=== PATIENT | male | born 1960 | race Caucasian/White ===

== ENCOUNTER 2021-06-04 16:25 | Emergency (ER) | payer MEDICAID, OTHER ==
[~2021-06-04] VITALS: Ht 190.5 cm; Wt 62.4 kg
[2021-06-04] MEDS ORDERED: FAMOTIDINE (10MG/ML) 2ML VL IV ONE (17:15)
[2021-06-04] MEDS ORDERED: ALUM & MAG HYDROX-SIMETH LIQ(MAALOX) 30 ML PO ONE (17:15)
[2021-06-04] MEDS ORDERED: LIDOCAINE VISCOUS 2% 15ML UD PO ONE (17:15)
[2021-06-04] MEDS ORDERED: ONDANSETRON HCL 4 MG/2 ML VIAL IV ONE (17:15)
[2021-06-04 17:52] LABS: Urine Bacteria NONE SEEN /hpf (None Seen); Urine Blood Negative /uL (Negative); Urine Specific Gravity 1.017 (1.001-1.035); Urine WBC <1 /hpf (0 - 3)
[2021-06-04 19:33] LABS: Basophils # (auto) 0 10 ^3/uL (0-0.2); Basophils % (auto) 0.4 % (0.0-2.0); Eosinophils # (auto) 0 10 ^3/uL (0-0.8); Eosinophils % (auto) 0.4 % (0.0-7.0); Hematocrit 42.5 % (41.0-53.0); Hemoglobin 14.4 g/dL (13.5-17.5); Lymphocytes # (auto) 1.6 10 ^3/uL (0.4-5.4); Lymphocytes % (auto) 17.6 % (10.0-50.0); Mean Corpuscular Hemoglobin 29.7 pg (28.0-32.0); Mean Corpuscular Hgb Conc. 33.8 g/dL (32.0-36.0); Mean Corpuscular Volume 87.7 fL (80.0-100.0); Monocytes % (auto) 11.3 % (0.0-12.0); Neutrophils # (auto) 6.2 10 ^3/uL (1.6-8.6); Neutrophils % (auto) 70.3 % (37.0-80.0); Red Blood Cells 4.85 10^6/uL (4.5-5.90); Red Cell Distribution Width 14.6 % (11.8-14.3); White Blood Cell 8.8 10^3/uL (4.4-10.8)
[2021-06-04 19:50] LABS: Albumin 3.7 g/dL (3.4-5.0); Calcium 9.2 mg/dL (8.5-10.1); Potassium 4.4 mmol/L (3.5-5.1)
[2021-06-04 19:52] LABS: BUN/Creatinine Ratio 9.1
[2021-06-04 19:57] LABS: Bilirubin, Total 0.6 mg/dL (0.2-1.0); Total Protein 7.4 g/dL (6.4-8.2)
[2021-06-04] MEDS ORDERED: ONDANSETRON ODT 4 MG TAB PO ONE (20:15)
[2021-06-04] MEDS ORDERED: FAMOTIDINE 20 MG TAB PO ONE (20:30)
[2021-06-04] MEDS ORDERED: LACTULOSE 20Gm/30ML SOLN PO ONE (21:45)
[2021-06-04] MEDS ORDERED: POLYETHYLENE GLYCOL 17 GM PWDR PO ONE (21:45)
[2021-06-04] MEDS ORDERED: DOCUSATE SOD 100 MG CAP PO ONE (21:45)
[2021-06-04] MEDS ORDERED: DOCU-94 PO (22:43)
[2021-06-04 23:00] VITALS: BP 124/71
== END 2021-06-04 23:06 | disposition home or self-care (01) ==
LOC: ER 16:25
DX: K59.00 Constipation, unspecified (principal); N17.9 Acute kidney failure, unspecified; R91.1 Solitary pulmonary nodule; Z79.899 Other long term (current) drug therapy
CPT/HCPCS: 36415; 71046; 80053; 81001; 83605; 83690; 84484; 85025; 93005; 99285; Q0162

== ENCOUNTER → 2023-11-13 | Outpatient (CLI) | payer MEDICAID ==
[~2023-11-13] MED LIST: DOCU-94 PO
[2023-11-14 08:06] LABS: Thyroxine (T4) 7.9 ug/dL (4.5-12.0)
== END | disposition home or self-care (01) ==
LOC: LAB 08:15
PROVIDERS: ATTEND Internal Medicine
DX: I10 Essential (primary) hypertension (principal); E66.9 Obesity, unspecified; Z79.899 Other long term (current) drug therapy
CPT/HCPCS: 36415; 83036; 84443

== ENCOUNTER 2024-03-24 11:24 | Inpatient (IN) | payer MEDICAID ==
[~2024-03-24] VITALS: Ht 190.5 cm; Wt 141.8 kg
[~2024-03-24 11:24] MED LIST changes: +ATEN50TA PO; +BACL20TA PO; +SEMA2.4I SC
--- NOTE | 2024-03-24 11:58 | DVH ---
CHEST RADIOGRAPH Indication: sob Technique: Single frontal view of the chest was obtained COMPARISON: None FINDINGS: Lines and Tubes: None Lungs: Clear Pleura: No effusion. No pneumothorax. Cardiomediastinal contours: Unremarkable Bones: Unremarkable IMPRESSION: No acute disease.
--- NOTE | 2024-03-24 12:08 | ED.PDOC ---
History of Present Illness HPI Comments 63 y/o M presents with c/o shortness of breath and cough for the past 2x weeks, today. He denies having any palpitations, chest pain, wheezing, dizziness, or other associated symptoms or modifiers at this time. Chief Complaint: Shortness of Breath Time Seen by MD: 11:45 Primary Care Provider: KAREN Zavala Notes: Nurses Notes, Medications, Allergies Allergies: Coded Allergies: NO KNOWN ALLERGIES (Unverified , 06/04/21) Home Meds Active Scripts Docusate Sodium (Colace) 100 Mg Cap, 1 CAP PO BID for 7 Days, #14 CAP Prov:SAMANTHA GARCIA MD 06/04/21 Information Source: Patient Mode of Arrival: Ambulatory Severity: Moderate Timing: Hours Duration: Since onset Prehospital treatment: None Past Medical History PAST MEDICAL HISTORY: Asthma, HTN Past Medical History (Other): morbid obesity, L-4-5 injury Surgical History: Denies all surgeries Family History Family History: Reviewed,noncontributory to illness, No family hx of Cancer, No family hx of DM, No family hx of Heart jenny, No family hx of HTN, No family hx ofKidney jenny, No family hx of Liver jenny, No family hx of Lung jenny, No family hx of Stroke Social History Smoker: Non-Smoker, Secondhand Alcohol: Denies ETOH Use Drugs: Denies Drug Use Lives In: Home Respiratory: reports: cough, shortness of breath All Other Systems: Reviewed and Negative (negative unless otherwise stated above or in HPI) Physical Exam General Appearance: Moderate Distress HEENT: Normal ENT Inspection, Pharynx Normal, TMs Normal Neck: Full Range of Motion, Non-Tender, Normal, Normal Inspection Respiratory: Other (Coarse breath sounds) Cardiovascular: No Edema, No JVD, No Murmur, No Gallop, Normal Peripheral Pulses, Regular Rate/Rhythm Breast Exam: Deferred Gastrointestinal: No Organomegaly, Non Tender, No Pulsatile Mass, Normal Bowel Sounds, Soft Genitalia: Deferred Pelvic: Deferred Rectal: Deferred Extremities: No calf tenderness, Normal capillary refill, Normal inspection, Normal range of motion, Non-tender, No pedal edema Musculoskeletal : Apperance: Normal Neurologic: Alert, 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 Was a procedure done?: No EKG EKG : Pulse Rate (adult): 80 [place]: Normal Cardiac Rhythm: NSR Block: None Hypertrophy: None ST: Normal Differential Dx Considerations may include: Bronchitis Upper respiratory tract infection X-Ray, Labs, Meds, VS Vital Signs Date Time Temp Pulse Resp B/P (MAP) Pulse Ox O2 Delivery O2 Flow Rate FiO2 03/24/24 12:08 80 03/24/24 11:44 80 03/24/24 11:35 22 96 Room Air* 0 21 03/24/24 11:35 97.8 86 22 144/84 (104) 96 Lab Test 03/24/24 12:00 Range/Units White Blood Count 4.7 4.4-10.8 10^3/uL Red Blood Count 4.61 4.5-5.90 10^6/uL Hemoglobin 13.6 13.5-17.5 g/dL Hematocrit 39.8 L 41.0-53.0 % Mean Corpuscular Volume 86.4 80.0-100.0 fL Mean Corpuscular Hemoglobin 29.5 28.0-32.0 pg Mean Corpuscular Hemoglobin Concent 34.1 32.0-36.0 g/dL Red Cell Distribution Width 13.9 11.8-14.3 % Platelet Count 160 140-450 10^3/uL Mean Platelet Volume 7.8 6.9-10.8 fL Neutrophils (%) (Auto) 52.5 37.0-80.0 % Lymphocytes (%) (Auto) 36.9 10.0-50.0 % Monocytes (%) (Auto) 8.9 0.0-12.0 % Eosinophils (%) (Auto) 1.1 0.0-7.0 % Basophils (%) (Auto) 0.6 0.0-2.0 % Neutrophils # (Auto) 2.5 1.6-8.6 10 ^3/uL Lymphocytes # (Auto) 1.7 0.4-5.4 10 ^3/uL Monocytes # (Auto) 0.4 0-1.3 10 ^3/uL Eosinophils # (Auto) 0.1 0-0.8 10 ^3/uL Basophils # (Auto) 0 0-0.2 10 ^3/uL Nucleated Red Blood Cells 0.1 % D-Dimer, Quantitative 0.36 0.0-0.49 mg/L FEU Sodium Level 142 136-145 mmol/L Potassium Level 4.0 3.5-5.1 mmol/L Chloride Level 108 H 98-107 mmol/L Carbon Dioxide Level 26 20-31 mmol/L Anion Gap 8 5-15 Blood Urea Nitrogen 11 9-23 mg/dL Creatinine 1.05 0.700-1.30 mg/dL Glomerular Filtration Rate Calc 79 >90 mL/min BUN/Creatinine Ratio 10.5 10.0-20.0 Serum Glucose 82 74-106 mg/dL Calcium Level 9.4 8.7-10.4 mg/dL Troponin I High Sensitivity 3 L </=54 ng/L Influenza Type A Antigen Pending Influenza Type B Antigen Pending [place] [id number] Ph: [phone] DIAGNOSTIC IMAGING Diagnostic Imaging Report : [id number] Signed PATIENT: KARELY GARCIA ACCT: [id number] UNIT: [id number] : 1960 LOC: ER ROOM / BED: / AGE / SEX: 63 / M ADM STATUS: REG ER SERVICE 44 ORDERING PHYSICIAN: STARLA FUENTES MD PROCEDURE(s): CXRP - CHEST PORTABLE REASON: sob ORDER NUMBER(s): [id number], ACCESSION NUMBER(s): [id number] CHEST RADIOGRAPH Indication: sob Technique: Single frontal view of the chest was obtained COMPARISON: None FINDINGS: Lines and Tubes: None Lungs: Clear Pleura: No effusion. No pneumothorax. Cardiomediastinal contours: Unremarkable Bones: Unremarkable IMPRESSION: No acute disease. ATED BY: SHANE HOFFMAN MD DICTATED DATE/TIME: 03/24/24 115 SIGNED BY: SHANE HOFFMAN MD SIGNED DATE/TIME: 03/24/24 115 CC: Patient alert. Complaining of shortness a breath. Vitals stable. Answering all questions. Chest x-ray reviewed does not show any acute changes. EKG reviewed does not show any acute changes. Explained to the patient. Time of 1ST Reevaluation: 12:15 Reevaluation 1ST: Unchanged Patient Education/Counseling: Diagnosis, Treatment Family Education/Counseling: No Family Present Departure 1 Departure Time of Disposition: 12:41 Impression: Primary Impression: Bronchitis Disposition: 01 HOME / SELF CARE / HOMELESS Condition: Good Discharged With: Self Critical Care Note Critical Care Time?: No Stability Stability form required: No Heart Score Heart Score: Heart Score Response (Comments) Value History N/A 0 EKG N/A 0 Age N/A 0 Risk Factors N/A 0 Troponin N/A 0 Total 0 I personally scribed for STARLA FUENTES MD ([email or web address]) on 03/24/24 at 12:08. Electronically submitted by Chuck Kaur ([email or web address]). STARLA FUENTES MD Mar 24, 2024 12:08
[2024-03-24 12:17] LABS: Basophils # (auto) 0 10 ^3/uL (0-0.2); Basophils % (auto) 0.6 % (0.0-2.0); Eosinophils # (auto) 0.1 10 ^3/uL (0-0.8); Eosinophils % (auto) 1.1 % (0.0-7.0); Hematocrit 39.8 % (41.0-53.0); Hemoglobin 13.6 g/dL (13.5-17.5); Lymphocytes # (auto) 1.7 10 ^3/uL (0.4-5.4); Lymphocytes % (auto) 36.9 % (10.0-50.0); Mean Corpuscular Hemoglobin 29.5 pg (28.0-32.0); Mean Corpuscular Hgb Conc. 34.1 g/dL (32.0-36.0); Mean Corpuscular Volume 86.4 fL (80.0-100.0); Monocytes # (auto) 0.4 10 ^3/uL (0-1.3); Monocytes % (auto) 8.9 % (0.0-12.0); Neutrophils # (auto) 2.5 10 ^3/uL (1.6-8.6); Neutrophils % (auto) 52.5 % (37.0-80.0); Nucleated Red Blood Cells % 0.1 %; Platelet Count (auto) 160 10^3/uL (140-450); Red Blood Cells 4.61 10^6/uL (4.5-5.90); Red Cell Distribution Width 13.9 % (11.8-14.3); White Blood Cell 4.7 10^3/uL (4.4-10.8)
[2024-03-24 12:29] LABS: Sodium 142 mmol/L (136-145)
[2024-03-24 12:30] LABS: Anion Gap 8 (5-15); Calcium 9.4 mg/dL (8.7-10.4); Carbon Dioxide 26 mmol/L (20-31)
[2024-03-24 12:35] LABS: BUN/Creatinine Ratio 10.5 (10.0-20.0); Blood Urea Nitrogen 11 mg/dL (9-23); Glucose 82 mg/dL (74-106)
[2024-03-24 12:54] LABS: Chloride 108 mmol/L (98-107)
[2024-03-24 18:35] LABS: Rapid Influenza A Negative (Negative); Rapid Influenza B Negative (Negative)
[2024-03-24] MEDS ORDERED: cefTRIAXone 1GM/50ML D5W 50 ML IV ONE (21:00)
[2024-03-24] MEDS: IPRATROPIUM BROM 0.5 MG/2.5ML INH SOL NEB ONE (21:19)
[2024-03-24] MEDS: ALBUTEROL SULF 2.5 MG/0.5ML(0.5%) NEB SOLN NEB ONE (21:19)
--- NOTE | 2024-03-24 22:44 | DVHHPRES ---
History of Present Illness Resident Creating Document: MAGALI SMITH History of Present Illness This is a 63-year-old male with past medical history of asthma, hypertension, morbid obesity, past surgical history of left knee arthroscopy 30 years ago. The patient presented to the ED with chief complaint of shortness of breaths and cough. Patient states that symptoms started two weeks ago but worsened recently requiring visit to the ED. patient states that two weeks ago he started having shortness of breath associated with cough with sputum production whitish/ye llowish in color. The patient also stated that he has not been able to lie down on bed because of shortness of breath. Patient denies fever or chills at this time. Patient also reports bilateral lower extremity edema has been going on and off in the past 2 years and he believes that is due to bilateral knee ostearthritis. Initial labs were grossly unremarkable, chest x-ray was showing very mild vascular congestion but no evidence of solid consolidations at this time. We will order BNP and echocardiogram to rule out CHF. Patient states that has no past medical history of cardiac issues or even COPD. Patient was started on azithromycin and respiratory therapy. patient will be admitted for further assessment and management. Cardiovascular: HTN Pulmonary: Asthma Past Medical History None aside from mentioned. Past Surgical History: Arthroscopy (left knee arthroscopy 30 years ago) Family History: None Smoke: No ALCOHOL: none Drugs: None Lives: with Family Review of Systems Constitutional: No: Fever, Chills, Sweats, Weakness, Malaise, Other Eyes: No: Pain, Vision change, Conjunctivae inflammation, Eyelid inflammation, Other, Redness ENT: No: Ear pain, Ear discharge, Nose pain, Nose discharge, Nose congestion, Mouth pain, Mouth swelling, Throat pain, Throat swelling, Other Respiratory: Cough, Shortness of breath, Sputum; No: Dry, SOB with excertion, Wheezing, Hemoptysis, Pleuritic Pain, Wheezing, Other Cardiovascular: Orthopnea, Paroxysmal Noc. Dyspnea; No: Chest Pain, Palpitations, Edema, Lt Headedness, Other Gastrointestinal: No: Nausea, Vomiting, Abdominal Pain, Diarrhea, Constipation, Melena, Hematochezia, Other Genitourinary: No Dysuria, No Frequency, No Incontinence, No Hematuria, No Retention, No Other Musculoskeletal: No: other, neck pain, shoulder pain, arm pain, back pain, hand pain, leg pain, foot pain Skin: No: Rash, Lesions, Jaundice, Bruising, Other Neurological: No: Weakness, Numbness, Incoordination, Change in speech, Confusion, Seizures, Other Allergies: Coded Allergies: NO KNOWN ALLERGIES (Unverified , 06/04/21) Exam Vital Signs Vital Signs Date Time Temp Pulse Resp B/P (MAP) Pulse Ox O2 Delivery O2 Flow Rate FiO2 03/24/24 17:55 69 16 100 Room Air 03/24/24 17:55 97.3 134/85 (101) 97.3 03/24/24 11:35 0 21 General Appearance: Alert, Oriented X3, Cooperative, No acute distress HEENT: Atraumatic, PERRLA, EOMI, Mucous membr. moist/pink Respiratory: Normal air movement, Other (very mild bilat crackles) Cardiovascular: Regular rate, Normal S1, Normal S2, No murmurs Abdominal: Normal bowel sounds, Soft, No tenderness, No hepatospenomegaly, No masses Extremities: No clubbing, No cyanosis, No edema, Normal pulses, No tenderness/swelling Skin: No rashes, No breakdown, No significant lesion Neuro: Normal gait, Normal speech, Strength at 5/5 X4 ext, Normal tone, Sensation intact, Cranial nerves 3-12 NL, Reflexes 2+ Psych/Mental Status: Mental status NL, Mood NL Labs/Xrays Labs Test 03/24/24 17:44 03/24/24 12:00 Range/Units Influenza Type A Antigen Negative Negative Influenza Type B Antigen Negative Negative White Blood Count 4.7 4.4-10.8 10^3/uL Red Blood Count 4.61 4.5-5.90 10^6/uL Hemoglobin 13.6 13.5-17.5 g/dL Hematocrit 39.8 L 41.0-53.0 % Mean Corpuscular Volume 86.4 80.0-100.0 fL Mean Corpuscular Hemoglobin 29.5 28.0-32.0 pg Mean Corpuscular Hemoglobin Concent 34.1 32.0-36.0 g/dL Red Cell Distribution Width 13.9 11.8-14.3 % Platelet Count 160 140-450 10^3/uL Mean Platelet Volume 7.8 6.9-10.8 fL Neutrophils (%) (Auto) 52.5 37.0-80.0 % Lymphocytes (%) (Auto) 36.9 10.0-50.0 % Monocytes (%) (Auto) 8.9 0.0-12.0 % Eosinophils (%) (Auto) 1.1 0.0-7.0 % Basophils (%) (Auto) 0.6 0.0-2.0 % Neutrophils # (Auto) 2.5 1.6-8.6 10 ^3/uL Lymphocytes # (Auto) 1.7 0.4-5.4 10 ^3/uL Monocytes # (Auto) 0.4 0-1.3 10 ^3/uL Eosinophils # (Auto) 0.1 0-0.8 10 ^3/uL Basophils # (Auto) 0 0-0.2 10 ^3/uL Nucleated Red Blood Cells 0.1 % D-Dimer, Quantitative 0.36 0.0-0.49 mg/L FEU Sodium Level 142 136-145 mmol/L Potassium Level 4.0 3.5-5.1 mmol/L Chloride Level 108 H 98-107 mmol/L Carbon Dioxide Level 26 20-31 mmol/L Anion Gap 8 5-15 Blood Urea Nitrogen 11 9-23 mg/dL Creatinine 1.05 0.700-1.30 mg/dL Glomerular Filtration Rate Calc 79 >90 mL/min BUN/Creatinine Ratio 10.5 10.0-20.0 Serum Glucose 82 74-106 mg/dL Calcium Level 9.4 8.7-10.4 mg/dL Troponin I High Sensitivity 3 L </=54 ng/L Assessment/Plan Assessment/Plan Assessment/Plan Acute respiratory distress likely due to atypical pneumonia, R/O congestive heart failure -Patient currently with chronic cough and shortness of breath sat 96% on room air -Patient unable to lay down on bed (orthopnea) -Chest x ray showed mild pulm vasc congestion but no evidence on clear consolidations -Ordered CT chest w/o contrast -Influenza came back negative -Ordered Covid jayne antigen test -Ordered BNP -Monitor CBC -Start azithromycin IV -Start albuterol and Ipratropium med neb -Monitor Sao2 Possible bronchitis -Start albuterol and ipratropium med neb -Start azithromycin -Monitor saturation -Start antitussive PO PRN Rule out systolic/diastolic heart failure -There is bilateral pedal edema 1+ -patient has orthopnea -Ordered BNP -Ordered echocardiogram Goals of care discussed with the patient at bedside, FULL CODE Plan discussed with Dr. Martinez Plan discussed with: Patient My Orders Orders - MAGALI SMITH Procedure Category Date Status Time B-Type Natriuretic LAB 03/24/24 Logged Peptide 20:49 Admit ADMIT 03/24/24 Transmitted 20:50 Admit ADMIT 03/24/24 Transmitted 20:53 Code Status CODE 03/24/24 Transmitted 20:53 Vital Signs [facility] 03/24/24 In Process 20:53 Review Orders With [facility] 03/24/24 In Process Adm.Md 20:53 Notify Md Of Changes [facility] 03/24/24 In Process From Base 20:53 Advance Directive [facility] 03/24/24 In Process 20:53 Patient Condition ORDERS 03/24/24 Transmitted 20:53 Allergies [facility] 03/24/24 In Process 20:53 Ceftriaxone 1gm/50ml PHA 03/24/24 In Process D5w (Rocephin) 21:00 Azithromycin 500mg/ PHA 03/24/24 In Process 250ml (Zithromax 50 21:00 Covid19 Antigen Jayne LAB 03/24/24 Logged Date of Service: Mar 24, 2024 Billing Provider: PADMA MARTINEZ MD Common Visit Codes: [id number] INP/OBS CARE (HIGH) Secondary Visit Codes: [id number] CARE PLAN 30 MINUTES MAGALI SMITH RESIDENT Mar 24, 2024 22:44 PADMA MARTINEZ MD Mar 25, 2024 08:32
[2024-03-24 23:10] VITALS: PULSE 91; RESP 21; O2SAT 96
[2024-03-24] MEDS: AZITHROMYCIN 500MG/ 250ML 250 ML IV ONE (23:11)
[2024-03-25] VITALS (12 sets, daily range): BP systolic 109–130; BP diastolic 54–77; PULSE 72–99; RESP 16–21; TEMP 97.3–98.5; O2SAT 92–100
[2024-03-25] MEDS ORDERED: PNEUMOCOCCAL VACC POLYS 25 MCG/0.5 ML VIAL IM ONE (05:00)
[2024-03-25] MEDS ORDERED: INFLUENZA TRIVALENT 2024-2025 0.5 ML INJ IM ONE (05:00)
[2024-03-25 05:01] LABS: COVID19 ANTIGEN SOFIA FIA NEGATIVE (NEGATIVE)
--- NOTE | 2024-03-25 05:43 | DVH ---
Procedure: CT CHEST WITHOUT CONTRAST Reason for study/Clinical History: possible atypical/viral pneumonia Comparison Study: Chest x-ray 03/24/2024 Exam Date: 03/24/2024 11:28 PM TECHNIQUE: Multidetector CT of the chest was performed from the lung apices to the upper abdomen with out the use of intravenous contract. Axial, coronal and sagittal multiplanar reformats were performed . Radiation Dose Information: CT Dose: CTDI volume is 28.65 mGy. Dose-length product is 1149.64 mGy*cm The dose indicators for CT are the volume Computed Tomography (CT) Dose Index (CTDIvol) and the Dose Length Product (DLP), and are measured in units of mGy and mGy-cm, respectively. These indicators are not patient dose, but values generated from the CT scanner acquisition factors. The report includes radiation exposure data for exposures received during this examination. Radiation optimization: All C T scans at this facility use at least one of these dose optimization techniques: automated exposure c ontrol mA and/or kV adjustment per patient size (includes targeted exams where dose is matched to cl inical indication) or iterative reconstruction. FINDINGS: The thyroid gland appears unremarkable. The airway is patent. There is no mediastinal or hilar adeno angelika. There are coronary artery calcifications and small pericardial effusion. There is a calcified granuloma in the right upper lobe. The lungs appear otherwise clear without focal airspace opacity, consolidation, or effusion. No suspicious nodule. Visualized portions of the upper abdomen demonstrate small hiatal hernia. Nonspecific fullness of the left adrenal gland. Hypodensity in the right hepatic lobe likely represents a cyst. IMPRESSION: 1. No acute intrathoracic abnormality. 2. Severe Coronary artery calcifications.
[2024-03-25] MEDS ORDERED: ACETAMINOPHEN 325 MG TAB PO PRN (10:00)
[2024-03-25] MEDS ORDERED: traMADol HCL 50 MG TAB PO PRN (10:00)
[2024-03-25 10:56] LABS: Urine Bacteria None Seen /hpf (None Seen)
[2024-03-25] MEDS: ENOXAPARIN SOD 40 MG/0.4 ML SYRINGE SC ONE (11:00)
[2024-03-25] MEDS: FUROSEMIDE 20 MG/2 ML VIAL IV ONE (11:00)
--- NOTE | 2024-03-25 11:18 | DVHPN2 ---
Subjective Seen and examined at bedside. Patient unable to lay flat. Reviewed CT Chest, needs cardiac evaluation (Stress Test). Changes from previous H/P or p: No Changes Eyes: No Pain, No Vision change, No Conjunctivae inflammation, No Eyelid inflammation, No Other, No Redness ENT: No Ear pain, No Ear discharge, No Nose pain, No Nose discharge, No Nose congestion, No Mouth pain, No Mouth swelling, No Throat pain, No Throat swelling, No Other Cardiovascular: No Chest Pain, No Palpitations; Orthopnea, Paroxysmal Noc. Dyspnea; No Edema, No Lt Headedness, No Other Respiratory: Cough; No Dry; Shortness of breath; No SOB with excertion, No Wheezing, No Hemoptysis, No Pleuritic Pain; Sputum; No Other Gastrointestinal: No Nausea, No Vomiting, No Abdominal Pain, No Diarrhea, No Constipation, No Melena, No Hematochezia, No Other Genitourinary: No Dysuria, No Frequency, No Incontinence, No Hematuria, No Retention, No Other Musculoskeletal: No other, No neck pain, No shoulder pain, No arm pain, No back pain, No hand pain, No leg pain, No foot pain Skin: No Rash, No Lesions, No Jaundice, No Bruising, No Other Objective Vitals Vital Signs Date Time Temp Pulse Resp B/P (MAP) Pulse Ox O2 Delivery O2 Flow Rate FiO2 03/25/24 11:00 149/87 03/25/24 08:31 98.3 72 16 95 98.3 03/25/24 08:00 Room Air* 0 21 Intake/Output Intake and Output 03/25/24 07:00 Intake Total 250 ml Balance 250 ml Intake Oral 0 ml IV Total 250 ml Exam Gen: in bed mild distress Cvs: N S1/S2, RRR Resp: Creps + Wheezing Abd: Morbidly Obese Earring Maker: AAO x 4 Medications Current Medications Medications Dose Ordered Sig/Pilar Route Start Time Stop Time Status Last Admin Dose Admin Albuterol 2.5 mg Q6HP PRN NEB 03/24/24 22:00 Ipratropium [place] 0.5 mg Q6HP PRN NEB 03/24/24 22:00 Azithromycin 250 ml @ 125 mls/hr DAILY@2200 IV 03/25/24 22:00 Guaifenesin/ Dextromethorphan 10 ml Q4HP PRN PO 03/25/24 00:45 Acetaminophen 650 mg Q6HP PRN PO 03/25/24 10:00 Tramadol HCl 50 mg Q6HP PRN PO 03/25/24 10:00 Furosemide 20 mg BIDD IV 03/25/24 18:00 Enoxaparin Sodium 40 mg DAILY SC 03/26/24 10:00 Laboratory Results Laboratory Tests 03/24/24 12:00 Chemistry Test 03/24/24 12:00 Calcium Level 9.4 mg/dL (8.7-10.4) Coagulation Test 03/24/24 12:00 D-Dimer, Quantitative 0.36 mg/L FEU (0.0-0.49) Cardiac Markers Test 03/24/24 12:00 B-Type Natriuretic Peptide 33.06 pg/mL (0-100) Urinalysis Test 03/25/24 09:53 Urine Color Pending Urine Clarity Pending Urine pH Pending Urine Specific [place] Pending Urine Protein Pending Urine Ketones Pending Urine Blood Pending Urine Nitrite Pending Urine Bilirubin Pending Urine Urobilinogen Pending Urine Leukocyte Esterase Pending Urine RBC Pending Urine WBC Pending Urine Squamous Epithelial Cells Pending Urine Bacteria Pending Urine Glucose Pending Assessment/Plan Assessment/Plan # Acute Systolic vs Diastolic CHF - Lasix IV - ECHO # Severe Coronary Calcifications per CT - Needs Cardio Eval - Stress Test # Possible Bronchopneumonia - Zithromax - Duoneb # 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 # Goals of care DNR/DNI Plan discussed with: Patient My Orders Orders - PADMA LOVE MD Procedure Category Date Status Time Acetaminophen Tablet PHA 03/25/24 In Process (Tylenol Tablet) 10:00 Tramadol Hcl (Ultram) PHA 03/25/24 In Process 10:00 Furosemide Injection PHA 03/25/24 In Process (Lasix Injection) 18:00 B-Type Natriuretic LAB 03/26/24 Verified Peptide 04:00 Comprehensive LAB 03/26/24 Verified Metabolic Panel 04:00 Magnesium LAB 03/26/24 Verified 04:00 Vitamin D, 25-Hydroxy LAB 03/25/24 In Process 09:51 Hemoglobin A1c LAB 03/26/24 Verified 04:00 Thyroid Stimulating LAB 03/26/24 Verified Hormone 04:00 Urinalysis LAB 03/25/24 In Process 09:53 Enoxaparin Sodium PHA 03/26/24 In Process (Lovenox) 10:00 Regular Diet DIET 03/25/24 Verified Lunch Date of Service: Mar 25, 2024 Billing Provider: PADMA LOVE MD Common Visit Codes: [id number] INP/OBS CARE(HIGH) PADMA LOVE MD Mar 25, 2024 11:18
[2024-03-25 11:23] LABS: Urine Blood Negative /uL (Negative); Urine Clarity Clear (Clear); Urine Color Yellow (Yellow); Urine Mucus FEW (None Seen); Urine Protein, UAD Negative (Negative); Urine Specific Gravity 1.022 (1.001-1.035); Urine Squamous Epithelial Cell None Seen /hpf (<5); Urine Urobilinogen 2 mg/dL (Negative); Urine WBC 1 /hpf (0 - 3)
--- NOTE | 2024-03-25 14:32 | DVHSR ---
APPROVED REPORT EXAM: Two-dimensional and M-mode echocardiogram with Doppler and color Doppler. Blood Pressure: 109/54 mmHg INDICATION R/O CHF RISK FACTORS Height: 75, Weight: 314 DIMENSIONS LVDd4.7 (3.8-5.7cm)LA (2D)4.2 (1.9-4.0cm)Aortic Root3.6 (2.0-3.7cm) LVDs2.9 (2.5-4.0cm)LA (MM) (1.9-4.0cm)Aortic Cusp Exc2.4 (1.5-2.0cm) EF (%) 68.0 (55-70%)Rt. Atrium (1.9-4.0cm)Asc. Aorta cm IVSd1.4 (0.7-1.1cm)RV (D) (1.8-2.4cm) PWd1.4 (0.7-1.1cm) Mitral Valve MitralMitral Stenosis E wave0.59m/sMV Mean GR.mmHg A wave0.61m/sMV Peak GR.mmHg E/A ratio1.02D MVAcm2 DECEL [id number] 1/2 [id number] IVRTmsDop MVA2.20cm2 Aortic Valve Aortic ValveAortic Stenosis V10.83m/Crescencio Mean GR.3mmHg V21.30m/Crescencio Peak GR.7mmHg LVOT Diameter2.5 (1.8-2.4cm)Doppler AVA3.13cm2 Other Information Technically limited study due to body habitus. Conclusion NORMAL LV EJECTION FRACTION OF 65% MILD MVP NORMAL TV,PV AND AORTIC VALVE NORMAL RV FUNCTION NO EFFUSION
[2024-03-25] MEDS: ALBUTEROL SULF 2.5 MG/0.5ML(0.5%) NEB SOLN NEB PRN (19:19)
[2024-03-25] MEDS: IPRATROPIUM BROM 0.5 MG/2.5ML INH SOL NEB PRN (19:19)
[2024-03-25] MEDS: FUROSEMIDE 20 MG/2 ML VIAL IV SCH (19:31)
[2024-03-25] MEDS: AZITHROMYCIN 500MG/ 250ML 250 ML IV SCH (22:21)
[2024-03-26] VITALS (9 sets, daily range): BP systolic 115–141; BP diastolic 62–86; PULSE 75–89; RESP 16–20; TEMP 97.8–98.3; O2SAT 93–100
[2024-03-26 08:22] LABS: Alkaline Phosphatase 64 U/L (46-116); Anion Gap 9 (5-15); BUN/Creatinine Ratio 13.1 (10.0-20.0); Blood Urea Nitrogen 14 mg/dL (9-23); Calcium 9.7 mg/dL (8.7-10.4); Carbon Dioxide 25 mmol/L (20-31); Glucose 100 mg/dL (74-106); Potassium 3.5 mmol/L (3.5-5.1); Sodium 142 mmol/L (136-145)
[2024-03-26 08:23] LABS: Albumin 4.1 g/dL (3.2-4.8); Aspartate Aminotransferase 30 U/L (13-40); Bilirubin, Total 0.6 mg/dL (0.2-1.0); Total Protein 6.4 g/dL (5.7-8.2)
[2024-03-26 08:24] LABS: Alanine Aminotransferase 47 U/L (7-40); Chloride 108 mmol/L (98-107)
[2024-03-26] MEDS: ENOXAPARIN SOD 40 MG/0.4 ML SYRINGE SC SCH (09:51)
--- NOTE | 2024-03-26 16:40 | DVHPN2 ---
Subjective Seen and examined at bedside. Improving, possible DC in 1-2 days Changes from previous H/P or p: No Changes Eyes: No Pain, No Vision change, No Conjunctivae inflammation, No Eyelid inflammation, No Other, No Redness ENT: No Ear pain, No Ear discharge, No Nose pain, No Nose discharge, No Nose congestion, No Mouth pain, No Mouth swelling, No Throat pain, No Throat swelling, No Other Cardiovascular: No Chest Pain, No Palpitations; Orthopnea, Paroxysmal Noc. Dyspnea; No Edema, No Lt Headedness, No Other Respiratory: Cough; No Dry; Shortness of breath; No SOB with excertion, No Wheezing, No Hemoptysis, No Pleuritic Pain; Sputum; No Other Gastrointestinal: No Nausea, No Vomiting, No Abdominal Pain, No Diarrhea, No Constipation, No Melena, No Hematochezia, No Other Genitourinary: No Dysuria, No Frequency, No Incontinence, No Hematuria, No Retention, No Other Musculoskeletal: No other, No neck pain, No shoulder pain, No arm pain, No back pain, No hand pain, No leg pain, No foot pain Skin: No Rash, No Lesions, No Jaundice, No Bruising, No Other Objective Vitals Vital Signs Date Time Temp Pulse Resp B/P (MAP) Pulse Ox O2 Delivery O2 Flow Rate FiO2 03/26/24 13:00 98.0 84 20 118/62 (80) 94 98.0 03/26/24 10:00 Room Air* 0 21 Intake/Output Intake and Output 03/26/24 07:00 Intake Total 1570 ml Balance 1570 ml Intake Oral 1570 ml # Voids 8 # Bowel Movements 2 Exam Gen: in bed NAD distress Cvs: N S1/S2, RRR Resp: Creps + Wheezing Abd: Morbidly Obese Data Analysis Intern: AAO x 4 Medications Current Medications Medications Dose Ordered Sig/Pilar Route Start Time Stop Time Status Last Admin Dose Admin Albuterol 2.5 mg Q6HP PRN NEB 03/24/24 22:00 03/26/24 09:29 2.5 MG Ipratropium [place] 0.5 mg Q6HP PRN NEB 03/24/24 22:00 03/26/24 09:29 0.5 MG Azithromycin 250 ml @ 125 mls/hr DAILY@2200 IV 03/25/24 22:00 03/25/24 22:21 125 MLS/HR Guaifenesin/ Dextromethorphan 10 ml Q4HP PRN PO 03/25/24 00:45 Acetaminophen 650 mg Q6HP PRN PO 03/25/24 10:00 Tramadol HCl 50 mg Q6HP PRN PO 03/25/24 10:00 Furosemide 20 mg BIDD IV 03/25/24 18:00 03/25/24 19:31 20 MG Enoxaparin Sodium 40 mg DAILY SC 03/26/24 10:00 03/26/24 09:51 40 MG Laboratory Results Laboratory Tests 03/24/24 12:00 03/26/24 07:14 Chemistry Test 03/26/24 07:14 Albumin 4.1 g/dL (3.2-4.8) Calcium Level 9.7 mg/dL (8.7-10.4) Magnesium Level 2.0 mg/dL (1.6-2.6) Total Protein 6.4 g/dL (5.7-8.2) Cardiac Markers Test 03/26/24 07:14 B-Type Natriuretic Peptide 5.29 pg/mL (0-100) LFT Test 03/26/24 07:14 Alanine Aminotransferase (ALT) 47 U/L (7-40) H Alkaline Phosphatase 64 U/L (46-116) Aspartate Amino Transferase (AST) 30 U/L (13-40) Total Bilirubin 0.6 mg/dL (0.2-1.0) HgA1c, TSH Test 03/26/24 07:14 Hemoglobin A1c 5.7 % A1C (<5.7) Thyroid Stimulating Hormone (TSH) 2.08 uIU/mL (0.55-4.78) Urinalysis Test 03/25/24 09:53 Urine Color Yellow (Yellow) Urine Clarity Clear (Clear) Urine pH 6.0 (5.0-9.0) Urine Specific [place] 1.022 (1.001-1.035) Urine Protein Negative (Negative) Urine Ketones Negative (Negative) Urine Blood Negative /uL (Negative) Urine Nitrite Negative (Negative) Urine Bilirubin Negative (Negative) Urine Urobilinogen 2 mg/dL (Negative) H Urine Leukocyte Esterase Negative /uL (Negative) Urine RBC 1 /hpf (0 - 3) Urine WBC 1 /hpf (0 - 3) Urine Squamous Epithelial Cells None seen /hpf (<5) Urine Bacteria None seen /hpf (None Seen) Urine Mucus Few (None Seen) Urine Glucose Normal mg/dL (Normal) Assessment/Plan Assessment/Plan # Acute Systolic vs Diastolic CHF - Lasix IV - ECHO # Severe Coronary Calcifications per CT - Needs Cardio Eval - Stress Test # Possible Bronchopneumonia - Zithromax - Duoneb # Morbidly Obese - [employer]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
[2024-03-26] MEDS: POTASSIUM CHL 20 Meq TABLET PO ONE (16:58)
[2024-03-27] VITALS (9 sets, daily range): BP systolic 121–141; BP diastolic 75–80; PULSE 77–97; RESP 18–21; TEMP 97.3–97.7; O2SAT 91–95
[2024-03-27 06:06] LABS: Anion Gap 9 (5-15); Calcium 9.8 mg/dL (8.7-10.4); Carbon Dioxide 25 mmol/L (20-31); Chloride 107 mmol/L (98-107); Potassium 3.7 mmol/L (3.5-5.1); Sodium 141 mmol/L (136-145)
[2024-03-27 06:12] LABS: BUN/Creatinine Ratio 13.3 (10.0-20.0); Blood Urea Nitrogen 14 mg/dL (9-23); Glucose 99 mg/dL (74-106)
[2024-03-27 06:13] LABS: Magnesium 2.1 mg/dL (1.6-2.6)
[2024-03-27] MEDS: guaiFENesin-DM 100/10mg/5ml SYR PO PRN (10:06)
--- NOTE | 2024-03-27 11:46 | DVHINCON2 ---
Date Seen: Mar 27, 2024 Referring Physician MD Juan Reason for Consultation CAD History of Present Illness This is a 63-year-old man who presented to the emergency room with a chief complaint of shortness of breath for two weeks. The patient complains of progressive shortness of breath associated with PND and a productive cough with a white/yellow sputum. He underwent a chest CT revealing severe coronary artery calcifications prompting cardiology consultation. Denies chest pain, palpitations, diaphoresis, dizziness, or syncopal events. He underwent a 12 lead electrocardiogram revealing a normal sinus rhythm. Baseline troponin level is negative. Significant medical history includes chronic back pain and hypertension without pharmacological therapy as the patient reports using warm water with baking soda for blood pressure control. Significant familial history for cardiovascular disease includes father at 59-year-old from a massive myocardial infarction. Past Medical History Past medical history reviewed. No other significant than mentioned above. Past Surgical History Left knee Family History: Cardiovascular disease G8 FATHER, Hypertension G8 MOTHER Family History See HPI. Social History Denies the use of illicit drugs, alcohol, or tobacco use. Allergies: Coded Allergies: NO KNOWN ALLERGIES (Unverified , 06/04/21) Home Meds Reported Medications Semaglutide (Wegovy) 2.4 Mg/0.75 Ml Inj, 1 INJ SC QWEEKLY for 28 Days, #3 INJECT 0.75 MILILITERS SUBCUTANEOUSLY EVERY WEEK 03/25/24 Atenolol (Atenolol) 50 Mg Tab, 1 TAB PO DAILY for 15 Days, #15 03/25/24 Baclofen (Baclofen) 20 Mg Tab, 1 TAB PO QPM for 90 Days, #90 03/25/24 Home Meds Home medications reviewed. Review of Systems Constitutional: No symptom reported Ears, Nose, & Throat: No symptom reported Eyes: No symptom reported Neurological: No symptoms reported Pulmonary/Respiratory: SOB, PND Cardiovascular: No symptom reported Gastrointestinal: No symptom reported Genitourinary: No symptom reported Musculoskeletal: No symptom reported Skin: No symptom reported Psychiatric: No symptom reported Endocrine: No symptom reported Hemotologic/Lymphatic: No symptom reported Vital Signs Vital Signs Date Time Temp Pulse Resp B/P (MAP) Pulse Ox O2 Delivery O2 Flow Rate FiO2 03/27/24 09:08 97.6 82 21 129/75 (93) 91 97.6 03/26/24 22:43 Room Air* 0 21 Physical Exam General Appearance: Cooperative. Well developed. Obese. In no acute distress Head Exam: Normal inspection Neck Exam: Normal inspection. Non-tender. Normal alignment Pulmonary/Respiratory: Chest non-tender. Clear bilateral breath sounds Cardiovascular/Chest: Regular rate and rhythm. S1, S2. NSR. No murmurs. No JVD. Peripheral Pulses: 2+ Radial (R). 2+ Radial (L). 2+ Pedal (R). 2+ Pedal (L) Abdominal Exam: Normal bowel sounds. Soft. Ankle Exam: Positive ankle edema Lower extremities: Positive lower extremity edema, nonpitting, L>R Neuro/Mental Status: A&O x4. Coherent Thoughts/Psych: Normal thought pattern. Appropriate mood and affect. Good judgement and insight Appearance: In no acute distress Skin Exam: Normal inspection. Normal color. Warm. Dry Labs/Diagnostic Data Labs Test 03/27/24 04:38 03/26/24 07:14 03/25/24 10:30 03/25/24 09:53 Range/Units Sodium Level 141 136-145 mmol/L Potassium Level 3.7 3.5-5.1 mmol/L Chloride Level 107 98-107 mmol/L Carbon Dioxide Level 25 20-31 mmol/L Anion Gap 9 5-15 Blood Urea Nitrogen 14 9-23 mg/dL Creatinine 1.05 0.700-1.30 mg/dL Glomerular Filtration Rate Calc 79 >90 mL/min BUN/Creatinine Ratio 13.3 10.0-20.0 Serum Glucose 99 74-106 mg/dL Calcium Level 9.8 8.7-10.4 mg/dL Magnesium Level 2.1 1.6-2.6 mg/dL B-Type Natriuretic Peptide 3.60 0-100 pg/mL Hemoglobin A1c 5.7 <5.7 % A1C Total Bilirubin 0.6 0.2-1.0 mg/dL Aspartate Amino Transferase (AST) 30 13-40 U/L Alanine Aminotransferase (ALT) 47 H 7-40 U/L Alkaline Phosphatase 64 46-116 U/L Total Protein 6.4 5.7-8.2 g/dL Albumin 4.1 3.2-4.8 g/dL Thyroid Stimulating Hormone (TSH) 2.08 0.55-4.78 uIU/mL Vitamin D 25-Hydroxy 42.4 30.0-100 ng/mL Urine Color Yellow Yellow Urine Clarity Clear Clear Urine pH 6.0 5.0-9.0 Urine Specific [place] 1.022 1.001-1.035 Urine Protein Negative Negative Urine Ketones Negative Negative Urine Blood Negative Negative /uL Urine Nitrite Negative Negative Urine Bilirubin Negative Negative Urine Urobilinogen 2 H Negative mg/dL Urine Leukocyte Esterase Negative Negative /uL Urine RBC 1 0 - 3 /hpf Urine WBC 1 0 - 3 /hpf Urine Squamous Epithelial Cells None seen <5 /hpf Urine Bacteria None seen None Seen /hpf Urine Mucus Few None Seen Urine Glucose Normal Normal mg/dL Test 03/25/24 04:15 03/24/24 17:44 03/24/24 12:00 Range/Units SARS-CoV-2 Antigen (Rapid) Negative NEGATIVE Influenza Type A Antigen Negative Negative Influenza Type B Antigen Negative Negative White Blood Count 4.7 4.4-10.8 10^3/uL Red Blood Count 4.61 4.5-5.90 10^6/uL Hemoglobin 13.6 13.5-17.5 g/dL Hematocrit 39.8 L 41.0-53.0 % Mean Corpuscular Volume 86.4 80.0-100.0 fL Mean Corpuscular Hemoglobin 29.5 28.0-32.0 pg Mean Corpuscular Hemoglobin Concent 34.1 32.0-36.0 g/dL Red Cell Distribution Width 13.9 11.8-14.3 % Platelet Count 160 140-450 10^3/uL Mean Platelet Volume 7.8 6.9-10.8 fL Neutrophils (%) (Auto) 52.5 37.0-80.0 % Lymphocytes (%) (Auto) 36.9 10.0-50.0 % Monocytes (%) (Auto) 8.9 0.0-12.0 % Eosinophils (%) (Auto) 1.1 0.0-7.0 % Basophils (%) (Auto) 0.6 0.0-2.0 % Neutrophils # (Auto) 2.5 1.6-8.6 10 ^3/uL Lymphocytes # (Auto) 1.7 0.4-5.4 10 ^3/uL Monocytes # (Auto) 0.4 0-1.3 10 ^3/uL Eosinophils # (Auto) 0.1 0-0.8 10 ^3/uL Basophils # (Auto) 0 0-0.2 10 ^3/uL Nucleated Red Blood Cells 0.1 % D-Dimer, Quantitative 0.36 0.0-0.49 mg/L FEU Troponin I High Sensitivity 3 L </=54 ng/L Assessment Acute bronchitis Rule out coronary artery disease Pertinent family history for CAD Pre-diabetes, newly diagnosed Hypertension Obesity Plan/Recommendation (Dr. Alcantara) The patient with acute bronchitis underwent a chest CT with incidental findings of severe coronary artery calcifications. Given risk factors including HTN, pre-DM, obesity and pertinent family history for CAD including father from a massive [place], the patient will be scheduled for a cardiolite stress test at first available. In the meantime, initiate ASA, lipid-lowering agent, and BB. Echocardiogram revealed EF 65%. Rest of plan per clinical course. Thank you for allowing us to participate in this patient's care. Please call if you have any questions or concerns. This medical document was created using an electronic medical record system with voice recognition software and computerized dictation system. Although this document has been carefully reviewed, there might still be some phonetic and typographical errors. Occasional wrong-word or ``sound-alike substitutions may have occurred due to the inherent limitations of voice recognition software. These areas are purely typographical due to imperfections of the software programs and do not reflect any compromise in the patient's medical care. Please read the chart carefully and recognize, using context, where these substitutions have occurred. Plan discussed with: Patient, Other Date of Service: Mar 27, 2024 Billing Provider: KRISTIAN ALCANTARA MD Cardiology Common Codes: [id number] INP/OBS CARE (High) AIDA HUTTON [employer]PERATOR [employer] Mar 27, 2024 11:46
[2024-03-27 12:22] LABS: Triglycerides 134 mg/dL (< 150)
[2024-03-27 12:23] LABS: LDL Cholesterol 99 mg/dL (< 100)
[2024-03-27 12:25] LABS: Cholesterol 142 mg/dL (< 200)
[2024-03-27 12:27] LABS: HDL Cholesterol 30 mg/dL (40-59)
[2024-03-27] MEDS ORDERED: REGADENOSON 0.4 MG/5 ML SYRG IV ONE (13:06)
[2024-03-27] MEDS: REGADENOSON 0.4 MG/5 ML SYRG IV ONE (13:16)
--- NOTE | 2024-03-27 15:16 | DVHSR ---
APPROVED REPORT Exam: Nuclear Stress Test BMI: 0 Stress Test Details HR Max Heart Rate (APMHR): 156 bpm Target HR (85% APMHR): 133 bpm BP ECG Stress ECG Conclusion Review of the myocardial perfusion images demonstrated a large area of severe intensity reduced radio tracer uptake in the inferior wall. This appears to be mostly fixed based on review of the resting i mages. There is also a medium-sized area of mild intensity reduced radiotracer uptake in the basal a nd mid anterior wall. This appears to be fully reversible based on review of the resting images. Le ft ventricular volumes are normal. Ejection fraction is normal and is estimated at 80%. There is no transient ischemic dilatation. No gated images available to assess for wall motion abnormalities. Impressions: 1. Large fixed defect in the inferior wall suggestive of infarction. 2. Medium size reversible defect in the anterior wall suggestive of ischemia. 3. Normal left ventricular systolic function. NM EXAM: Myocardial Perfusion REST/STRESS Imaging Protocol: Rest Tc-99m/Stress Tc-99m 1 day Resting Data Rest SPECT myocardial perfusion imaging was performed in supine position 60 minutes following the int ravenous injection of 10.1 mCi of Tc-99m Sestamibi. Time of rest injection: 1140 Date: 03/27/2024 Time of rest imagin Date: 03/27/2024 Administration Route: IV Administration Site: Right Hand Pharmacologic Stress Pharmacologic stress test was performed by injecting Regadenoson 0.4 mg IV push followed by the intra venous injection of 30.3 mCi of Tc-99m Sestamibi. Time of stress injection: 1315 Date: 03/27/2024 Time of stress imagin Date: 03/27/2024 Administration Route: IV Administration Site: Right Hand Gated Stress SPECT was performed 60 minutes after stress injection. The images were gated to evaluate regional wall motion and calculate left ventricular ejection fracti on. Stress only was performed in the Supine position. Nuclear Conclusion ECG Findings: negative for ischemia Clinical Findings: negative for ischemia Nuclear Findings: positive for ischemia Exercise Capacity: not assessed Left Ventricular Function: normal Risk Study: moderate Review of the myocardial perfusion images demonstrated a large area of severe intensity reduced radio tracer uptake in the inferior wall. This appears to be mostly fixed based on review of the resting i mages. There is also a medium-sized area of mild intensity reduced radiotracer uptake in the basal a nd mid anterior wall. This appears to be fully reversible based on review of the resting images. Le ft ventricular volumes are normal. Ejection fraction is normal and is estimated at 80%. There is no transient ischemic dilatation. No gated images available to assess for wall motion abnormalities. Impressions: 1. Large fixed defect in the inferior wall suggestive of infarction. 2. Medium size reversible defect in the anterior wall suggestive of ischemia. 3. Normal left ventricular systolic function.
--- NOTE | 2024-03-27 15:40 | DVH ---
Bilateral lower extremity venous duplex Clinical History: BLE edema L>R Comparison: None Technique: Duplex Doppler evaluation of the deep venous systems of both lower extremities from the common femora l veins to the popliteal veins including color Doppler and spectral/pulsed waveform analysis was perf ormed. Findings: RIGHT SIDE: The common femoral vein demonstrates appropriate compressibility and waveform variability. There is compressibility/patency of the great saphenous vein at the proximal thigh. The femoral vein demonstrates appropriate compressibility and waveform variability. The deep femoral vein demonstrates appropriate compressibility and waveform variability. The popliteal vein demonstrates appropriate compressibility and waveform variability. There is normal compressibility at the tibioperoneal trunk. LEFT SIDE: The common femoral vein demonstrates appropriate compressibility and waveform variability. There is compressibility/patency of the great saphenous vein at the proximal thigh. The femoral vein demonstrates appropriate compressibility and waveform variability. The deep femoral vein demonstrates appropriate compressibility and waveform variability. The popliteal vein demonstrates appropriate compressibility and waveform variability. There is normal compressibility at the tibioperoneal trunk. Left popliteal fossa avascular cystic structure measuring up to 4.3 cm, likely Cleaning's cyst. Impression: 1. No right or left femoropopliteal venous thrombosis. HS:Y
--- NOTE | 2024-03-27 19:09 | DVHPN2 ---
Subjective Still complaining of chest discomfort Reviewed: Care Plan, H&P, Labs, Medications, Previous Orders, Radiology, Other (Consultation) Changes from previous H/P or p: No Changes Respiratory: Sputum Objective Vitals Vital Signs Date Time Temp Pulse Resp B/P (MAP) Pulse Ox O2 Delivery O2 Flow Rate FiO2 03/27/24 18:47 93 Room Air 0.0 03/27/24 18:47 21 03/27/24 17:51 121/75 03/27/24 16:58 97.3 77 18 97.3 Intake/Output Intake and Output 03/27/24 07:00 Intake Total 1100 ml Balance 1100 ml Intake Oral 1100 ml # Voids 3 General Appearance: Alert, Oriented X3, Cooperative, No acute distress HEENT: Atraumatic Lungs: Clear to auscultation, Normal air movement Cardiovascular: Regular rate, Normal S1, Normal S2, No murmurs Abdomen: Normal bowel sounds, Soft, No tenderness Medications Current Medications Medications Dose Ordered Sig/Pilar Route Start Time Stop Time Status Last Admin Dose Admin Albuterol 2.5 mg Q6HP PRN NEB 03/24/24 22:00 03/26/24 09:29 2.5 MG Ipratropium [place] 0.5 mg Q6HP PRN NEB 03/24/24 22:00 03/26/24 09:29 0.5 MG Azithromycin 250 ml @ 125 mls/hr DAILY@2200 IV 03/25/24 22:00 03/26/24 22:08 125 MLS/HR Guaifenesin/ Dextromethorphan 10 ml Q4HP PRN PO 03/25/24 00:45 03/27/24 15:11 10 ML Acetaminophen 650 mg Q6HP PRN PO 03/25/24 10:00 Tramadol HCl 50 mg Q6HP PRN PO 03/25/24 10:00 Furosemide 20 mg BIDD IV 03/25/24 18:00 03/27/24 17:51 20 MG Enoxaparin Sodium 40 mg DAILY SC 03/26/24 10:00 03/27/24 10:07 40 MG Aspirin 81 mg DAILY PO 03/28/24 10:00 Metoprolol Succinate 25 mg DAILY PO 03/28/24 10:00 Atorvastatin Calcium 40 mg HS PO 03/27/24 22:00 Laboratory Results Laboratory Tests 03/24/24 12:00 03/27/24 04:38 Chemistry Test 03/27/24 04:38 Calcium Level 9.8 mg/dL (8.7-10.4) Magnesium Level 2.1 mg/dL (1.6-2.6) Lipid panel Test 03/27/24 04:38 Cholesterol Level 142 mg/dL (< 200) HDL Cholesterol 30 mg/dL (40-59) L Triglycerides Level 134 mg/dL (< 150) Cardiac Markers Test 03/27/24 04:38 B-Type Natriuretic Peptide 3.60 pg/mL (0-100) Urinalysis Test 03/25/24 09:53 Urine Color Yellow (Yellow) Urine Clarity Clear (Clear) Urine pH 6.0 (5.0-9.0) Urine Specific [place] 1.022 (1.001-1.035) Urine Protein Negative (Negative) Urine Ketones Negative (Negative) Urine Blood Negative /uL (Negative) Urine Nitrite Negative (Negative) Urine Bilirubin Negative (Negative) Urine Urobilinogen 2 mg/dL (Negative) H Urine Leukocyte Esterase Negative /uL (Negative) Urine RBC 1 /hpf (0 - 3) Urine WBC 1 /hpf (0 - 3) Urine Squamous Epithelial Cells None seen /hpf (<5) Urine Bacteria None seen /hpf (None Seen) Urine Mucus Few (None Seen) Urine Glucose Normal mg/dL (Normal) Labs and/or images reviewed: Labs reviewed by me, Image(s) reviewed by me Assessment/Plan Assessment/Plan Covering Dr. Martinez: #Chest discomfort; rule out ACS in the setting of significant family history of CAD and severe coronary artery calcification on chest CT; reviewed stress test results that showed reversible ischemia (details as below); continue aspirin and statin; cardiology is following; continue monitoring #Hypertensive heart disease with diastolic heart failure; continue antihypertensive medications as indicated; continue monitoring #Acute diastolic congestive heart failure with lower extremity edema/swelling; reviewed echocardiogram; continue IV diuresis; cardiology is following; continue monitoring #Metabolic syndrome with morbid obesity and prediabetes; counseled the patient about the importance of adopting healthy lifestyle with diet and exercise in order to lose weight; continue monitoring #Morbid obesity; details as above; continue monitoring #Prediabetes; newly diagnosed; hemoglobin A1c of 5.7%; details as above; continue monitoring #Acute bronchitis with possible broncho pneumonia; continue IV antibiotics; satting well on room air; continue nebulizers; continue monitoring #Lower extremity edema/swelling; most likely due to acute diastolic heart failure; DVTs ruled out; continue monitoring Stress test results from March 27, 2024: 1. Large fixed defect in the inferior wall suggestive of infarction. 2. Medium size reversible defect in the anterior wall suggestive of ischemia. 3. Normal left ventricular systolic function. Goals of care discussed for 20 minutes; DNR/DNI. Late Entry. This medical document was created using an electronic medical record system with computerized dictation system. Although this document has been carefully reviewed, there might still be some phonetic and typographical errors. These areas are purely typographical due to imperfections of the software programs, and do not reflect any compromise in the patient's medical care. Plan discussed with: Patient, Other (Nurse) Date of Service: Mar 27, 2024 Billing Provider: SAMARIA HALL MD Common Visit Codes: [id number] INP/OBS CARE(HIGH) Secondary Visit Codes: [id number] CARE PLAN 30 MINUTES (20 minutes) SAMARIA HALL MD Mar 27, 2024 19:09
[2024-03-27] MEDS: ATORVASTATIN 20 MG TAB PO SCH (22:32)
[2024-03-28] VITALS (10 sets, daily range): BP systolic 107–146; BP diastolic 74–97; PULSE 75–87; RESP 18–20; TEMP 97.5–98.3; O2SAT 90–100
[2024-03-28 07:52] LABS: Basophils # (auto) 0 10 ^3/uL (0-0.2); Basophils % (auto) 0.4 % (0.0-2.0); Eosinophils # (auto) 0.1 10 ^3/uL (0-0.8); Eosinophils % (auto) 1.3 % (0.0-7.0); Hematocrit 43.2 % (41.0-53.0); Hemoglobin 14.7 g/dL (13.5-17.5); Lymphocytes # (auto) 1.9 10 ^3/uL (0.4-5.4); Lymphocytes % (auto) 35.8 % (10.0-50.0); Mean Corpuscular Hemoglobin 29.4 pg (28.0-32.0); Mean Corpuscular Hgb Conc. 33.9 g/dL (32.0-36.0); Mean Corpuscular Volume 86.6 fL (80.0-100.0); Monocytes # (auto) 0.6 10 ^3/uL (0-1.3); Monocytes % (auto) 10.2 % (0.0-12.0); Neutrophils # (auto) 2.8 10 ^3/uL (1.6-8.6); Neutrophils % (auto) 52.3 % (37.0-80.0); Nucleated Red Blood Cells % 0.2 %; Platelet Count (auto) 222 10^3/uL (140-450); Red Blood Cells 4.99 10^6/uL (4.5-5.90); White Blood Cell 5.4 10^3/uL (4.4-10.8)
[2024-03-28 08:13] LABS: Albumin 4.5 g/dL (3.2-4.8); Alkaline Phosphatase 70 U/L (46-116); Anion Gap 7 (5-15); Aspartate Aminotransferase 34 U/L (13-40); BUN/Creatinine Ratio 13.4 (10.0-20.0); Blood Urea Nitrogen 15 mg/dL (9-23); Calcium 9.9 mg/dL (8.7-10.4); Carbon Dioxide 28 mmol/L (20-31); Chloride 104 mmol/L (98-107); Glucose 102 mg/dL (74-106); Potassium 3.6 mmol/L (3.5-5.1); Sodium 139 mmol/L (136-145)
[2024-03-28 08:14] LABS: Bilirubin, Total 0.6 mg/dL (0.2-1.0); Total Protein 7.1 g/dL (5.7-8.2)
[2024-03-28 08:43] LABS: Alanine Aminotransferase 48 U/L (7-40)
[2024-03-28] MEDS: ASPirin 81 mg TAB PO SCH (09:40)
[2024-03-28] MEDS: METOPROLOL SUCCINATE XL 50 MG TAB PO SCH (09:42)
--- NOTE | 2024-03-28 12:36 | DVHPN2 ---
Consult Progress Note Subjective Other Systems: Patient denies any cardiac symptoms at time of assessment. Objective vital signs Vital Sign Date Time Temp Pulse Resp B/P (MAP) Pulse Ox O2 Delivery O2 Flow Rate FiO2 03/28/24 09:42 86 146/77 03/28/24 09:17 96 Room Air* 0 21 03/28/24 08:16 97.6 18 97.6 Total Intake and Output 03/27/24 03/27/24 03/28/24 15:00 23:00 07:00 Intake Total 920 ml 300 ml Output Total 1000 ml Balance -80 ml 300 ml medications Current Medications Medications Dose Ordered Sig/Pilar Route Start Time Stop Time Status Last Admin Dose Admin Albuterol 2.5 mg Q6HP PRN NEB 03/24/24 22:00 03/26/24 09:29 2.5 MG Ipratropium [place] 0.5 mg Q6HP PRN NEB 03/24/24 22:00 03/26/24 09:29 0.5 MG Azithromycin 250 ml @ 125 mls/hr DAILY@2200 IV 03/25/24 22:00 03/27/24 22:31 125 MLS/HR Guaifenesin/ Dextromethorphan 10 ml Q4HP PRN PO 03/25/24 00:45 03/28/24 09:43 10 ML Acetaminophen 650 mg Q6HP PRN PO 03/25/24 10:00 Tramadol HCl 50 mg Q6HP PRN PO 03/25/24 10:00 Furosemide 20 mg BIDD IV 03/25/24 18:00 03/28/24 06:00 20 MG Enoxaparin Sodium 40 mg DAILY SC 03/26/24 10:00 03/28/24 09:43 40 MG Aspirin 81 mg DAILY PO 03/28/24 10:00 03/28/24 09:40 81 MG Metoprolol Succinate 25 mg DAILY PO 03/28/24 10:00 03/28/24 09:42 25 MG Atorvastatin Calcium 40 mg HS PO 03/27/24 22:00 03/27/24 22:32 40 MG Examination: GENERAL:Normal, LUNGS:Normal, CVS:Normal, NEURO:Normal laboratory and microbiology Laboratory Tests 03/28/24 07:25 Test 03/28/24 07:25 Range/Units Serum Glucose 102 74-106 mg/dL Problem List/Assessment/Plan Problem List/Assessment/Plan Rule out coronary artery disease Pertinent family history for CAD Acute bronchitis Pre-diabetes, newly diagnosed Hypertension Obesity Plan/Recommendation (Dr. Hirsch) Patient seen and examined at bedside with . Transthoracic echocardiogram reveals EF 65%. The patient underwent a Cardiolite stress test in which nuclear findings were positive for ischemia. Findings of stress test include a large fixed defect in the inferior wall suggestive of infarction as well as a medium size reversible defect in the anterior wall suggestive of ischemia. Given these findings, we will recommend for the patient to undergo a coronary angiogram with left heart catheterization. The procedure was discussed with the patient full detail including risks and benefits. Risks include but are not limited to bleeding, contrast induced nephropathy, stroke, and even . The patient understands and is agreeable to undergo the procedure. We will schedule the patient at first availability on 03/30/24. In the meantime, the patient will be upgraded to telemetry for closer cardiac monitoring. Continue with aspirin, lipid-lowering agent, and beta-devin. Thank you for allowing us to care for this patient. Please call with any questions or concerns. This medical document was created using an electronic medical record system with voice recognition software and computerized dictation system. Although this document has been carefully reviewed, there might still be some phonetic and typographical errors. Occasional wrong-word or ``sound-alike substitutions may have occurred due to the inherent limitations of voice recognition software. These areas are purely typographical due to imperfections of the software programs and do not reflect any compromise in the patient's medical care. Please read the chart carefully and recognize, using context, where these substitutions have occurred. Plan discussed with: Patient Date of Service: Mar 28, 2024 Billing Provider: VINNIE BARCENAS Common Visit Codes: [id number] INP/OBS CARE(HIGH) VINNIE BARCENAS Mar 28, 2024 12:36
--- NOTE | 2024-03-28 18:55 | DVHPN2 ---
Subjective Still complaining of chest discomfort Reviewed: Care Plan, H&P, Labs, Medications, Previous Orders, Radiology, Other (Consultation) Changes from previous H/P or p: No Changes Objective Vitals Vital Signs Date Time Temp Pulse Resp B/P (MAP) Pulse Ox O2 Delivery O2 Flow Rate FiO2 03/28/24 17:54 123/97 03/28/24 16:50 97.5 82 18 93 97.5 03/28/24 10:00 Room Air* 0 21 Intake/Output Intake and Output 03/28/24 07:00 Intake Total 1220 ml Output Total 1000 ml Balance 220 ml Intake Oral 1220 ml Output Urine Total 1000 ml General Appearance: Alert, Oriented X3, Cooperative, No acute distress HEENT: Atraumatic Lungs: Clear to auscultation, Normal air movement Cardiovascular: Regular rate, Normal S1, Normal S2, No murmurs Abdomen: Normal bowel sounds, Soft, No tenderness Medications Current Medications Medications Dose Ordered Sig/Pilar Route Start Time Stop Time Status Last Admin Dose Admin Albuterol 2.5 mg Q6HP PRN NEB 03/24/24 22:00 03/26/24 09:29 2.5 MG Ipratropium [place] 0.5 mg Q6HP PRN NEB 03/24/24 22:00 03/26/24 09:29 0.5 MG Azithromycin 250 ml @ 125 mls/hr DAILY@2200 IV 03/25/24 22:00 03/27/24 22:31 125 MLS/HR Guaifenesin/ Dextromethorphan 10 ml Q4HP PRN PO 03/25/24 00:45 03/28/24 15:42 10 ML Acetaminophen 650 mg Q6HP PRN PO 03/25/24 10:00 Tramadol HCl 50 mg Q6HP PRN PO 03/25/24 10:00 Furosemide 20 mg BIDD IV 03/25/24 18:00 03/28/24 17:54 20 MG Enoxaparin Sodium 40 mg DAILY SC 03/26/24 10:00 03/28/24 09:43 40 MG Aspirin 81 mg DAILY PO 03/28/24 10:00 03/28/24 09:40 81 MG Metoprolol Succinate 25 mg DAILY PO 03/28/24 10:00 03/28/24 09:42 25 MG Atorvastatin Calcium 40 mg HS PO 03/27/24 22:00 03/27/24 22:32 40 MG Laboratory Results Laboratory Tests 03/28/24 07:25 Chemistry Test 03/28/24 07:25 Albumin 4.5 g/dL (3.2-4.8) Calcium Level 9.9 mg/dL (8.7-10.4) Total Protein 7.1 g/dL (5.7-8.2) LFT Test 03/28/24 07:25 Alanine Aminotransferase (ALT) 48 U/L (7-40) H Alkaline Phosphatase 70 U/L (46-116) Aspartate Amino Transferase (AST) 34 U/L (13-40) Total Bilirubin 0.6 mg/dL (0.2-1.0) Urinalysis Test 03/25/24 09:53 Urine Color Yellow (Yellow) Urine Clarity Clear (Clear) Urine pH 6.0 (5.0-9.0) Urine Specific [place] 1.022 (1.001-1.035) Urine Protein Negative (Negative) Urine Ketones Negative (Negative) Urine Blood Negative /uL (Negative) Urine Nitrite Negative (Negative) Urine Bilirubin Negative (Negative) Urine Urobilinogen 2 mg/dL (Negative) H Urine Leukocyte Esterase Negative /uL (Negative) Urine RBC 1 /hpf (0 - 3) Urine WBC 1 /hpf (0 - 3) Urine Squamous Epithelial Cells None seen /hpf (<5) Urine Bacteria None seen /hpf (None Seen) Urine Mucus Few (None Seen) Urine Glucose Normal mg/dL (Normal) Labs and/or images reviewed: Labs reviewed by me, Image(s) reviewed by me Assessment/Plan Assessment/Plan Covering Dr. Martinez: #Chest discomfort; rule out ACS in the setting of significant family history of CAD and severe coronary artery calcification on chest CT; reviewed stress test results that showed reversible ischemia (details as below); continue aspirin and statin; cardiology is following: Heart catheterization planned for Saturday March 30, 2024; continue monitoring #Hypertensive heart disease with diastolic heart failure; continue antihypertensive medications as indicated; continue monitoring #Acute diastolic congestive heart failure with lower extremity edema/swelling; reviewed echocardiogram; continue IV diuresis; cardiology is following; continue monitoring #Metabolic syndrome with morbid obesity and prediabetes; counseled the patient about the importance of adopting healthy lifestyle with diet and exercise in order to lose weight; continue monitoring #Morbid obesity; details as above; continue monitoring #Prediabetes; newly diagnosed; hemoglobin A1c of 5.7%; details as above; continue monitoring #Acute bronchitis with possible broncho pneumonia; continue IV antibiotics; satting well on room air; continue nebulizers; continue monitoring #Lower extremity edema/swelling; most likely due to acute diastolic heart failure; DVTs ruled out; continue monitoring Stress test results from March 27, 2024: 1. Large fixed defect in the inferior wall suggestive of infarction. 2. Medium size reversible defect in the anterior wall suggestive of ischemia. 3. Normal left ventricular systolic function. Late Entry. This medical document was created using an electronic medical record system with computerized dictation system. Although this document has been carefully reviewed, there might still be some phonetic and typographical errors. These areas are purely typographical due to imperfections of the software programs, and do not reflect any compromise in the patient's medical care. Plan discussed with: Patient, Other (Nurse) My Orders Orders - SAMARIA HALL MD Procedure Category Date Status Time Full Code CELI 03/28/24 In Process 12:43 Date of Service: Mar 28, 2024 Billing Provider: SAMARIA HALL MD Common Visit Codes: [id number] INP/OBS CARE(HIGH) SAMARIA HALL MD Mar 28, 2024 18:55
[2024-03-29] VITALS (13 sets, daily range): BP systolic 112–145; BP diastolic 69–89; PULSE 79–97; RESP 18; TEMP 97–98.4; O2SAT 92–100
[2024-03-29 05:38] LABS: Basophils # (auto) 0 10 ^3/uL (0-0.2); Basophils % (auto) 0.4 % (0.0-2.0); Eosinophils # (auto) 0.1 10 ^3/uL (0-0.8); Hematocrit 41.1 % (41.0-53.0); Hemoglobin 13.8 g/dL (13.5-17.5); Lymphocytes % (auto) 34.8 % (10.0-50.0); Mean Corpuscular Hemoglobin 29.1 pg (28.0-32.0); Mean Corpuscular Hgb Conc. 33.6 g/dL (32.0-36.0); Mean Corpuscular Volume 86.6 fL (80.0-100.0); Monocytes # (auto) 0.6 10 ^3/uL (0-1.3); Monocytes % (auto) 11.4 % (0.0-12.0); Neutrophils % (auto) 52.4 % (37.0-80.0); Platelet Count (auto) 189 10^3/uL (140-450); Red Blood Cells 4.75 10^6/uL (4.5-5.90); Red Cell Distribution Width 14.1 % (11.8-14.3); White Blood Cell 5.7 10^3/uL (4.4-10.8)
[2024-03-29 05:58] LABS: Anion Gap 7 (5-15); Carbon Dioxide 30 mmol/L (20-31); Chloride 102 mmol/L (98-107); Potassium 3.6 mmol/L (3.5-5.1); Sodium 139 mmol/L (136-145)
[2024-03-29 06:00] LABS: Calcium 9.9 mg/dL (8.7-10.4)
[2024-03-29 06:04] LABS: BUN/Creatinine Ratio 15.7 (10.0-20.0); Blood Urea Nitrogen 19 mg/dL (9-23); Glucose 98 mg/dL (74-106)
--- NOTE | 2024-03-29 15:05 | DVHPN2 ---
Consult Progress Note Date Seen: Mar 29, 2024 Subjective Review of Systems: CVS:Normal, RESPIRATORY:Normal, NEURO:Normal Objective vital signs Vital Sign Date Time Temp Pulse Resp B/P (MAP) Pulse Ox O2 Delivery O2 Flow Rate FiO2 03/29/24 13:00 97.6 93 18 145/89 (107) 92 97.6 03/29/24 10:00 0.0 03/29/24 10:00 Room Air* 21 Total Intake and Output 03/28/24 03/28/24 03/29/24 15:00 23:00 07:00 Intake Total 1200 ml 1150 ml Output Total 1800 ml Balance -600 ml 1150 ml medications Current Medications Medications Dose Ordered Sig/Pilar Route Start Time Stop Time Status Last Admin Dose Admin Albuterol 2.5 mg Q6HP PRN NEB 03/24/24 22:00 03/29/24 08:09 2.5 MG Ipratropium [place] 0.5 mg Q6HP PRN NEB 03/24/24 22:00 03/29/24 08:09 0.5 MG Azithromycin 250 ml @ 125 mls/hr DAILY@2200 IV 03/25/24 22:00 03/28/24 22:35 125 MLS/HR Guaifenesin/ Dextromethorphan 10 ml Q4HP PRN PO 03/25/24 00:45 03/28/24 22:35 10 ML Acetaminophen 650 mg Q6HP PRN PO 03/25/24 10:00 Tramadol HCl 50 mg Q6HP PRN PO 03/25/24 10:00 Furosemide 20 mg BIDD IV 03/25/24 18:00 03/29/24 05:42 20 MG Enoxaparin Sodium 40 mg DAILY SC 03/26/24 10:00 03/28/24 09:43 40 MG Aspirin 81 mg DAILY PO 03/28/24 10:00 03/29/24 09:44 81 MG Metoprolol Succinate 25 mg DAILY PO 03/28/24 10:00 03/29/24 09:45 25 MG Atorvastatin Calcium 40 mg HS PO 03/27/24 22:00 03/28/24 22:34 40 MG Examination: LUNGS:Normal, CVS:Normal, NEURO:Normal laboratory and microbiology Laboratory Tests 03/29/24 04:54 Test 03/29/24 04:54 Range/Units Serum Glucose 98 74-106 mg/dL Problem List/Assessment/Plan Problem List/Assessment/Plan Positive cardiolite stress test rule out coronary artery disease Pertinent family history for CAD Acute bronchitis Pre-diabetes, newly diagnosed Hypertension Obesity Plan/Recommendation (Dr. Alcantara) Patient seen and examined at bedside with . Transthoracic echocardiogram revealed EF 65%. The patient underwent a Cardiolite stress test in which nuclear findings were positive for ischemia. Findings of stress test include a large fixed defect in the inferior wall suggestive of infarction as well as a medium size reversible defect in the anterior wall suggestive of ischemia. Given these findings, the patient has been scheduled for a coronary angiogram with left heart catheterization on 03/30/2024. The procedure was discussed with the patient full detail including risks and benefits. Risks include but are not limited to bleeding, contrast induced nephropathy, stroke, and even . The patient understands and is agreeable to undergo the procedure. In the meantime, continue aspirin, lipid-lowering agent, and beta- devin. Monitor ECG changes and notify. Chest pain protocol. Thank you for allowing us to care for this patient. Please call with any questions or concerns. This medical document was created using an electronic medical record system with voice recognition software and computerized dictation system. Although this document has been carefully reviewed, there might still be some phonetic and typographical errors. Occasional wrong-word or ``sound-alike substitutions may have occurred due to the inherent limitations of voice recognition software. These areas are purely typographical due to imperfections of the software programs and do not reflect any compromise in the patient's medical care. Please read the chart carefully and recognize, using context, where these substitutions have occurred. Plan discussed with: Patient, Other Date of Service: Mar 29, 2024 Billing Provider: KRISTIAN ALCANTARA MD Cardiology Common Codes: [id number] [facility] Mar 29, 2024 15:05
--- NOTE | 2024-03-29 16:34 | DVHPN2 ---
Subjective Still complaining of chest discomfort Reviewed: Care Plan, H&P, Labs, Medications, Previous Orders, Radiology, Other (Consultation) Changes from previous H/P or p: No Changes Objective Vitals Vital Signs Date Time Temp Pulse Resp B/P (MAP) Pulse Ox O2 Delivery O2 Flow Rate FiO2 03/29/24 13:00 97.6 93 18 145/89 (107) 92 97.6 03/29/24 10:00 0.0 03/29/24 10:00 Room Air* 21 Intake/Output Intake and Output 03/29/24 07:00 Intake Total 2350 ml Output Total 1800 ml Balance 550 ml Intake Oral 2100 ml IV Total 250 ml Output Urine Total 1800 ml # Voids 1 General Appearance: Alert, Oriented X3, Cooperative, No acute distress HEENT: Atraumatic Lungs: Clear to auscultation, Normal air movement Cardiovascular: Regular rate, Normal S1, Normal S2, No murmurs Abdomen: Normal bowel sounds, Soft, No tenderness Medications Current Medications Medications Dose Ordered Sig/Pilar Route Start Time Stop Time Status Last Admin Dose Admin Albuterol 2.5 mg Q6HP PRN NEB 03/24/24 22:00 03/29/24 08:09 2.5 MG Ipratropium [place] 0.5 mg Q6HP PRN NEB 03/24/24 22:00 03/29/24 08:09 0.5 MG Azithromycin 250 ml @ 125 mls/hr DAILY@2200 IV 03/25/24 22:00 03/28/24 22:35 125 MLS/HR Guaifenesin/ Dextromethorphan 10 ml Q4HP PRN PO 03/25/24 00:45 03/28/24 22:35 10 ML Acetaminophen 650 mg Q6HP PRN PO 03/25/24 10:00 Tramadol HCl 50 mg Q6HP PRN PO 03/25/24 10:00 Furosemide 20 mg BIDD IV 03/25/24 18:00 03/29/24 05:42 20 MG Enoxaparin Sodium 40 mg DAILY SC 03/26/24 10:00 03/28/24 09:43 40 MG Aspirin 81 mg DAILY PO 03/28/24 10:00 03/29/24 09:44 81 MG Metoprolol Succinate 25 mg DAILY PO 03/28/24 10:00 03/29/24 09:45 25 MG Atorvastatin Calcium 40 mg HS PO 03/27/24 22:00 03/28/24 22:34 40 MG Laboratory Results Laboratory Tests 03/29/24 04:54 Chemistry Test 03/29/24 04:54 Calcium Level 9.9 mg/dL (8.7-10.4) Urinalysis Test 03/25/24 09:53 Urine Color Yellow (Yellow) Urine Clarity Clear (Clear) Urine pH 6.0 (5.0-9.0) Urine Specific [place] 1.022 (1.001-1.035) Urine Protein Negative (Negative) Urine Ketones Negative (Negative) Urine Blood Negative /uL (Negative) Urine Nitrite Negative (Negative) Urine Bilirubin Negative (Negative) Urine Urobilinogen 2 mg/dL (Negative) H Urine Leukocyte Esterase Negative /uL (Negative) Urine RBC 1 /hpf (0 - 3) Urine WBC 1 /hpf (0 - 3) Urine Squamous Epithelial Cells None seen /hpf (<5) Urine Bacteria None seen /hpf (None Seen) Urine Mucus Few (None Seen) Urine Glucose Normal mg/dL (Normal) Labs and/or images reviewed: Labs reviewed by me, Image(s) reviewed by me Assessment/Plan Assessment/Plan Covering Dr. Martinez: #Chest discomfort; rule out ACS in the setting of significant family history of CAD and severe coronary artery calcification on chest CT; reviewed stress test results that showed reversible ischemia (details as below); continue aspirin and statin; cardiology is following: Heart catheterization planned for Saturday March 30, 2024; to keep NPO after midnight continue monitoring #Hypertensive heart disease with diastolic heart failure; continue antihypertensive medications as indicated; continue monitoring #Acute diastolic congestive heart failure with lower extremity edema/swelling; reviewed echocardiogram; continue IV diuresis; cardiology is following; continue monitoring #Metabolic syndrome with morbid obesity and prediabetes; counseled the patient about the importance of adopting healthy lifestyle with diet and exercise in order to lose weight; continue monitoring #Morbid obesity; details as above; continue monitoring #Prediabetes; newly diagnosed; hemoglobin A1c of 5.7%; details as above; continue monitoring #Acute bronchitis with possible broncho pneumonia; continue IV antibiotics; satting well on room air; continue nebulizers; continue monitoring #Lower extremity edema/swelling; most likely due to acute diastolic heart failure; DVTs ruled out; continue monitoring Stress test results from March 27, 2024: 1. Large fixed defect in the inferior wall suggestive of infarction. 2. Medium size reversible defect in the anterior wall suggestive of ischemia. 3. Normal left ventricular systolic function. Late Entry. This medical document was created using an electronic medical record system with computerized dictation system. Although this document has been carefully reviewed, there might still be some phonetic and typographical errors. These areas are purely typographical due to imperfections of the software programs, and do not reflect any compromise in the patient's medical care. Plan discussed with: Patient, Other (Nurse) My Orders Orders - SAMARIA HALL MD Procedure Category Date Status Time Complete Blood Count LAB 03/30/24 Verified 05:00 Complete Blood Count LAB 03/31/24 Verified 05:00 Complete Blood Count LAB 04/01/24 Verified 05:00 Complete Blood Count LAB 04/02/24 Verified 05:00 Comprehensive LAB 03/30/24 Verified Metabolic Panel 04:00 Date of Service: Mar 29, 2024 Billing Provider: SAMARIA HALL MD Common Visit Codes: [id number] INP/OBS CARE(HIGH) SAMARIA HALL MD Mar 29, 2024 16:34
[2024-03-30] VITALS (11 sets, daily range): BP systolic 111–142; BP diastolic 66–82; PULSE 71–85; RESP 12–20; TEMP 97.8–98.7; O2SAT 91–99
[2024-03-30 06:24] LABS: INR 1.03 (0.9-1.15); Partial Thromboplastin Time 27.1 SEC (24.5-34.5); Prothrombin Time 10.9 sec (9.3-11.8)
[2024-03-30 06:37] LABS: Alanine Aminotransferase 44 U/L (7-40); Albumin 4.3 g/dL (3.2-4.8); Alkaline Phosphatase 70 U/L (46-116); Anion Gap 7 (5-15); Aspartate Aminotransferase 24 U/L (13-40); Bilirubin, Total 0.7 mg/dL (0.2-1.0); Calcium 9.8 mg/dL (8.7-10.4); Carbon Dioxide 31 mmol/L (20-31); Chloride 103 mmol/L (98-107); Glucose 91 mg/dL (74-106); Sodium 141 mmol/L (136-145); Total Protein 6.5 g/dL (5.7-8.2)
[2024-03-30 06:58] LABS: Basophils # (auto) 0 10 ^3/uL (0-0.2); Basophils % (auto) 0.4 % (0.0-2.0); Eosinophils # (auto) 0 10 ^3/uL (0-0.8); Eosinophils % (auto) 0.7 % (0.0-7.0); Hematocrit 41.7 % (41.0-53.0); Hemoglobin 14.2 g/dL (13.5-17.5); Lymphocytes % (auto) 32.5 % (10.0-50.0); Mean Corpuscular Hemoglobin 29.6 pg (28.0-32.0); Mean Corpuscular Hgb Conc. 34.1 g/dL (32.0-36.0); Mean Corpuscular Volume 86.6 fL (80.0-100.0); Monocytes # (auto) 0.6 10 ^3/uL (0-1.3); Monocytes % (auto) 9.9 % (0.0-12.0); Neutrophils # (auto) 3.4 10 ^3/uL (1.6-8.6); Neutrophils % (auto) 56.5 % (37.0-80.0); Nucleated Red Blood Cells % 0.4 %; Platelet Count (auto) 209 10^3/uL (140-450); Red Blood Cells 4.81 10^6/uL (4.5-5.90); Red Cell Distribution Width 13.9 % (11.8-14.3); White Blood Cell 6.1 10^3/uL (4.4-10.8)
[2024-03-30 07:02] LABS: BUN/Creatinine Ratio 18.3 (10.0-20.0); Blood Urea Nitrogen 23 mg/dL (9-23)
[2024-03-30] MEDS: MIDAZOLAM HCL 2MG/2ML 2ml VIAL (1mg/ml) ONE (12:55)
[2024-03-30] MEDS: LIDOCAINE 2%HCL (LOCAL ANESTH.) INJ 20ML MDV ONE (12:55)
[2024-03-30] MEDS: fentaNYL CITRATE 100 MCG/2 ML VL ONE (12:55)
[2024-03-30] MEDS: VERAPAMIL 2.5MG/ML INJ 2ML VIAL IV ONE (12:56)
--- NOTE | 2024-03-30 14:00 | DVHOP2 ---
Operative Report - 2 Report Details Date: 03/30/24 Preop Diagnosis: Patient admitted with acute bronchitis. CT chest showed significant coronary artery calcifications. Nuclear stress test was reported to be abnormal. Patient does have strong family history of premature coronary artery disease. Postop Diagnosis: 1. Mild to moderate calcified coronary artery disease involving the LAD. 2. Normal LVEDP. Surgeon: Isaura Valdez MD Anesthesiologist: Patient was deemed an adequate candidate for conscious sedation. Versed and fentanyl were given during the procedure. I was available for continued [id number] monitoring during the procedure. 2 mg of Versed and 50 mcg of fentanyl were given. Anesthesia: Local Consent: The patient was informed of the risks and benefits of the procedure. These include but are not limited to complications of anesthesia, postoperative infection, incomplete relief of symptoms, recurrence of symptoms, damage to blood vessels, nerves and tendons, deep venous thrombosis, pulmonary embolism and possible need for repeat surgery in the future. Estimated Blood Loss: 10 cc Name of Procedure Performed 1. Selective coronary angiography. 2. Left heart catheterization. 3. Ultrasound-guided vascular access. 4. Moderated sedation for 25 minutes. Procedure Details Procedure Details: The patient was brought to the laboratory asst in a stable condition. His pulses in the right radial artery was week. We tried to get access in the right radial artery under ultrasound guidance however advancing the wire was unsuccessful. We switched to right groin access. He had normal pulses in the right groin area. Access in the right common femoral artery was obtained using ultrasound guidance. An11 cm sheath was placed in the right common femoral artery. Left coronary angiography was performed using a 6 [place], JL4 0 catheter. Right coronary angiography was performed using a 6 [place], 3DRC catheter. The left heart catheterization was performed using a pigtail catheter. At the completion of the procedure, hemostasis in the right common femoral artery was obtained using an Angio-Seal device which was successful. Findings Hemodynamics: The aortic pressure was 110/70 mm Hg, LVEDP was 9 mm Hg. There is no significant gradient on LV to aorta pullback. Coronary angiography: The left main coronary artery is a normal caliber bifurcating vessel, it is free of any significant stenosis. The left anterior descending artery is a medium-sized vessel that extends and wraps around the apex. It has diffuse moderately calcified [id number]-foqxmodg stenosis from its ostial to mid part. The diagonal branches are with no significant stenosis. The left circumflex artery is a large and dominant vessel. It is free of any significant stenosis. The obtuse marginal branches, left posterolateral branches, and LPDA are without significant stenosis. The right coronary artery is a moderate-sized nondominant vessel. It is free of any significant stenosis. Impressions: Kuwi-nz-jhxjsjvy calcified disease in the ostial/proximal to mid LAD. Otherwise, no significant coronary artery disease. Normal left ventricular end-diastolic pressure. Plan: Aggressive medical therapy and risk factors modifications. Patient needs to be on a statin therapy with goal LDL of less than 70. Findings were discussed with the patient today. Condition Stable Disposition Still a Patient ISAURA VALDEZ MD Mar 30, 2024 14:00
--- NOTE | 2024-03-30 14:00 | DVHPN2 ---
Subjective Decreasing chest discomfort; ready for cardiac catheterization Reviewed: Care Plan, H&P, Labs, Medications, Previous Orders, Radiology, Other (Consultation) Changes from previous H/P or p: Changes Objective Vitals Vital Signs Date Time Temp Pulse Resp B/P (MAP) Pulse Ox O2 Delivery O2 Flow Rate FiO2 03/30/24 13:30 97.9 79 18 116/73 (87) 94 97.9 03/30/24 10:00 Room Air 0.0 03/30/24 10:00 21 Intake/Output Intake and Output 03/30/24 07:00 Intake Total 2550 ml Output Total 1500 ml Balance 1050 ml Intake Oral 2300 ml IV Total 250 ml Output Urine Total 1500 ml # Voids 1 General Appearance: Alert, Oriented X3, Cooperative, No acute distress HEENT: Atraumatic Lungs: Clear to auscultation, Normal air movement Cardiovascular: Regular rate, Normal S1, Normal S2, No murmurs Abdomen: Normal bowel sounds, Soft, No tenderness Neuro: Normal speech, Cranial nerves 3-12 NL Psych/Mental Status: Mental status NL, Mood NL Medications Current Medications Medications Dose Ordered Sig/Pilar Route Start Time Stop Time Status Last Admin Dose Admin Albuterol 2.5 mg Q6HP PRN NEB 03/24/24 22:00 03/29/24 08:09 2.5 MG Ipratropium [place] 0.5 mg Q6HP PRN NEB 03/24/24 22:00 03/29/24 08:09 0.5 MG Azithromycin 250 ml @ 125 mls/hr DAILY@2200 IV 03/25/24 22:00 03/29/24 20:59 125 MLS/HR Guaifenesin/ Dextromethorphan 10 ml Q4HP PRN PO 03/25/24 00:45 03/28/24 22:35 10 ML Acetaminophen 650 mg Q6HP PRN PO 03/25/24 10:00 Tramadol HCl 50 mg Q6HP PRN PO 03/25/24 10:00 Enoxaparin Sodium 40 mg DAILY SC 03/26/24 10:00 03/28/24 09:43 40 MG Aspirin 81 mg DAILY PO 03/28/24 10:00 03/29/24 09:44 81 MG Metoprolol Succinate 25 mg DAILY PO 03/28/24 10:00 03/30/24 10:02 25 MG Atorvastatin Calcium 40 mg HS PO 03/27/24 22:00 03/29/24 20:59 40 MG Laboratory Results Laboratory Tests 03/30/24 04:40 Chemistry Test 03/30/24 04:40 Albumin 4.3 g/dL (3.2-4.8) Calcium Level 9.8 mg/dL (8.7-10.4) Total Protein 6.5 g/dL (5.7-8.2) Coagulation Test 03/30/24 04:40 Prothrombin Time 10.9 sec (9.3-11.8) Prothrombin Time INR 1.03 (0.9-1.15) Activated Partial Thromboplast Time 27.1 SEC (24.5-34.5) LFT Test 03/30/24 04:40 Alanine Aminotransferase (ALT) 44 U/L (7-40) H Alkaline Phosphatase 70 U/L (46-116) Aspartate Amino Transferase (AST) 24 U/L (13-40) Total Bilirubin 0.7 mg/dL (0.2-1.0) Urinalysis Test 03/25/24 09:53 Urine Color Yellow (Yellow) Urine Clarity Clear (Clear) Urine pH 6.0 (5.0-9.0) Urine Specific [place] 1.022 (1.001-1.035) Urine Protein Negative (Negative) Urine Ketones Negative (Negative) Urine Blood Negative /uL (Negative) Urine Nitrite Negative (Negative) Urine Bilirubin Negative (Negative) Urine Urobilinogen 2 mg/dL (Negative) H Urine Leukocyte Esterase Negative /uL (Negative) Urine RBC 1 /hpf (0 - 3) Urine WBC 1 /hpf (0 - 3) Urine Squamous Epithelial Cells None seen /hpf (<5) Urine Bacteria None seen /hpf (None Seen) Urine Mucus Few (None Seen) Urine Glucose Normal mg/dL (Normal) Labs and/or images reviewed: Labs reviewed by me, Image(s) reviewed by me Assessment/Plan Assessment/Plan Covering Dr. Martinez: #Chest discomfort; rule out ACS in the setting of significant family history of CAD and severe coronary artery calcification on chest CT; reviewed stress test results that showed reversible ischemia (details as below); continue aspirin and statin; cardiology is following: Heart catheterization planned for today; continue monitoring #Hypertensive heart disease with diastolic heart failure; continue antihypertensive medications as indicated; continue monitoring #Acute diastolic congestive heart failure with lower extremity edema/swelling; reviewed echocardiogram; continue IV diuresis; ordered repeat chest x-ray; cardiology is following; continue monitoring #Metabolic syndrome with morbid obesity and prediabetes; counseled the patient about the importance of adopting healthy lifestyle with diet and exercise in order to lose weight; continue monitoring #Morbid obesity; details as above; continue monitoring #Prediabetes; newly diagnosed; hemoglobin A1c of 5.7%; details as above; continue monitoring #Acute bronchitis with possible broncho pneumonia; continue IV antibiotics; satting well on room air; continue nebulizers; continue monitoring #Lower extremity edema/swelling; most likely due to acute diastolic heart failure; DVTs ruled out; continue monitoring Stress test results from March 27, 2024: 1. Large fixed defect in the inferior wall suggestive of infarction. 2. Medium size reversible defect in the anterior wall suggestive of ischemia. 3. Normal left ventricular systolic function. Late Entry. This medical document was created using an electronic medical record system with computerized dictation system. Although this document has been carefully reviewed, there might still be some phonetic and typographical errors. These areas are purely typographical due to imperfections of the software programs, and do not reflect any compromise in the patient's medical care. Plan discussed with: Patient, Spouse, Daughter, Other (Nurse) Date of Service: Mar 30, 2024 Billing Provider: SAMARIA HALL MD Common Visit Codes: [id number] INP/OBS CARE(HIGH) SAMARIA HALL MD Mar 30, 2024 14:00
--- NOTE | 2024-03-30 15:46 | DVH ---
CHEST RADIOGRAPH Indication: F/U on chest discomfort/cough. Thank You! Technique: Single frontal view of the chest was obtained COMPARISON: XY CHEST PORTABLE on DOS: 03/24/24 FINDINGS: Lines and Tubes: None Lungs: Clear Pleura: No effusion. No pneumothorax. Cardiomediastinal contours: Unremarkable Bones: Unremarkable IMPRESSION: No acute disease.
[2024-03-30] MEDS ORDERED: ASPI-325 PO (15:58)
[2024-03-30] MEDS ORDERED: ATOR40TA52 PO (15:58)
[2024-03-30] MEDS ORDERED: METO-289 PO (15:58)
--- NOTE | 2024-03-30 16:03 | DVHDS2 ---
Discharge Summary Date of Admission Mar 24, 2024 at 20:53 Date of Discharge: Mar 30, 2024 Wounds: Right groin cardiac catheterization site; no bleeding/swelling/hematoma/discharge/tenderness Labs/Diagnostic Data: Laboratory Results Test 03/30/24 04:40 03/27/24 04:38 03/26/24 07:14 03/25/24 10:30 White Blood Count 6.1 10^3/uL (4.4-10.8) Red Blood Count 4.81 10^6/uL (4.5-5.90) Hemoglobin 14.2 g/dL (13.5-17.5) Hematocrit 41.7 % (41.0-53.0) Mean Corpuscular Volume 86.6 fL (80.0-100.0) Mean Corpuscular Hemoglobin 29.6 pg (28.0-32.0) Mean Corpuscular Hemoglobin Concent 34.1 g/dL (32.0-36.0) Red Cell Distribution Width 13.9 % (11.8-14.3) Platelet Count 209 10^3/uL (140-450) Mean Platelet Volume 8.5 fL (6.9-10.8) Neutrophils (%) (Auto) 56.5 % (37.0-80.0) Lymphocytes (%) (Auto) 32.5 % (10.0-50.0) Monocytes (%) (Auto) 9.9 % (0.0-12.0) Eosinophils (%) (Auto) 0.7 % (0.0-7.0) Basophils (%) (Auto) 0.4 % (0.0-2.0) Neutrophils # (Auto) 3.4 10 ^3/uL (1.6-8.6) Lymphocytes # (Auto) 2.0 10 ^3/uL (0.4-5.4) Monocytes # (Auto) 0.6 10 ^3/uL (0-1.3) Eosinophils # (Auto) 0 10 ^3/uL (0-0.8) Basophils # (Auto) 0 10 ^3/uL (0-0.2) Nucleated Red Blood Cells 0.4 % Prothrombin Time 10.9 sec (9.3-11.8) Prothrombin Time INR 1.03 (0.9-1.15) Activated Partial Thromboplast Time 27.1 SEC (24.5-34.5) Sodium Level 141 mmol/L (136-145) Potassium Level 4.0 mmol/L (3.5-5.1) Chloride Level 103 mmol/L (98-107) Carbon Dioxide Level 31 mmol/L (20-31) Anion Gap 7 (5-15) Blood Urea Nitrogen 23 mg/dL (9-23) Creatinine 1.26 mg/dL (0.700-1.30) Glomerular Filtration Rate Calc 64 mL/min (>90) BUN/Creatinine Ratio 18.3 (10.0-20.0) Serum Glucose 91 mg/dL (74-106) Calcium Level 9.8 mg/dL (8.7-10.4) Total Bilirubin 0.7 mg/dL (0.2-1.0) Aspartate Amino Transferase (AST) 24 U/L (13-40) Alanine Aminotransferase (ALT) 44 U/L (7-40) Alkaline Phosphatase 70 U/L (46-116) Total Protein 6.5 g/dL (5.7-8.2) Albumin 4.3 g/dL (3.2-4.8) Magnesium Level 2.1 mg/dL (1.6-2.6) B-Type Natriuretic Peptide 3.60 pg/mL (0-100) Triglycerides Level 134 mg/dL (< 150) Cholesterol Level 142 mg/dL (< 200) LDL Cholesterol 99 mg/dL (< 100) HDL Cholesterol 30 mg/dL (40-59) Hemoglobin A1c 5.7 % A1C (<5.7) Thyroid Stimulating Hormone (TSH) 2.08 uIU/mL (0.55-4.78) Vitamin D 25-Hydroxy 42.4 ng/mL (30.0-100) Test 03/25/24 09:53 03/25/24 04:15 03/24/24 17:44 03/24/24 12:00 Urine Color Yellow (Yellow) Urine Clarity Clear (Clear) Urine pH 6.0 (5.0-9.0) Urine Specific [place] 1.022 (1.001-1.035) Urine Protein Negative (Negative) Urine Ketones Negative (Negative) Urine Blood Negative /uL (Negative) Urine Nitrite Negative (Negative) Urine Bilirubin Negative (Negative) Urine Urobilinogen 2 mg/dL (Negative) Urine Leukocyte Esterase Negative /uL (Negative) Urine RBC 1 /hpf (0 - 3) Urine WBC 1 /hpf (0 - 3) Urine Squamous Epithelial Cells None seen /hpf (<5) Urine Bacteria None seen /hpf (None Seen) Urine Mucus Few (None Seen) Urine Glucose Normal mg/dL (Normal) SARS-CoV-2 Antigen (Rapid) Negative (NEGATIVE) Influenza Type A Antigen Negative (Negative) Influenza Type B Antigen Negative (Negative) D-Dimer, Quantitative 0.36 mg/L FEU (0.0-0.49) Troponin I High Sensitivity 3 ng/L (</=54) Other Laboratory Tests 03/30/24 04:40 Brief Hx & Hospital Course: Covering Dr. Martinez: A 63-year-old male patient; multiple comorbidities; who presented to the emergency department with chest discomfort and occasional cough; details as below: #Chest discomfort; ACS ruled out in the setting of significant family history of CAD and severe coronary artery calcification on chest CT; CAD: Cardiac catheterization: Mild to moderate calcified coronary artery disease involving the LAD.with normal LVEDP; discharged home on aspirin and statin; to follow up with discharge clinic on April 06, 2024; will need referral to Cardiology to follow up in 2 to 4 weeks; more details in the progress note from the day of discharge #Hypertensive heart disease with diastolic heart failure; continue home medication along with metoprolol succinate; reviewed echocardiogram; to follow up with discharge clinic on April 06, 2024; will need referral to Cardiology to follow up in 2 to 4 weeks #Acute diastolic congestive heart failure with lower extremity edema/swelling; reviewed echocardiogram; was on IV diuresis; repeat chest x-ray with no acute abnormalities; now trace pitting edema so was not discharged on Lasix; cardiology is following; to follow up with discharge clinic on April 06, 2024; will need referral to Cardiology to follow up in 2 to 4 weeks #Metabolic syndrome with morbid obesity and prediabetes; counseled the patient about the importance of adopting healthy lifestyle with diet and exercise in order to lose weight; to follow up with discharge clinic on April 06, 2024; will need referral to Cardiology to follow up in 2 to 4 weeks #Morbid obesity; details as above; #Prediabetes; newly diagnosed; hemoglobin A1c of 5.7%; details as above #Acute bronchitis with possible broncho pneumonia; received a course of IV antibiotics; satting well on room air; will not discharge on oral antibiotics #Lower extremity edema/swelling; most likely due to acute diastolic heart failure; DVTs ruled out; details as above Physical examination on the day of discharge before discharging the patient: General Appearance: Alert, Oriented X3, Cooperative, No acute distress HEENT: Atraumatic Lungs: Clear to auscultation, Normal air movement Cardiovascular: Regular rate, Normal S1, Normal S2, No murmurs Abdomen: Normal bowel sounds, Soft, No tenderness Extremities: Cardiac catheterization site with no bleeding/swelling/hematoma/discharge/tenderness; trace pitting edema Neuro: Normal speech, Cranial nerves 3-12 NL Psych/Mental Status: Mental status NL, Mood NL Patient was discharged on aspirin, statin, and metoprolol succinate. Patient was instructed to follow up with discharge clinic on the 06 April 2024; also need referral to Cardiology to be followed up in 2 to 4 weeks. Consults/Reason for consult Cardiology for chest discomfort and severe chronic calcification Operations or Procedures Cardiac catheterization Condition at Discharge: Stable Final Diagnosis/Problems List Chest discomfort; ACS ruled out; CAD: Cardiac catheterization: Mild to moderate calcified coronary artery disease involving the LAD.2. Normal LVEDP. Secondary Diagnosis: As above Discharge Disposition: Home Discharge Instruct/Medications Diet: Cardiac 2g Na,low cholest Activity: No Restrictions, As Tolerated Follow Up/Referral: Follow up with the discharge clinic on April 06, 2024 in the morning; follow up with Cardiology within 2-4 weeks Medications: Send aspirin, statin, beta blockers to pharmacy Discharge Statement: "Patient was advised to return to the ER or call 911 if any headaches, dizziness, shortness of breath, chest pain, abdominal pain, bleeding, fevers, or worsening of medical condition. Patient was counseled about treatment plan, medications, possible side effects, patientverbalized understanding. All questions were answered to the best of my ability. This discharge took greater then 30 minutes in planning, reviewing documentation, counseling the patient, and discussing with other team members." ASSESSMENT ASSESSMENT Assessment Chest discomfort; ACS ruled out; CAD: Cardiac catheterization: Mild to moderate calcified coronary artery disease involving the LAD.2. Normal LVEDP. Date of Service: Mar 30, 2024 Billing Provider: SAMARIA HALL MD Common Visit Codes: [id number] DISCH DAY >30min SAMARIA HALL MD Mar 30, 2024 16:03
--- NOTE | 2024-03-30 18:31 | DVHPN2 ---
Consult Progress Note Date Seen: Mar 30, 2024 Subjective Review of Systems: CVS:Normal, RESPIRATORY:Normal, NEURO:Normal Other Systems: Right groin area is intact. S/p LHC Objective vital signs Vital Sign Date Time Temp Pulse Resp B/P (MAP) Pulse Ox O2 Delivery O2 Flow Rate FiO2 03/30/24 16:09 98.0 74 18 112/73 (86) 96 98.0 03/30/24 10:00 Room Air 0.0 03/30/24 10:00 21 Total Intake and Output 03/29/24 03/29/24 03/30/24 15:00 23:00 07:00 Intake Total 1650 ml 900 ml Output Total 1500 ml Balance 150 ml 900 ml medications Current Medications Medications Dose Ordered Sig/Pilar Route Start Time Stop Time Status Last Admin Dose Admin Albuterol 2.5 mg Q6HP PRN NEB 03/24/24 22:00 03/29/24 08:09 2.5 MG Ipratropium [place] 0.5 mg Q6HP PRN NEB 03/24/24 22:00 03/29/24 08:09 0.5 MG Azithromycin 250 ml @ 125 mls/hr DAILY@2200 IV 03/25/24 22:00 03/29/24 20:59 125 MLS/HR Guaifenesin/ Dextromethorphan 10 ml Q4HP PRN PO 03/25/24 00:45 03/28/24 22:35 10 ML Acetaminophen 650 mg Q6HP PRN PO 03/25/24 10:00 Tramadol HCl 50 mg Q6HP PRN PO 03/25/24 10:00 Enoxaparin Sodium 40 mg DAILY SC 03/26/24 10:00 03/28/24 09:43 40 MG Aspirin 81 mg DAILY PO 03/28/24 10:00 03/29/24 09:44 81 MG Metoprolol Succinate 25 mg DAILY PO 03/28/24 10:00 03/30/24 10:02 25 MG Atorvastatin Calcium 40 mg HS PO 03/27/24 22:00 03/29/24 20:59 40 MG Examination: LUNGS:Normal, CVS:Normal, NEURO:Normal laboratory and microbiology Laboratory Tests 03/30/24 04:40 Test 03/30/24 04:40 Range/Units Serum Glucose 91 74-106 mg/dL Problem List/Assessment/Plan Problem List/Assessment/Plan Coronary ischemia ruled out Pertinent family history for CAD Acute bronchitis Pre-diabetes, newly diagnosed Hypertension Obesity Plan/Recommendation (Dr. Valdez) The patient who presented with respiratory symptoms underwent a CT chest suggestive of severe coronary calcifications. Given incidental findings he underwent a nuclear stress test yield to be positive. Cardiac catheterization and coronary angiogram revealed mild to moderate disease in the ostial/proximal to mid LAD. We recommend initiation of lipid-lowering agent and single- antiplatelet therapy. Transthoracic echocardiogram revealed EF 65%. There is no further cardiac work-up indicated at this time. kindly call if in need to re-consult. Thank you for allowing us to care for this patient. This medical document was created using an electronic medical record system with voice recognition software and computerized dictation system. Although this document has been carefully reviewed, there might still be some phonetic and typographical errors. Occasional wrong-word or ``sound-alike substitutions may have occurred due to the inherent limitations of voice recognition software. These areas are purely typographical due to imperfections of the software programs and do not reflect any compromise in the patient's medical care. Please read the chart carefully and recognize, using context, where these substitutions have occurred. Plan discussed with: Patient, Other Date of Service: Mar 30, 2024 Billing Provider: ISAURA VALDEZ MD Cardiology Common Codes: [id number] INP/OBS CARE(Mod) AIDA HUTTON [facility] Mar 30, 2024 18:31
--- NOTE | 2024-03-31 18:04 | ECG ---
[facility] Test Date: 2024-03-24 Test Time: 11:44:30 Pat Name: KARELY GARCIA Department: ER Room: [facility]0T B Gender: M Supervisor Yard: DR HAQUE: 1960 Requested By: STARLA FUENTES Order Number: [id number] Reading MD: Chuy Fu Measurements Intervals [place] Rate: 80 P: 14 SD: 200 QRS: 58 QRSD: 96 T: 46 QT: 402 QTc: 464 Interpretive Statements Sinus rhythm Electronically Signed On 03-31-2024 18:12:48 PST by Chuy Fu Please click the below link to view image of tracing.
== END 2024-03-30 20:05 | disposition home or self-care (01) | DRG 286 ==
LOC: ER 11:30 → OVERFLOW 20:53 → WEST WING 03-25 03:49 → TELE-WESTW 03-29 01:36
PROVIDERS: ADMIT Internal Medicine; ATTEND Internal Medicine
PROC: 4A023N7 Measurement of Cardiac Sampling and Pressure, Left Heart, Percutaneous Approach (ICD-10-PCS; principal; 2024-03-30)
PROC: B211YZZ Fluoroscopy of Multiple Coronary Arteries using Other Contrast (ICD-10-PCS; 2024-03-30)
DX: I25.10 Atherosclerotic heart disease of native coronary artery without angina pectoris (principal); I50.31 Acute diastolic (congestive) heart failure; J15.9 Unspecified bacterial pneumonia; J15.69 Pneumonia due to other Gram-negative bacteria; I11.0 Hypertensive heart disease with heart failure; E66.01 Morbid (severe) obesity due to excess calories; J20.9 Acute bronchitis, unspecified; E88.810 Metabolic syndrome; Z20.822 Contact with and (suspected) exposure to COVID-19; J45.909 Unspecified asthma, uncomplicated; Z66 Do not resuscitate; Z82.49 Family history of ischemic heart disease and other diseases of the circulatory system; Z68.39 Body mass index [BMI] 39.0-39.9, adult; Z79.899 Other long term (current) drug therapy
CPT/HCPCS: 36415; 71045; 71250; 78452; 80048; 80053; 80061; 81001; 82306; 83036; 83735; 83880; 84443; 84484; 85025; 85379; 85610; 85730; 87426; 87804; 93005; 93017; 93306; 93458; 93970; 94640; 96365; 99152; G0378; J2250

== ENCOUNTER 2024-04-02 02:25 | Inpatient (IN) | payer MEDICAID ==
[~2024-04-02] VITALS: Ht 190.5 cm; Wt 139.3 kg
[~2024-04-02 02:25] MED LIST changes: +ASPI-325 PO; -ATEN50TA PO; +ATOR40TA52 PO; -DOCU-94 PO; +METO-289 PO
[2024-04-02 02:55] VITALS: PULSE 76; RESP 18; O2SAT 94
[2024-04-02 03:03] LABS: Basophils # (auto) 0 10 ^3/uL (0-0.2); Basophils % (auto) 0.3 % (0.0-2.0); Eosinophils # (auto) 0 10 ^3/uL (0-0.8); Eosinophils % (auto) 0.3 % (0.0-7.0); Hematocrit 40.8 % (41.0-53.0); Hemoglobin 13.6 g/dL (13.5-17.5); Lymphocytes # (auto) 1.1 10 ^3/uL (0.4-5.4); Lymphocytes % (auto) 12.4 % (10.0-50.0); Mean Corpuscular Hemoglobin 29.3 pg (28.0-32.0); Mean Corpuscular Hgb Conc. 33.4 g/dL (32.0-36.0); Mean Corpuscular Volume 87.8 fL (80.0-100.0); Monocytes # (auto) 0.5 10 ^3/uL (0-1.3); Monocytes % (auto) 5.4 % (0.0-12.0); Neutrophils # (auto) 7.4 10 ^3/uL (1.6-8.6); Neutrophils % (auto) 81.6 % (37.0-80.0); Platelet Count (auto) 200 10^3/uL (140-450); Red Blood Cells 4.65 10^6/uL (4.5-5.90); Red Cell Distribution Width 14.5 % (11.8-14.3); White Blood Cell 9.1 10^3/uL (4.4-10.8)
--- NOTE | 2024-04-02 03:10 | ED.PDOC ---
HPI Comments 63 year old male presents to the ED with a chief complaint of chest pain onset yesterday around 20:00. Patient states he was asleep, woke up experiencing a sharp chest pain as well as nausea, vomiting and epigastric pain. He was recently discharged from [facility] on 03/30/2024 with diagnosis of Bronchitis. Upon assessment patient's O2 sat was 91%, does not use oxygen at home. Past medical history of asthma, HTN. Denies shortness of breath, blurry vision, dizziness, diarrhea, constipation. No other symptoms or modifying factors present at this time. Chief Complaint: Chest Pain Time Seen by MD: 03:00 Primary Care Provider: KAREN Zavala Notes: Medications, Allergies Allergies: Coded Allergies: NO KNOWN ALLERGIES (Unverified , 06/04/21) Home Meds Active Scripts Atorvastatin Calcium (ATORVASTATIN CALCIUM) 40 Mg Tab, 40 MG PO DAILY for 90 Days, #90 TAB Prov:SAMARIA HALL MD 03/30/24 Metoprolol Succinate (Metoprolol Succinate Er) 50 Mg Tab, 50 MG PO DAILY for 90 Days, #90 TAB Prov:SAMARIA HALL MD 03/30/24 Aspirin (Aspirin Low Dose) 81 Mg Tab, 81 MG PO DAILY for 90 Days, #90 TAB Prov:SAMARIA HALL MD 03/30/24 Reported Medications Semaglutide (Wegovy) 2.4 Mg/0.75 Ml Inj, 1 INJ SC QWEEKLY for 28 Days, #3 INJECT 0.75 MILILITERS SUBCUTANEOUSLY EVERY WEEK 03/25/24 Baclofen (Baclofen) 20 Mg Tab, 1 TAB PO QPM for 90 Days, #90 03/25/24 Discontinued Reported Medications Atenolol (Atenolol) 50 Mg Tab, 1 TAB PO DAILY for 15 Days, #15 03/25/24 Information Source: Patient Mode of Arrival: Ambulatory Severity: Moderate Timing: Hours Duration: Since onset Prehospital treatment: None Location: Chest (L) Radiation: Abdomen Quality: Sharp Onset: While Asleep Cardiac Risk Factors: HTN PE Risk Factors: None History of: None Modifying Factors: Nothing Associated Signs and Symptoms: Abdominal Pain, N/V Past Medical History PAST MEDICAL HISTORY: Asthma, HTN Surgical History: Denies all surgeries Family History Family History: Reviewed,noncontributory to illness, No family hx of Cancer, No family hx of DM, No family hx of Heart jenny, No family hx of HTN, No family hx ofKidney jenny, No family hx of Liver jenny, No family hx of Lung jenny, No family hx of Stroke Social History Smoker: Non-Smoker, Secondhand Alcohol: Denies ETOH Use Drugs: Denies Drug Use Lives In: Home Constitutional: denies: chills, diaphoresis, fatigue, fever, malaise, sweats, weakness, others EENTM: denies: blurred vision, double vision, ear bleeding, ear discharge, ear drainage, ear pain, ear ringing, eye pain, eye redness, hearing loss, mouth pain, mouth swelling, nasal discharge, nose bleeding, nose congestion, nose pain, photophobia, tearing, throat pain, throat swelling, voice changes, others Respiratory: denies: cough, hemoptysis, orthopnea, SOB at rest, shortness of breath, SOB with excertion, stridor, wheezing, others Cardiovascular: reports: chest pain; denies: dizzy spells, diaphoresis, Dyspnea on exertion, edema, irregular heart beat, left arm pain, lightheadedness, palpitations, PND, syncope, others Gastrointestinal: reports: abdominal pain, nausea, vomiting; denies: abdomen distended, blood streaked bowels, constipated, diarrhea, dysphagia, difficulty swallowing, hematemesis, melena, poor appetite, poor fluid intake, rectal bleeding, rectal pain, others Genitourinary: denies: burning, dysuria, flank pain, frequency, hematuria, incontinence, penile discharge, penile sore, pain, testicle pain, testicle swelling, urgency, others Neurological: denies: dizziness, fainting, headache, left sided numbness, left sided weakness, numbness, paresthesia, pre-existing deficit, right sided nu mbness, right sided weakness, seizure, speech problems, tingling, tremors, weakness, others Musculoskeletal: denies: back pain, gout, joint pain, joint swelling, muscle pain, muscle stiffness, neck pain, others Integumetry: denies: bruises, change in color, change in hair/nails, dryness, laceration, lesions, lumps, rash, wounds, others Allergic/Immunocompromised: denies: Difficulty Healing, Frequent Infections, Hives, Itching, others Hematologic/Lymphatic: denies: anemia, blood clots, easy bleeding, easy bruising, swollen glands, others Endocrine: denies: excessive hunger, excessive sweating, excessive thirst, excessive urination, flushing, intolerance to cold, intolerance to heat, unexplained weight gain, unexplained weight loss, others Psychiatric: denies: anxiety, bipolar disorder, depression, hopeless, panic disorder, schizophrenia, sleepless, suicidal, others All Other Systems: Reviewed and Negative Physical Exam General Appearance: Moderate Distress, Obese HEENT: Other (Unremarkable) Neck: Full Range of Motion, Normal Inspection Respiratory: Decreased Breath Sounds, Lungs Clear, No Accessory Muscle Use, No Respiratory Distress Cardiovascular: No JVD, Regular Rate/Rhythm Breast Exam: Deferred Gastrointestinal: Epigastric, LUQ, RUQ, Soft, Tenderness Genitalia: Deferred Pelvic: Deferred Rectal: Deferred Extremities: Leg edema, Normal inspection, Normal range of motion, Non-tender, Pedal edema Neurologic: Alert (Oriented x4), Normal Affect, Normal Mood, Other (Ambulatory without difficulty. No gross focal deficit.) Cerebellar Function: NOT DONE Reflexes: NOT DONE Skin: Dry, Normal Color, Warm Lymphatic: NOT DONE EKG EKG : Comments Sinus rhythm, rate 81, normal intervals, normal axis, normal QRS, nonspecific T changes. Was a procedure done? Was a procedure done?: No CP Differential Dx Differential Diagnosis: Angina, Anxiety / Panic Attack, Electrolyte Disorder, Heart Failure, SC Other Differential Diagnosis Pancreatitis, enteritis, viral syndrome, asthma/COPD/bronchitis Differential Diagnosis: CHF Differential Diagnosis: Chest Wall Pain, Esophageal reflux/spasm, Gastritis, Myocardial Infarction, Pericarditis, Pneumonia X-Ray, Labs, Meds, VS Vital Signs Date Time Temp Pulse Resp B/P (MAP) Pulse Ox O2 Delivery O2 Flow Rate FiO2 04/02/24 04:08 16 94 Room Air* 0 21 04/02/24 04:08 94 Room Air* 0 21 04/02/24 03:35 76 12 147/72 04/02/24 02:55 76 18 94 Room Air* 0 21 04/02/24 02:55 97.7 76 17 145/67 (93) 94 97.7 04/02/24 02:42 97.8 80 22 151/84 (106) 100 04/02/24 02:34 81 Lab Test 04/02/24 03:50 04/02/24 03:20 04/02/24 02:32 Range/Units Urine Color Pending Urine Clarity Pending Urine pH Pending Urine Specific [place] Pending Urine Protein Pending Urine Ketones Pending Urine Blood Pending Urine Nitrite Pending Urine Bilirubin Pending Urine Urobilinogen Pending Urine Leukocyte Esterase Pending Urine RBC Pending Urine WBC Pending Urine Squamous Epithelial Cells Pending Urine Bacteria Pending Urine Glucose Pending Influenza Type A Antigen Pending Influenza Type B Antigen Pending SARS-CoV-2 Antigen (Rapid) Pending Troponin I High Sensitivity 6 7 </=54 ng/L White Blood Count 9.1 # 4.4-10.8 10^3/uL Red Blood Count 4.65 4.5-5.90 10^6/uL Hemoglobin 13.6 13.5-17.5 g/dL Hematocrit 40.8 L 41.0-53.0 % Mean Corpuscular Volume 87.8 80.0-100.0 fL Mean Corpuscular Hemoglobin 29.3 28.0-32.0 pg Mean Corpuscular Hemoglobin Concent 33.4 32.0-36.0 g/dL Red Cell Distribution Width 14.5 H 11.8-14.3 % Platelet Count 200 140-450 10^3/uL Mean Platelet Volume 9.0 6.9-10.8 fL Neutrophils (%) (Auto) 81.6 H 37.0-80.0 % Lymphocytes (%) (Auto) 12.4 10.0-50.0 % Monocytes (%) (Auto) 5.4 0.0-12.0 % Eosinophils (%) (Auto) 0.3 0.0-7.0 % Basophils (%) (Auto) 0.3 0.0-2.0 % Neutrophils # (Auto) 7.4 1.6-8.6 10 ^3/uL Lymphocytes # (Auto) 1.1 0.4-5.4 10 ^3/uL Monocytes # (Auto) 0.5 0-1.3 10 ^3/uL Eosinophils # (Auto) 0 0-0.8 10 ^3/uL Basophils # (Auto) 0 0-0.2 10 ^3/uL Nucleated Red Blood Cells 0.0 % Prothrombin Time 10.7 9.3-11.8 sec Prothrombin Time INR 1.01 0.9-1.15 Activated Partial Thromboplast Time 27.3 24.5-34.5 SEC D-Dimer, Quantitative 0.50 H 0.0-0.49 mg/L FEU Sodium Level 142 136-145 mmol/L Potassium Level 4.6 3.5-5.1 mmol/L Chloride Level 108 H 98-107 mmol/L Carbon Dioxide Level 29 20-31 mmol/L Anion Gap 5 5-15 Blood Urea Nitrogen 17 9-23 mg/dL Creatinine 1.27 0.700-1.30 mg/dL Glomerular Filtration Rate Calc 63 >90 mL/min BUN/Creatinine Ratio 13.4 10.0-20.0 Serum Glucose 127 H 74-106 mg/dL Calcium Level 9.9 8.7-10.4 mg/dL B-Type Natriuretic Peptide 30.12 0-100 pg/mL Lipase 71 H 12-53 U/L Current Medications Medications (Trade) Dose Ordered Sig/Pilar Route Start Time Stop Time Status Last Admin Morphine Sulfate 4 mg ONCE ONCE IV 04/02/24 03:15 04/02/24 03:16 DC 04/02/24 03:35 Ondansetron HCl (Zofran) 4 mg ONCE ONCE IV 04/02/24 03:15 04/02/24 03:16 DC 04/02/24 03:33 Famotidine (Pepcid Injection) 20 mg ONCE ONCE IV 04/02/24 03:15 04/02/24 03:16 DC 04/02/24 03:31 Albuterol (Ventolin Medneb) 5 mg ONCE ONCE NEB 04/02/24 04:00 04/02/24 04:01 DC 04/02/24 04:08 Ipratropium [place] (Atrovent Medneb) 0.5 mg ONCE ONCE NEB 04/02/24 04:00 04/02/24 04:01 DC 04/02/24 04:08 Methylprednisolone Sodium Succinate (Solu Medrol) 125 mg ONCE ONCE IV 04/02/24 04:00 04/02/24 04:01 DC 04/02/24 04:09 PROCEDURE(s): CXRP - CHEST PORTABLE REASON: cp ORDER NUMBER(s): [id number], ACCESSION NUMBER(s): [id number] Examination: CXRP Clinical Indication: cp Comparison: None. Technique: Frontal radiograph of the chest was obtained. Findings: Lungs are clear and well expanded with no pulmonary infiltrate or pleural effusion. There is no pneumothorax. The cardiomediastinal silhouette is within normal limits. No acute osseous abnormality is seen. Impression: No acute cardiopulmonary disease is seen. Electronically Signed 04/02/2024 03:59 Mauri Bush EDURE(s): ABPL - CT AB PEL WO CON-NO ORAL OR IV REASON: upper abd pain, n/v ORDER NUMBER(s): [id number], ACCESSION NUMBER(s): [id number] Exam: CT CT AB PEL WO CON-NO ORAL OR IV History: upper abd pain, n/v Comparison Study: None available at time of dictation. Technique: Multidetector spiral CT of the abdomen and pelvis was performed from lung bases to pubic symphysis. Imaging was performed without intravenous contrast. Coronal and sagittal multiplanar reformats were obtained from the axial data set by the technologist. Radiation Dose : 1. Abdomen/Pelvis: CTDIvol 26.9 mGy, DLP 1589.8 mGy*cm. Findings: Evaluation of vasculature and solid organs is limited due to lack of intravenous contrast use. Lung Bases: There is a calcified nodule in the right middle lobe measuring 1.3 cm. Coronary artery disease. The heart is not enlarged. Liver: The liver is normal in size. No focal lesions. Gallbladder and Biliary Tree: The gallbladder is unremarkable. No intrahepatic or extrahepatic biliary ductal dilatation. Spleen: Unremarkable Pancreas: The pancreas is grossly unremarkable. Adrenal Glands: Unremarkable Kidneys: Left renal atrophy. No intrarenal calculi or hydronephrosis. Mild nonspecific bilateral perinephric fat stranding. GI tract: The stomach is grossly normal in appearance. No evidence of small bowel wall thickening or abnormal dilatation to suggest bowel obstruction. The colon is unremarkable. The appendix is visualized and is normal. Peritoneum/mesentery/retroperitoneum. No evidence of free intraperitoneal air. No ascites. No evidence of suspicious lymphadenopathy. Abdominal Wall: Unremarkable. Vasculature: The visualized abdominal aorta is normal in size and caliber. Evaluation of abdominal and pelvic vessels is limited due to lack of intravenous contrast. Urinary Bladder: Grossly unremarkable for degree of distention. Pelvic Organs: Unremarkable Musculoskeletal: No aggressive focal bony lesions, acute fractures or dislocation. There is right hip joint space narrowing and osteophyte formation consistent with arthritis. There is intervertebral disc space narrowing at L5- S1. IMPRESSION: 1. No acute abdominal or pelvic findings. 2. Old granulomatous disease in the lungs. 3. Coronary artery disease. X-Ray, Labs, Meds, VS Comment 63-year-old male with a history of asthma and hypertension complaining of chest pain, epigastric pain, nausea and vomiting Vitals remarkable for respiratory rate 22, BP 151/84 , oxygen saturation 91% on room air Exam remarkable for upper abdominal tenderness to palpation Rhythm strip independently interpreted by me: Sinus rhythm, rate eighty-one, no ectopy. Chest x-ray No acute disease CT abdomen and pelvis IMPRESSION: 1. No acute abdominal or pelvic findings. 2. Old granulomatous disease in the lungs. 3. Coronary artery disease. CBC, basic metabolic panel, BNP and 2 serial troponins unremarkable for any abnormality of acute significance Lipase elevated at 71 Influenza and COVID tests are pending Patient treated with the following in the ED: Morphine 4 mg IV, Zofran 4 mg IV, Pepcid 20 mg IV, albuterol 5 mg/Atrovent 0.5 mg nebulized, Solu-Medrol 125 mg IV On re-evaluation, patient states pain has improved, vitals were stable, oxygen saturation was normal on 2 L nasal cannula. Plan is to admit the patient for pain control and GI evaluation Time of 1ST Reevaluation: 03:30 Reevaluation 1ST: Unchanged Patient Education/Counseling: Diagnosis, Treatment, Prognosis Family Education/Counseling: No Family Present Additional Information I reviewed the following notes from patient's past medical encounters: The following tests were ordered, and results were reviewed by me: TROP -x3, EKG -x3, CBC, BNP, XY CHEST, BMP, D-DIMER, PTPTT, LIPASE, UA, RAPID INFLUENZA A&B, COVID, CT AB PEL WO CON I reviewed and agreed with the following test results read by other providers: CT AB PEL WO CON, XY CHEST I discussed treatment and results with medical personnel and: patient Departure 1 Departure Time of Disposition: 04:06 Impression: Primary Impression: Acute pancreatitis Qualified Codes: K85.90 - Acute pancreatitis without necrosis or infection, unspecified Additional Impression: Asthma exacerbation Qualified Codes: J45.901 - Unspecified asthma with (acute) exacerbation Disposition: ADMITTED INPATIENT Admit to: Med Surg Condition: Guarded Critical Care Note Critical Care Time?: No Stability Stability form required: No Heart Score Heart Score: Heart Score Response (Comments) Value History Moderate Suspicious 1 EKG Repolarization Disturb 1 Age 45-64 1 Risk Factors 1 or 2 risk factors 1 Troponin Normal limit 0 Total 4 I personally scribed for JAIME ALICEA MD ([email or web address]) on 04/02/24 at 03:10. Electronically submitted by Leah Morfin ([email or web address]). I personally scribed for JAIME ALICEA MD ([email or web address]) on 04/02/24 at 03:18. Electronically submitted by Leah Morfin ([email or web address]). JAIME ALICEA MD Apr 02, 2024 03:10
[2024-04-02 03:16] LABS: Potassium 4.6 mmol/L (3.5-5.1); Sodium 142 mmol/L (136-145)
[2024-04-02 03:17] LABS: Anion Gap 5 (5-15); Carbon Dioxide 29 mmol/L (20-31)
[2024-04-02 03:18] LABS: Calcium 9.9 mg/dL (8.7-10.4)
[2024-04-02 03:23] LABS: BUN/Creatinine Ratio 13.4 (10.0-20.0); Blood Urea Nitrogen 17 mg/dL (9-23)
[2024-04-02 03:25] LABS: Chloride 108 mmol/L (98-107); Glucose 127 mg/dL (74-106)
[2024-04-02] MEDS: FAMOTIDINE (10MG/ML) 2ML VL IV ONE (03:31)
[2024-04-02] MEDS: ONDANSETRON HCL 4 MG/2 ML VIAL IV ONE (03:33)
[2024-04-02 03:35] LABS: INR 1.01 (0.9-1.15); Partial Thromboplastin Time 27.3 SEC (24.5-34.5); Prothrombin Time 10.7 sec (9.3-11.8)
[2024-04-02] MEDS: MORPHINE SULFATE 4 MG/ML SYR/VIAL IV ONE (03:35)
[2024-04-02 03:58] LABS: Urine Bacteria None Seen /hpf (None Seen)
--- NOTE | 2024-04-02 04:01 | DVH ---
Examination: CXRP Clinical Indication: cp Comparison: None. Technique: Frontal radiograph of the chest was obtained. Findings: Lungs are clear and well expanded with no pulmonary infiltrate or pleural effusion. There is no pneumothorax. The cardiomediastinal silhouette is within normal limits. No acute osseous abnormality is seen. Impression: No acute cardiopulmonary disease is seen. Electronically Signed 04/02/2024 03:59 Mauri Bush
--- NOTE | 2024-04-02 04:06 | DVH ---
Exam: CT CT AB PEL WO CON-NO ORAL OR IV History: upper abd pain, n/v Comparison Study: None available at time of dictation. Technique: Multidetector spiral CT of the abdomen and pelvis was performed from lung bases to pubic s ymphysis. Imaging was performed without intravenous contrast. Coronal and sagittal multiplanar refor mats were obtained from the axial data set by the technologist. Radiation Dose : 1. Abdomen/Pelvis: CTDIvol 26.9 mGy, DLP 1589.8 mGy*cm. Findings: Evaluation of vasculature and solid organs is limited due to lack of intravenous contrast use. Lung Bases: There is a calcified nodule in the right middle lobe measuring 1.3 cm. Coronary artery d isease. The heart is not enlarged. Liver: The liver is normal in size. No focal lesions. Gallbladder and Biliary Tree: The gallbladder is unremarkable. No intrahepatic or extrahepatic bilia ry ductal dilatation. Spleen: Unremarkable Pancreas: The pancreas is grossly unremarkable. Adrenal Glands: Unremarkable Kidneys: Left renal atrophy. No intrarenal calculi or hydronephrosis. Mild nonspecific bilateral per inephric fat stranding. GI tract: The stomach is grossly normal in appearance. No evidence of small bowel wall thickening or abnormal dilatation to suggest bowel obstruction. The colon is unremarkable. The appendix is visual ized and is normal. Peritoneum/mesentery/retroperitoneum. No evidence of free intraperitoneal air. No ascites. No evidenc e of suspicious lymphadenopathy. Abdominal Wall: Unremarkable. Vasculature: The visualized abdominal aorta is normal in size and caliber. Evaluation of abdominal a nd pelvic vessels is limited due to lack of intravenous contrast. Urinary Bladder: Grossly unremarkable for degree of distention. Pelvic Organs: Unremarkable Musculoskeletal: No aggressive focal bony lesions, acute fractures or dislocation. There is right hip joint space narrowing and osteophyte formation consistent with arthritis. There is intervertebral di sc space narrowing at L5-S1. IMPRESSION: 1. No acute abdominal or pelvic findings. 2. Old granulomatous disease in the lungs. 3. Coronary artery disease.
[2024-04-02] MEDS: ALBUTEROL SULF 2.5 MG/0.5ML(0.5%) NEB SOLN NEB ONE (04:08)
[2024-04-02] MEDS: IPRATROPIUM BROM 0.5 MG/2.5ML INH SOL NEB ONE (04:08)
[2024-04-02] MEDS: methylPREDNISolone SOD SUCC 125 MG/2 ML VL IV ONE (04:09)
[2024-04-02 04:43] LABS: Urine Blood Negative /uL (Negative); Urine Clarity Clear (Clear); Urine Color Yellow (Yellow); Urine Protein, UAD Negative (Negative); Urine Specific Gravity 1.027 (1.001-1.035); Urine Squamous Epithelial Cell FEW /hpf (<5); Urine Urobilinogen 2 mg/dL (Negative); Urine WBC <1 /hpf (0 - 3); Urine pH 6.5 (5.0-9.0)
[2024-04-02 04:58] LABS: COVID19 ANTIGEN SOFIA FIA NEGATIVE (NEGATIVE); Rapid Influenza A Negative (Negative); Rapid Influenza B Negative (Negative)
--- NOTE | 2024-04-02 07:01 | DVHHP2 ---
History of Present Illness Reason for Visit: chest pain History of Present Illness 63 yr old male pmh asthma, htn, pna left knee surgery cc here for chest pain patient states that the pain was on his left chest wall it woke him up at 8:00 p.m. last night. He states he was so concerned and came to the ER for evaluat ion. He states after the pain started he vomited but there was no blood. He states there was a pressure pain on his chest and it radiates to his back. He has no history IA but he stated he was here two days prior to get a cardiac catheterization and it appears everything was fine with the cath results per patient. He was supposed to follow up with Cardiology outpatient in two weeks. Patient states was discharged home. Patient denies any history of intubation in the past but he has states he has epigastric pain. When evaluating patient's labs and imaging Solu-Medrol was given albuterol and Atrovent Pepcid Zofran morphine CBC was unremarkable lipase is elevated at 71 troponin was negative glucose was 125 chest x-ray unremarkable CT scan of the abdomen pelvis unremarkable influenza and COVID was negative. With these findings we will admit patient for further workup and care we will also ask Cardiology re- evaluate patient's since recent catheterization procedure was completed Past Medical History Asthma hypertension pneumonia bronchitis Past Surgical History Left knee surgery Family History Reviewed, non-contributory to the management of this case. Past Social History The patient lives at home, denies smoking, alcohol or illicit drugs abuse. Review of Systems Constitutional: No: Fever, Chills, Sweats, Weakness, Malaise, Other Eyes: No: Pain, Vision change, Conjunctivae inflammation, Eyelid inflammation, Other, Redness ENT: No: Ear pain, Ear discharge, Nose pain, Nose discharge, Nose congestion, Mouth pain, Mouth swelling, Throat pain, Throat swelling, Other Respiratory: Cough, Shortness of breath, SOB with excertion; No: Dry, Wheezing, Hemoptysis, Pleuritic Pain, Sputum, Wheezing, Other Cardiovascular: Chest Pain; No: Palpitations, Orthopnea, Paroxysmal Noc. Dyspne a, Edema, Lt Headedness, Other Gastrointestinal: No: Nausea, Vomiting, Abdominal Pain, Diarrhea, Constipation, Melena, Hematochezia, Other Genitourinary: No Dysuria, No Frequency, No Incontinence, No Hematuria, No Retention, No Other Musculoskeletal: No: other, neck pain, shoulder pain, arm pain, back pain, hand pain, leg pain, foot pain Skin: No: Rash, Lesions, Jaundice, Bruising, Other Neurological: No: Weakness, Numbness, Incoordination, Change in speech, Confusion, Seizures, Other Allergies: Coded Allergies: NO KNOWN ALLERGIES (Unverified , 06/04/21) Exam Vital Signs Vital Signs Date Time Temp Pulse Resp B/P (MAP) Pulse Ox O2 Delivery O2 Flow Rate FiO2 04/02/24 05:00 97.0 81 13 134/64 (87) 98 97.0 04/02/24 04:08 Room Air* 0 21 General Appearance: Alert, Oriented X3, Cooperative, No acute distress HEENT: Atraumatic, PERRLA, EOMI, Mucous membr. moist/pink Respiratory: Clear to auscultation, Normal air movement Cardiovascular: Regular rate, Normal S1, Normal S2, No murmurs Abdominal: Normal bowel sounds, Soft, No tenderness, No hepatospenomegaly, No masses Extremities: No clubbing, No cyanosis, No edema, Normal pulses, No tenderness/swelling Skin: No rashes, No breakdown, No significant lesion Neuro: Normal gait, Normal speech, Strength at 5/5 X4 ext, Normal tone, Sensation intact, Cranial nerves 3-12 NL Psych/Mental Status: Mental status NL, Mood NL Labs/Xrays cxr unremarkable I reviewed labs, imaging CT scan abdomen pelvis, EKG and all diagnostic studies on this patient from ED records and the medical chart CT scan of the abdomen and pelvis unremarkable Labs Test 04/02/24 03:50 04/02/24 03:20 04/02/24 02:32 Range/Units Urine Color Yellow Yellow Urine Clarity Clear Clear Urine pH 6.5 5.0-9.0 Urine Specific [place] 1.027 1.001-1.035 Urine Protein Negative Negative Urine Ketones Negative Negative Urine Blood Negative Negative /uL Urine Nitrite Negative Negative Urine Bilirubin Negative Negative Urine Urobilinogen 2 H Negative mg/dL Urine Leukocyte Esterase Negative Negative /uL Urine RBC 2 0 - 3 /hpf Urine WBC <1 0 - 3 /hpf Urine Squamous Epithelial Cells Few <5 /hpf Urine Bacteria None seen None Seen /hpf Urine Glucose Normal Normal mg/dL Influenza Type A Antigen Negative Negative Influenza Type B Antigen Negative Negative SARS-CoV-2 Antigen (Rapid) Negative NEGATIVE Troponin I High Sensitivity 6 </=54 ng/L White Blood Count 9.1 # 4.4-10.8 10^3/uL Red Blood Count 4.65 4.5-5.90 10^6/uL Hemoglobin 13.6 13.5-17.5 g/dL Hematocrit 40.8 L 41.0-53.0 % Mean Corpuscular Volume 87.8 80.0-100.0 fL Mean Corpuscular Hemoglobin 29.3 28.0-32.0 pg Mean Corpuscular Hemoglobin Concent 33.4 32.0-36.0 g/dL Red Cell Distribution Width 14.5 H 11.8-14.3 % Platelet Count 200 140-450 10^3/uL Mean Platelet Volume 9.0 6.9-10.8 fL Neutrophils (%) (Auto) 81.6 H 37.0-80.0 % Lymphocytes (%) (Auto) 12.4 10.0-50.0 % Monocytes (%) (Auto) 5.4 0.0-12.0 % Eosinophils (%) (Auto) 0.3 0.0-7.0 % Basophils (%) (Auto) 0.3 0.0-2.0 % Neutrophils # (Auto) 7.4 1.6-8.6 10 ^3/uL Lymphocytes # (Auto) 1.1 0.4-5.4 10 ^3/uL Monocytes # (Auto) 0.5 0-1.3 10 ^3/uL Eosinophils # (Auto) 0 0-0.8 10 ^3/uL Basophils # (Auto) 0 0-0.2 10 ^3/uL Nucleated Red Blood Cells 0.0 % Prothrombin Time 10.7 9.3-11.8 sec Prothrombin Time INR 1.01 0.9-1.15 Activated Partial Thromboplast Time 27.3 24.5-34.5 SEC D-Dimer, Quantitative 0.50 H 0.0-0.49 mg/L FEU Sodium Level 142 136-145 mmol/L Potassium Level 4.6 3.5-5.1 mmol/L Chloride Level 108 H 98-107 mmol/L Carbon Dioxide Level 29 20-31 mmol/L Anion Gap 5 5-15 Blood Urea Nitrogen 17 9-23 mg/dL Creatinine 1.27 0.700-1.30 mg/dL Glomerular Filtration Rate Calc 63 >90 mL/min BUN/Creatinine Ratio 13.4 10.0-20.0 Serum Glucose 127 H 74-106 mg/dL Calcium Level 9.9 8.7-10.4 mg/dL B-Type Natriuretic Peptide 30.12 0-100 pg/mL Lipase 71 H 12-53 U/L Assessment/Plan Assessment/Plan acute hypoxia resp failure likely asthma cxr negative On O2 mask sats >92% consider abg if hypoxic consider bipap if with sob no need for antibiotics ordered Albuterol and Atrovent as needed for shortness of breath ordered solumedrol covid and influenza negative ordered ddimer fu result if postive will provide lovenox 1mg/kg acute asthma/bronchitis exacerbation cxr without infection ordered albuterol/Atrovent prn sob ordered solumedrol for now ordered protonix while on steroids acute chest pain likely related to pancreatitis vs nstemi trop x3 negative ekg no stemi pt had acs ruled out on last d/c on 03/30/24 pt was found on cath to have mild to mod cad involving LAD ws d/c home on asa and statin was to follow up with cards in 2-4wks ordered morphine as needed for pain ordered cards consult fu results 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
[2024-04-02 07:30] VITALS: PULSE 90; RESP 16; O2SAT 96
[2024-04-02] MEDS ORDERED: ONDANSETRON HCL 4 MG/2 ML VIAL IV PRN ×2 (07:30→09:00)
[2024-04-02] MEDS ORDERED: MORPHINE SULFATE 4 MG/ML SYR/VIAL IV PRN (07:30)
[2024-04-02] MEDS ORDERED: LORazepam 0.5 MG TAB PO PRN (07:30)
[2024-04-02] MEDS ORDERED: NITROGLYCERIN 0.4 MG SL TAB SL PRN ×2 (07:30)
[2024-04-02] MEDS ORDERED: LORazepam 2MG/ML-1ML VIAL IV ONE (09:00)
[2024-04-02] MEDS ORDERED: MORPHINE SULFATE INJ 2 MG/ml SYRG IV PRN (09:00)
[2024-04-02] MEDS: SUCRALFATE 1 GM/10 ML ORAL SUSP PO SCH (09:53)
[2024-04-02] MEDS: SODIUM CHLORIDE 0.9% 1,000 ML IV SCH (09:53)
[2024-04-02] MEDS: PANTOPRAZOLE 40 MG/10 ML VIAL INJ IV SCH (09:53)
[2024-04-02] MEDS: DOCUSATE SOD 100 MG CAP PO SCH (11:36)
[2024-04-02] MEDS: ASPirin-EC 81 mg tab PO SCH (11:36)
[2024-04-02] MEDS: METOPROLOL SUCCINATE XL 50 MG TAB PO SCH (11:37)
--- NOTE | 2024-04-02 13:28 | DVH ---
INDICATION: ABDOMINAL PAIN TECHNIQUE: Multiple real-time sonographic images of the abdomen were obtained. COMPARISON: None FINDINGS: Liver is homogenous in echogenicity. The liver measures 17.1 cm. No intrahepatic biliary ductal dilatation is noted. The gallbladder wall measures 0.6 cm and is unremarkable. Gallbladder sludge is present.. No yazmin cholecystic fluid or edema. The common duct is not visualized. The right kidney measures 12.1 cm. No hydronephrosis. The left kidney measures 9.2 cm. No hydronephro sis. The spleen measures 12.9 cm, within normal limits. The echogenicity is within normal limits. The pancreas is not well visualized due to obscuration from bowel gas. The visualized portions of the IVC and aorta are grossly unremarkable. IMPRESSION: Limited examination secondary to patient body habitus and shadowing from overlying bowel gas. Hepatomegaly. Gallbladder sludge is present in gallbladder wall appears mildly thickened.
--- NOTE | 2024-04-02 14:38 | DVHINCON2 ---
Date Seen: Apr 02, 2024 Referring Physician FRANKLIN Medrano Reason for Consultation Acute chest pain History of Present Illness This is a 63-year-old male patient who presents to the emergency room with chief complaint of chest pain. The patient reports the chest pain began at approximately 8:00 p.m. last night. He describes it as unprovoked, intermittent, sharp in nature, midsternal and nonradiating. Associated symptoms include nausea and vomiting. He also reports epigastric pain. He came to the emergency room for further evaluation. Cardiology has now been consulted for further evaluation. Initial twelve lead electrocardiogram reveals normal sinus rhythm without any ST segment changes and baseline wander in all leads (EKG machine reads rhythm as complete AV block). Serial troponin levels have been negative. Significant past medical history includes hypertension, prediabetes, asthma, and obesity. Of note, the patient was recently seen at this facility and underwent a coronary angiogram on 03/30/24 which revealed mild to moderate calcified disease in the ostial/proximal to mid LAD with otherwise no significant coronary artery disease. Past Medical History Past medical history reviewed. No other significant than mentioned above. Past Surgical History Left knee surgery Family History: Cardiovascular disease G8 FATHER, Hypertension G8 MOTHER Family History Family history reviewed. Social History Denies the use of tobacco, alcohol or illicit drugs. Allergies: Coded Allergies: NO KNOWN ALLERGIES (Unverified , 06/04/21) Home Meds Active Scripts Atorvastatin Calcium (ATORVASTATIN CALCIUM) 40 Mg Tab, 40 MG PO DAILY for 90 Days, #90 TAB Prov:SAMARIA HALL MD 03/30/24 Metoprolol Succinate (Metoprolol Succinate Er) 50 Mg Tab, 50 MG PO DAILY for 90 Days, #90 TAB Prov:SAMARIA HALL MD 03/30/24 Aspirin (Aspirin Low Dose) 81 Mg Tab, 81 MG PO DAILY for 90 Days, #90 TAB Prov:SAMARIA HALL MD 03/30/24 Reported Medications Semaglutide (Wegovy) 2.4 Mg/0.75 Ml Inj, 1 INJ SC QWEEKLY for 28 Days, #3 INJECT 0.75 MILILITERS SUBCUTANEOUSLY EVERY WEEK 03/25/24 Baclofen (Baclofen) 20 Mg Tab, 1 TAB PO QPM for 90 Days, #90 03/25/24 Discontinued Reported Medications Atenolol (Atenolol) 50 Mg Tab, 1 TAB PO DAILY for 15 Days, #15 03/25/24 Home Meds Home medications reviewed. Current Medications Current Medications Medications (Trade) Dose Ordered Sig/Pilar Route PRN Reason Start Time Stop Time Status Last Admin Aspirin (Ecotrin Enteric Coated Tablet) 81 mg DAILY PO 04/02/24 10:00 04/02/24 11:36 Metoprolol Succinate (Toprol Xl) 50 mg DAILY PO 04/02/24 10:00 04/02/24 11:37 Atorvastatin Calcium (Lipitor) 40 mg HS PO 04/02/24 22:00 Morphine Sulfate 2 mg Q30MP PRN IV FOR CHEST PAIN 04/02/24 07:30 Acetaminophen (Tylenol Tablet) 325 mg Q4HP PRN PO FOR HEADACHE 04/02/24 07:30 Lorazepam (Ativan Tablet) 0.5 mg Q6HP PRN PO ANXIETY 04/02/24 07:30 Docusate Sodium (Colace Capsule) 100 mg DAILY PO 04/02/24 10:00 04/02/24 11:36 Nitroglycerin (Ntrostat Sublingual) 0.4 mg Q5MINP PRN SL FOR CHEST PAIN 04/02/24 07:30 04/02/24 09:12 DC Ondansetron HCl (Zofran) 4 mg Q4HP PRN IV NAUSEA / VOMITING 04/02/24 07:30 04/02/24 09:12 DC Nitroglycerin (Ntrostat Sublingual) 0.4 mg Q5MINP PRN SL FOR CHEST PAIN 04/02/24 07:30 Sodium Chloride 1,000 ml @ 100 mls/hr Q10H IV 04/02/24 09:00 04/02/24 09:53 Pantoprazole Sodium (Protonix) 40 mg DAILY IV 04/02/24 10:00 04/02/24 09:53 Morphine Sulfate 2 mg Q4HPRN PRN IV MODERATE PAIN (4-6 PAIN SCALE) 04/02/24 09:00 Ondansetron HCl (Zofran) 4 mg Q6HPRN PRN IV NAUSEA / VOMITING 04/02/24 09:00 Sucralfate (Carafate Susp) 1 gm QID@0600,1130,1700,2200 PO 04/02/24 09:00 04/02/24 11:37 Review of Systems Constitutional: No symptom reported Ears, Nose, & Throat: No symptom reported Eyes: No symptom reported Neurological: No symptoms reported Pulmonary/Respiratory: No symptoms reported Cardiovascular: Chest pain Gastrointestinal: No symptom reported Genitourinary: No symptom reported Musculoskeletal: No symptom reported Skin: No symptom reported Psychiatric: No symptom reported Endocrine: No symptom reported Hematologic/Lymphatic: No symptom reported Vital Signs Vital Signs Date Time Temp Pulse Resp B/P (MAP) Pulse Ox O2 Delivery O2 Flow Rate FiO2 04/02/24 12:00 86 04/02/24 12:00 16 136/46 (76) 98 04/02/24 07:30 97.8 97.8 04/02/24 07:30 Nasal Cannula* 3 32 Physical Exam General Appearance: Cooperative. Morbidly obese Pulmonary/Respiratory: Clear, bilateral breaths sounds. Cardiovascular/Chest: Regular rate and rhythm. Peripheral Pulses: 2+ Radial (R). 2+ Radial (L). 2+ Pedal (R). 2+ Pedal (L) Abdominal Exam: Normal bowel sounds. Ankle Exam: Nonpitting ankle edema Lower extremities: Nonpitting bilateral lower extremity edema Neuro/Mental Status: A/OX4, coherent. Thoughts/Psych: Normal thought pattern. Appropriate mood and affect. Good judgment and insight. Appearance: No acute distress. Skin Exam: Normal inspection. Normal color. Warm and dry. Labs/Diagnostic Data Labs Test 04/02/24 08:02 04/02/24 03:50 04/02/24 02:32 Range/Units D-Dimer, Quantitative 0.29 0.0-0.49 mg/L FEU Troponin I High Sensitivity 6 </=54 ng/L Lipase 51 12-53 U/L Urine Color Yellow Yellow Urine Clarity Clear Clear Urine pH 6.5 5.0-9.0 Urine Specific [place] 1.027 1.001-1.035 Urine Protein Negative Negative Urine Ketones Negative Negative Urine Blood Negative Negative /uL Urine Nitrite Negative Negative Urine Bilirubin Negative Negative Urine Urobilinogen 2 H Negative mg/dL Urine Leukocyte Esterase Negative Negative /uL Urine RBC 2 0 - 3 /hpf Urine WBC <1 0 - 3 /hpf Urine Squamous Epithelial Cells Few <5 /hpf Urine Bacteria None seen None Seen /hpf Urine Glucose Normal Normal mg/dL Influenza Type A Antigen Negative Negative Influenza Type B Antigen Negative Negative SARS-CoV-2 Antigen (Rapid) Negative NEGATIVE White Blood Count 9.1 # 4.4-10.8 10^3/uL Red Blood Count 4.65 4.5-5.90 10^6/uL Hemoglobin 13.6 13.5-17.5 g/dL Hematocrit 40.8 L 41.0-53.0 % Mean Corpuscular Volume 87.8 80.0-100.0 fL Mean Corpuscular Hemoglobin 29.3 28.0-32.0 pg Mean Corpuscular Hemoglobin Concent 33.4 32.0-36.0 g/dL Red Cell Distribution Width 14.5 H 11.8-14.3 % Platelet Count 200 140-450 10^3/uL Mean Platelet Volume 9.0 6.9-10.8 fL Neutrophils (%) (Auto) 81.6 H 37.0-80.0 % Lymphocytes (%) (Auto) 12.4 10.0-50.0 % Monocytes (%) (Auto) 5.4 0.0-12.0 % Eosinophils (%) (Auto) 0.3 0.0-7.0 % Basophils (%) (Auto) 0.3 0.0-2.0 % Neutrophils # (Auto) 7.4 1.6-8.6 10 ^3/uL Lymphocytes # (Auto) 1.1 0.4-5.4 10 ^3/uL Monocytes # (Auto) 0.5 0-1.3 10 ^3/uL Eosinophils # (Auto) 0 0-0.8 10 ^3/uL Basophils # (Auto) 0 0-0.2 10 ^3/uL Nucleated Red Blood Cells 0.0 % Prothrombin Time 10.7 9.3-11.8 sec Prothrombin Time INR 1.01 0.9-1.15 Activated Partial Thromboplast Time 27.3 24.5-34.5 SEC Sodium Level 142 136-145 mmol/L Potassium Level 4.6 3.5-5.1 mmol/L Chloride Level 108 H 98-107 mmol/L Carbon Dioxide Level 29 20-31 mmol/L Anion Gap 5 5-15 Blood Urea Nitrogen 17 9-23 mg/dL Creatinine 1.27 0.700-1.30 mg/dL Glomerular Filtration Rate Calc 63 >90 mL/min BUN/Creatinine Ratio 13.4 10.0-20.0 Serum Glucose 127 H 74-106 mg/dL Calcium Level 9.9 8.7-10.4 mg/dL B-Type Natriuretic Peptide 30.12 0-100 pg/mL Assessment Chest pain, coronary artery disease ruled out Hypertension Acute hypoxic respiratory failure Acute pancreatitis Asthma Plan/Recommendation We will continue with the following plan/recommendations (Dr. Valdez): Patient seen and examined in the emergency room with . A recent echocardiogram done on 03/25/2024 reveals EF of 65%. The patient recently underwent a coronary angiogram on 03/30/24 that revealed mild to moderate calcified disease in the ostial/proximal to mid LAD with otherwise no significant coronary artery disease. We will continue to recommend aggressive medical therapy as well as risk factor modifications. Continue statin therapy with a goal LDL of less than 70. Rest of care per primary care team. There is no further inpatient cardiac workup indicated at this time. Thank you for allowing us to care for this patient. Please call with any questions or concerns. Critical care time spent: 40 minutes This medical document was created using an electronic medical record system with voice recognition software and computerized dictation system. Although this document has been carefully reviewed, there might still be some phonetic and typographical errors. Occasional wrong-word or ``sound-alike substitutions may have occurred due to the inherent limitations of voice recognition software. These areas are purely typographical due to imperfections of the software programs and do not reflect any compromise in the patient's medical care. Please read the chart carefully and recognize, using context, where these substitutions have occurred. Plan discussed with: Patient NYHA Physical activity limitations: NA Date of Service: Apr 02, 2024 Billing Provider: ISAURA VALDEZ MD Cardiology Common Codes: [id number] INP/OBS CARE (High) Cardiology Consultation Codes: [id number] CONSULT <45MIN VINNIE BARCENAS WEIGHT REDUCTION SPECIALIST Apr 02, 2024 14:38
[2024-04-02 18:35] VITALS: BP 145/83; PULSE 97; RESP 18; TEMP 98.2; O2SAT 94
--- NOTE | 2024-04-02 19:10 | ECG ---
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
[2024-04-02 20:00] VITALS: PULSE 94; RESP 18; O2SAT 92
[2024-04-02] MEDS: ATORVASTATIN 20 MG TAB PO SCH (20:37)
[2024-04-02 21:00] VITALS: BP 142/84; PULSE 94; RESP 18; TEMP 98.1; O2SAT 92
[2024-04-03] VITALS (13 sets, daily range): BP systolic 122–170; BP diastolic 71–90; PULSE 89–100; RESP 16–20; TEMP 98.1–99.3; O2SAT 92–100
[2024-04-03] MEDS: IPRATROPIUM BROM 0.5 MG/2.5ML INH SOL NEB PRN (04:27)
[2024-04-03] MEDS: ALBUTEROL SULF 2.5 MG/0.5ML(0.5%) NEB SOLN NEB PRN (04:27)
[2024-04-03 07:26] LABS: Alanine Aminotransferase 21 U/L (7-40); Alkaline Phosphatase 66 U/L (46-116); Anion Gap 6 (5-15); Aspartate Aminotransferase 18 U/L (13-40); BUN/Creatinine Ratio 12.2 (10.0-20.0); Blood Urea Nitrogen 12 mg/dL (9-23); Calcium 9.1 mg/dL (8.7-10.4); Carbon Dioxide 27 mmol/L (20-31); Lipase 35 U/L (12-53); Potassium 3.7 mmol/L (3.5-5.1); Sodium 140 mmol/L (136-145)
[2024-04-03 07:27] LABS: Bilirubin, Total 0.8 mg/dL (0.2-1.0); Total Protein 6.4 g/dL (5.7-8.2)
[2024-04-03 07:51] LABS: Basophils # (auto) 0 10 ^3/uL (0-0.2); Basophils % (auto) 0.2 % (0.0-2.0); Eosinophils # (auto) 0 10 ^3/uL (0-0.8); Hematocrit 38.7 % (41.0-53.0); Hemoglobin 12.8 g/dL (13.5-17.5); Lymphocytes # (auto) 0.8 10 ^3/uL (0.4-5.4); Lymphocytes % (auto) 4.3 % (10.0-50.0); Mean Corpuscular Hemoglobin 28.8 pg (28.0-32.0); Mean Corpuscular Hgb Conc. 33.2 g/dL (32.0-36.0); Mean Corpuscular Volume 86.9 fL (80.0-100.0); Monocytes # (auto) 1.3 10 ^3/uL (0-1.3); Monocytes % (auto) 7.1 % (0.0-12.0); Neutrophils # (auto) 16.1 10 ^3/uL (1.6-8.6); Neutrophils % (auto) 88.4 % (37.0-80.0); Platelet Count (auto) 183 10^3/uL (140-450); Red Blood Cells 4.45 10^6/uL (4.5-5.90); Red Cell Distribution Width 14.4 % (11.8-14.3); White Blood Cell 18.3 10^3/uL (4.4-10.8)
[2024-04-03 08:28] LABS: Chloride 107 mmol/L (98-107); Glucose 125 mg/dL (74-106)
[2024-04-03] MEDS ORDERED: FURO20TA3 PO (15:14)
--- NOTE | 2024-04-03 18:42 | DVH ---
Procedure: XY SMALL BOWEL SERIES-W GASTROGRA Reason for study/Clinical History: abdominal pain Comparison Study: None available at time of dictation. Technique: Single contrast small bowel series performed. FINDINGS/IMPRESSION: Initial clinic md associate view of the abdomen and pelvis appears demonstrates no acute process. Contrast is identified within the colon by 1 hour. This represents a normal small bowel transit time .
--- NOTE | 2024-04-03 23:29 | DVHPN2 ---
Subjective Abd pain continue. nausea resolving Reviewed: H&P Changes from previous H/P or p: No Changes General: Per HPI Objective Vitals Vital Signs Date Time Temp Pulse Resp B/P (MAP) Pulse Ox O2 Delivery O2 Flow Rate FiO2 04/03/24 21:00 98.9 94 20 152/81 (104) 96 98.9 04/03/24 20:00 Room Air* 0 21 Intake/Output Intake and Output 04/03/24 07:00 Intake Total 1564.999 ml Output Total 700 ml Balance 864.999 ml Intake Oral 800 ml IV Total 764.999 ml Output Urine Total 700 ml Exam GEN: Healthy appearing, well-developed, NAD. HEENT: NC/AT; MMM. CV: RRR, no m/r/g. LUNGS: CTAB, no w/r/c. ABD: Soft, NT/ND, NBS, no masses or organomegaly. EXT: skin Warm, well perfused. no rashes. No clubbing, cyanosis, or edema. NEURO: Ambulating with no limitations. No focal deficits. Medications Current Medications Medications Dose Ordered Sig/Pilar Route Start Time Stop Time Status Last Admin Dose Admin Aspirin 81 mg DAILY PO 04/02/24 10:00 04/03/24 10:02 81 MG Metoprolol Succinate 50 mg DAILY PO 04/02/24 10:00 04/03/24 10:02 50 MG Atorvastatin Calcium 40 mg HS PO 04/02/24 22:00 04/03/24 20:59 40 MG Morphine Sulfate 2 mg Q30MP PRN IV 04/02/24 07:30 Acetaminophen 325 mg Q4HP PRN PO 04/02/24 07:30 Lorazepam 0.5 mg Q6HP PRN PO 04/02/24 07:30 Docusate Sodium 100 mg DAILY PO 04/02/24 10:00 04/03/24 10:01 100 MG Nitroglycerin 0.4 mg Q5MINP PRN SL 04/02/24 07:30 Sodium Chloride 1,000 ml @ 100 mls/hr Q10H IV 04/02/24 09:00 04/03/24 15:00 100 MLS/HR Pantoprazole Sodium 40 mg DAILY IV 04/02/24 10:00 04/03/24 10:08 40 MG Morphine Sulfate 2 mg Q4HPRN PRN IV 04/02/24 09:00 Ondansetron HCl 4 mg Q6HPRN PRN IV 04/02/24 09:00 Sucralfate 1 gm QID@0600,1130,1700,2200 PO 04/02/24 09:00 04/03/24 11:30 1 GM Albuterol 2.5 mg Q4HPRN PRN NEB 04/03/24 04:15 04/03/24 04:27 2.5 MG Ipratropium [place] 0.5 mg Q4HPRN PRN NEB 04/03/24 04:15 04/03/24 04:27 0.5 MG Laboratory Results Laboratory Tests 04/03/24 06:32 Chemistry Test 04/03/24 06:32 Albumin 4.0 g/dL (3.2-4.8) Calcium Level 9.1 mg/dL (8.7-10.4) Total Protein 6.4 g/dL (5.7-8.2) Lipid panel Test 04/03/24 06:32 Lipase 35 U/L (12-53) LFT Test 04/03/24 06:32 Alanine Aminotransferase (ALT) 21 U/L (7-40) Alkaline Phosphatase 66 U/L (46-116) Aspartate Amino Transferase (AST) 18 U/L (13-40) Total Bilirubin 0.8 mg/dL (0.2-1.0) Urinalysis Test 04/02/24 03:50 Urine Color Yellow (Yellow) Urine Clarity Clear (Clear) Urine pH 6.5 (5.0-9.0) Urine Specific [place] 1.027 (1.001-1.035) Urine Protein Negative (Negative) Urine Ketones Negative (Negative) Urine Blood Negative /uL (Negative) Urine Nitrite Negative (Negative) Urine Bilirubin Negative (Negative) Urine Urobilinogen 2 mg/dL (Negative) H Urine Leukocyte Esterase Negative /uL (Negative) Urine RBC 2 /hpf (0 - 3) Urine WBC <1 /hpf (0 - 3) Urine Squamous Epithelial Cells Few /hpf (<5) Urine Bacteria None seen /hpf (None Seen) Urine Glucose Normal mg/dL (Normal) Microbiology Microbiology Date/Time Source Procedure Growth Status 04/02/24 20:37 Nose MRSA Screen - Final Complete Labs and/or images reviewed: Labs reviewed by me, Image(s) reviewed by me Assessment/Plan Assessment/Plan 04/03 - feeling better and tried CLD, after trial CLD patient develops abdominal pain again. Nausea and vomiting is resolving. We will try small-bowel follow- through Gastrografin. Keep patient admitted SP has decreased p.o. tolerance Intractable abdominal pain Intractable nausea, resolving Pancreatitis-lipase elevated P.o. intolerance Neutrophilia - patient was rales in the discharge for CHF exacerbation within 2 days of discharge patient's starts to develop/ patient presented with nausea and vomiting and abdominal pain - patient on CT abdomen has no acute abnormalities, does fine all granulomas in lungs and coronary artery disease - abdominal ultrasound shows hepatomegaly and gallbladder sludge - UDS likely viral gastroenteritis versus PUD - PPI Protonix 40 mg IV daily, continue Carafate - CLD trial -Gastrografin small-bowel follow-through HFpEF Metabolic syndrome Prediabetes Chronic lower extremity edema Diet CLD DVT versus Lovenox subQ GI prophylaxis PPI IV daily Med surge Full code Plan discussed with: Patient My Orders Orders - ZI ROSALES MD Procedure Category Date Status Time Communication Order ORDERS 04/03/24 Transmitted 11:07 Transfer Orders XFER 04/03/24 Transmitted 11:18 Small Bowel Series-W XY 04/03/24 Resulted Gastrogra 14:05 Date of Service: Apr 03, 2024 Billing Provider: ZI ROSALES MD Common Visit Codes: [id number] INP/OBS CARE(HIGH) ZI ROSALES MD Apr 03, 2024 23:29
[2024-04-04 01:00] VITALS: BP 134/74; PULSE 99; RESP 20; TEMP 98; O2SAT 97
[2024-04-04 05:00] VITALS: BP 125/65; PULSE 94; RESP 19; TEMP 98.3; O2SAT 91
[2024-04-04 06:12] LABS: Basophils # (auto) 0 10 ^3/uL (0-0.2); Basophils % (auto) 0.2 % (0.0-2.0); Eosinophils # (auto) 0 10 ^3/uL (0-0.8); Hematocrit 37.7 % (41.0-53.0); Hemoglobin 12.5 g/dL (13.5-17.5); Lymphocytes # (auto) 1.1 10 ^3/uL (0.4-5.4); Lymphocytes % (auto) 7.4 % (10.0-50.0); Mean Corpuscular Hemoglobin 28.8 pg (28.0-32.0); Mean Corpuscular Hgb Conc. 33.2 g/dL (32.0-36.0); Mean Corpuscular Volume 86.9 fL (80.0-100.0); Monocytes # (auto) 1.4 10 ^3/uL (0-1.3); Monocytes % (auto) 9.3 % (0.0-12.0); Neutrophils # (auto) 12.3 10 ^3/uL (1.6-8.6); Neutrophils % (auto) 83.1 % (37.0-80.0); Platelet Count (auto) 157 10^3/uL (140-450); Red Blood Cells 4.33 10^6/uL (4.5-5.90); Red Cell Distribution Width 14.3 % (11.8-14.3); White Blood Cell 14.9 10^3/uL (4.4-10.8)
[2024-04-04 06:16] LABS: Alanine Aminotransferase 21 U/L (7-40); Albumin 3.9 g/dL (3.2-4.8); Alkaline Phosphatase 70 U/L (46-116); Anion Gap 7 (5-15); Aspartate Aminotransferase 26 U/L (13-40); BUN/Creatinine Ratio 8.9 (10.0-20.0); Blood Urea Nitrogen 10 mg/dL (9-23); Calcium 9.3 mg/dL (8.7-10.4); Carbon Dioxide 27 mmol/L (20-31); Chloride 106 mmol/L (98-107); Potassium 3.7 mmol/L (3.5-5.1); Sodium 140 mmol/L (136-145); Total Protein 6.3 g/dL (5.7-8.2)
[2024-04-04 06:38] LABS: Bilirubin, Total 1.2 mg/dL (0.2-1.0); Glucose 118 mg/dL (74-106)
[2024-04-04] MEDS: GASTROGRAFIN 120 ML SOL ONE (08:03)
[2024-04-04 08:57] VITALS: BP 124/79; PULSE 98; RESP 18; TEMP 98.3; O2SAT 92
[2024-04-04] MEDS: ACETAMINOPHEN 325 MG TAB PO PRN (09:10)
[2024-04-04 10:00] VITALS: O2SAT 96
[2024-04-04 13:00] VITALS: BP 109/64; PULSE 87; RESP 17; TEMP 97.5; O2SAT 93
[2024-04-04] MEDS ORDERED: AUG875T PO (13:43)
[2024-04-04] MEDS ORDERED: FAMO20TA10 PO (13:43)
[2024-04-04] MEDS ORDERED: ZOFR4T PO (13:43)
[2024-04-04] MEDS ORDERED: SUCR1TAB PO (13:43)
--- NOTE | 2024-04-04 13:56 | DVHDS2 ---
Discharge Summary Date of Admission Apr 02, 2024 at 07:23 Date of Discharge: Apr 04, 2024 Labs/Diagnostic Data: Laboratory Results Test 04/04/24 05:27 04/03/24 06:32 04/02/24 08:02 04/02/24 03:50 White Blood Count 14.9 10^3/uL (4.4-10.8) Red Blood Count 4.33 10^6/uL (4.5-5.90) Hemoglobin 12.5 g/dL (13.5-17.5) Hematocrit 37.7 % (41.0-53.0) Mean Corpuscular Volume 86.9 fL (80.0-100.0) Mean Corpuscular Hemoglobin 28.8 pg (28.0-32.0) Mean Corpuscular Hemoglobin Concent 33.2 g/dL (32.0-36.0) Red Cell Distribution Width 14.3 % (11.8-14.3) Platelet Count 157 10^3/uL (140-450) Mean Platelet Volume 9.1 fL (6.9-10.8) Neutrophils (%) (Auto) 83.1 % (37.0-80.0) Lymphocytes (%) (Auto) 7.4 % (10.0-50.0) Monocytes (%) (Auto) 9.3 % (0.0-12.0) Eosinophils (%) (Auto) 0.0 % (0.0-7.0) Basophils (%) (Auto) 0.2 % (0.0-2.0) Neutrophils # (Auto) 12.3 10 ^3/uL (1.6-8.6) Lymphocytes # (Auto) 1.1 10 ^3/uL (0.4-5.4) Monocytes # (Auto) 1.4 10 ^3/uL (0-1.3) Eosinophils # (Auto) 0 10 ^3/uL (0-0.8) Basophils # (Auto) 0 10 ^3/uL (0-0.2) Nucleated Red Blood Cells 0.0 % Sodium Level 140 mmol/L (136-145) Potassium Level 3.7 mmol/L (3.5-5.1) Chloride Level 106 mmol/L (98-107) Carbon Dioxide Level 27 mmol/L (20-31) Anion Gap 7 (5-15) Blood Urea Nitrogen 10 mg/dL (9-23) Creatinine 1.12 mg/dL (0.700-1.30) Glomerular Filtration Rate Calc 73 mL/min (>90) BUN/Creatinine Ratio 8.9 (10.0-20.0) Serum Glucose 118 mg/dL (74-106) Calcium Level 9.3 mg/dL (8.7-10.4) Total Bilirubin 1.2 mg/dL (0.2-1.0) Aspartate Amino Transferase (AST) 26 U/L (13-40) Alanine Aminotransferase (ALT) 21 U/L (7-40) Alkaline Phosphatase 70 U/L (46-116) Total Protein 6.3 g/dL (5.7-8.2) Albumin 3.9 g/dL (3.2-4.8) Lipase 35 U/L (12-53) D-Dimer, Quantitative 0.29 mg/L FEU (0.0-0.49) Troponin I High Sensitivity 6 ng/L (</=54) Urine Color Yellow (Yellow) Urine Clarity Clear (Clear) Urine pH 6.5 (5.0-9.0) Urine Specific [place] 1.027 (1.001-1.035) Urine Protein Negative (Negative) Urine Ketones Negative (Negative) Urine Blood Negative /uL (Negative) Urine Nitrite Negative (Negative) Urine Bilirubin Negative (Negative) Urine Urobilinogen 2 mg/dL (Negative) Urine Leukocyte Esterase Negative /uL (Negative) Urine RBC 2 /hpf (0 - 3) Urine WBC <1 /hpf (0 - 3) Urine Squamous Epithelial Cells Few /hpf (<5) Urine Bacteria None seen /hpf (None Seen) Urine Glucose Normal mg/dL (Normal) Influenza Type A Antigen Negative (Negative) Influenza Type B Antigen Negative (Negative) SARS-CoV-2 Antigen (Rapid) Negative (NEGATIVE) Test 04/02/24 02:32 Prothrombin Time 10.7 sec (9.3-11.8) Prothrombin Time INR 1.01 (0.9-1.15) Activated Partial Thromboplast Time 27.3 SEC (24.5-34.5) B-Type Natriuretic Peptide 30.12 pg/mL (0-100) Other Laboratory Tests 04/04/24 05:27 Brief Hx & Hospital Course: HPI: 63 yr old male pmh asthma, htn, pna left knee surgery cc here for chest pain patient states that the pain was on his left chest wall it woke him up at 8:00 p.m. last night. He states he was so concerned and came to the ER for evaluation. He states after the pain started he vomited but there was no blood. He states there was a pressure pain on his chest and it radiates to his back. He has no history GA but he stated he was here two days prior to get a cardiac catheterization and it appears everything was fine with the cath results per patient. He was supposed to follow up with Cardiology outpatient in two weeks. Patient states was discharged home. Hospitalization: patient was rales in send discharge for CHF exacerbation within 2 days of discharge patient's starts to develop/ patient presented with nausea and vomiting and abdominal pain. CBC was unremarkable lipase is elevated at 71 troponin was negative glucose was 125 chest x-ray unremarkable CT scan of the abdomen pelvis unremarkable influenza and COVID was negative. Lipase negative. CMP largely benign. CBC on day 2 has white count which is improving. Neutrophilia since admit. Urine has SG 1.027 and urobilinogen positive, no concerns for UTI. . patient on CT abdomen has no acute abnormalities, does fine all granulomas in lungs and coronary artery disease. abdominal ultrasound shows hepatomegaly and gallbladder sludge. Gastrografin small bowel series with normal transit time. Admitted for intractable abdominal pain, acute abdomen ruled out. There is no evidence of acute abdomen, patient is tolerating p.o. and nausea vomiting is resolving. Patient was constipated and was given laxatives resulting in diarrhea. Started on antacids. Bacterial gastroenteritis is still possible and we will need some outpatient antibiotics. Acute etiology is ruled out, patient is stable for outpatient close follow up. Plan developed for discharge as adrien abbott. Diagnosis: gastroenteritis, likely; leukocytosis; intractable abdominal pain, resolving; nausea/vomit resolving; constipation, resolved; diarrhea s/p laxative treatment; PUD possible; Hpylori, possible; acute abdomen ruled out; Discharge plan: - start pepcid 20mg 2x/day for [id number], carafate tablet 2x/day for [id number] - FLD (full liquid diet) x 2 weeks. probiotic (natural yougurt) 2x/day - augmentin 875mg 2x/day for x7 days for possible bacterial gastroenteritis - DC clinic 1 week - repeat cbc to check wbc resolution (to be done by PCP if insurance cannot cover DC clinic) - PCP to follow-up. need hospital dc review. suggest check Hpylori AB and/or Hpylori stool test. PCP to evaluate need for EGD/gi referral. - continue other home medications. return to ED if pain worsens and/or persists. Visitation and planning required 35 minutes Condition at Discharge: Fair Final Diagnosis/Problems List gastroenteritis, likely; leukocytosis; intractable abdominal pain, resolving; nausea/vomit resolving; constipation, resolved; diarrhea s/p laxative treatment; PUD possible; Hpylori, possible; acute abdomen ruled out; Discharge Disposition: Home Discharge Instruct/Medications Diet: See Comment Diet comment: full liquid diet Activity: No Restrictions, As Tolerated Follow Up/Referral: pcp Medications: below Discharge Statement: "Patient was advised to return to the ER or call 911 if any headaches, dizziness, shortness of breath, chest pain, abdominal pain, bleeding, fevers, or worsening of medical condition. Patient was counseled about treatment plan, medications, possible side effects, patientverbalized understanding. All questions were answered to the best of my ability. This discharge took greater then 30 minutes in planning, reviewing documentation, counseling the patient, and discussing with other team members." ASSESSMENT ASSESSMENT Assessment gastroenteritis, likely; leukocytosis; intractable abdominal pain, resolving; nausea/vomit resolving; constipation, resolved; diarrhea s/p laxative treatment; PUD possible; Hpylori, possible; acute abdomen ruled out; Date of Service: Apr 04, 2024 Billing Provider: ZI ROSALES MD Common Visit Codes: 11092-JUK/OBS DISCH DAY >30min ZI ROSALES MD Apr 04, 2024 13:56
[2024-04-04 15:03] VITALS: BP 124/79; PULSE 98; TEMP 36.4
== END 2024-04-04 15:40 | disposition home or self-care (01) | DRG 371 ==
LOC: ER 02:25 → TELE 07:23 → TELE-EAST 18:38 → EAST 04-03 23:45
PROVIDERS: ADMIT Student in an Organized Health Care Education/Training Program; ATTEND Student in an Organized Health Care Education/Training Program
DX: A04.9 Bacterial intestinal infection, unspecified (principal); J96.01 Acute respiratory failure with hypoxia; K85.90 Acute pancreatitis without necrosis or infection, unspecified; J45.901 Unspecified asthma with (acute) exacerbation; I50.32 Chronic diastolic (congestive) heart failure; K27.9 Peptic ulcer, site unspecified, unspecified as acute or chronic, without hemorrhage or perforation; I11.0 Hypertensive heart disease with heart failure; Z20.822 Contact with and (suspected) exposure to COVID-19; J20.9 Acute bronchitis, unspecified; E88.810 Metabolic syndrome; I25.10 Atherosclerotic heart disease of native coronary artery without angina pectoris; E66.01 Morbid (severe) obesity due to excess calories; K59.00 Constipation, unspecified; T47.4X5A Adverse effect of other laxatives, initial encounter; Z79.899 Other long term (current) drug therapy; Z82.49 Family history of ischemic heart disease and other diseases of the circulatory system; Y92.89 Other specified places as the place of occurrence of the external cause; Z68.39 Body mass index [BMI] 39.0-39.9, adult
CPT/HCPCS: 36415; 71045; 74176; 74250; 76700; 80048; 80053; 81001; 83690; 83880; 84484; 85025; 85379; 85610; 85730; 87045; 87081; 87426; 87427; 87804; 93005; 94640; 96374; 96375; G0378; J2405; J2470; J3490

== ENCOUNTER 2024-04-06 11:37 | Inpatient (IN) | payer MEDICAID ==
[~2024-04-06] VITALS: Ht 190.5 cm; Wt 137.2 kg
[~2024-04-06 11:37] MED LIST changes: +AUG875T PO; +FAMO20TA10 PO; +FURO20TA3 PO; -SEMA2.4I SC; +SUCR1TAB PO; +ZOFR4T PO
[2024-04-06 12:43] LABS: Basophils # (auto) 0 10 ^3/uL (0-0.2); Basophils % (auto) 0.3 % (0.0-2.0); Eosinophils # (auto) 0 10 ^3/uL (0-0.8); Eosinophils % (auto) 0.3 % (0.0-7.0); Hematocrit 38.8 % (41.0-53.0); Lymphocytes # (auto) 1.1 10 ^3/uL (0.4-5.4); Lymphocytes % (auto) 9.8 % (10.0-50.0); Mean Corpuscular Hemoglobin 28.8 pg (28.0-32.0); Mean Corpuscular Hgb Conc. 33.4 g/dL (32.0-36.0); Mean Corpuscular Volume 86.3 fL (80.0-100.0); Monocytes # (auto) 1.1 10 ^3/uL (0-1.3); Monocytes % (auto) 9.5 % (0.0-12.0); Neutrophils # (auto) 9.1 10 ^3/uL (1.6-8.6); Neutrophils % (auto) 80.1 % (37.0-80.0); Nucleated Red Blood Cells % 0.1 %; Platelet Count (auto) 208 10^3/uL (140-450); Red Cell Distribution Width 14.1 % (11.8-14.3); White Blood Cell 11.4 10^3/uL (4.4-10.8)
[2024-04-06 13:28] LABS: Anion Gap 7 (5-15); BUN/Creatinine Ratio 7.1 (10.0-20.0); Bilirubin, Total 0.9 mg/dL (0.2-1.0); Chloride 103 mmol/L (98-107); Glucose 103 mg/dL (74-106); Potassium 3.8 mmol/L (3.5-5.1); Sodium 138 mmol/L (136-145)
[2024-04-06 13:35] LABS: Alanine Aminotransferase 50 U/L (7-40); Albumin 4.2 g/dL (3.2-4.8); Alkaline Phosphatase 106 U/L (46-116); Aspartate Aminotransferase 48 U/L (13-40); Blood Urea Nitrogen 8 mg/dL (9-23); Calcium 9.6 mg/dL (8.7-10.4); Carbon Dioxide 28 mmol/L (20-31); Lipase 55 U/L (12-53)
--- NOTE | 2024-04-06 14:40 | ED.PDOC ---
GI ASSESSMENT HPI Comments 63 y.o male with PMHx of HTN and hyperlipidemia, presents to the ED for a chief complaint of RUQ pain associated with diarrhea. Patient reports coming in to this ED on 03/24/24 for RUQ pain, was admitted up until 04/02/24, discharged and came back 1-2 days later and admitted for reassessment. Patient reports he was told he needed a cholecystectomy but were awaiting for his new insurance to establish. Patient reports having diarrhea since 04/02/24 as well. Patient has constant sharp, non radiating pain that has no modifying factors. He denies any nausea, vomiting, fever, chills. Chief Complaint: Abdominal Pain Time Seen by MD: 14:27 Primary Care Provider: ISABEL Reviewed Notes: Nurses Notes, Medications, Allergies Allergies: Coded Allergies: NO KNOWN ALLERGIES (Unverified , 06/04/21) Home Meds Active Scripts Amoxicillin & Pot Clavulanate (AUGMENTIN TABLET) 875 Mg Tb, 875 MG PO BID for 7 Days, #14 TAB 0 Refills Prov:ZI ROSALES MD 04/04/24 Ondansetron Odt 4MG Tab (ZOFRAN PO) 4 Mg Tb, 4 MG PO TIDPRN PRN for 7 Days, #21 TAB 0 Refills ODT TAB-DISSOLVE IN MOUTH, THEN SWALLOW Prov:ZI ROSALES MD 04/04/24 Famotidine (PEPCID TABLET) 20 Mg Tb, 1 TAB PO BID for 30 Days, #60 TAB 0 Refills Prov:ZI ROSALES MD 04/04/24 Sucralfate (Sucralfate) 1 Gm Tab, 1 GM PO BID for 30 Days, #60 TAB 0 Refills Prov:ZI ROSALES MD 04/04/24 Atorvastatin Calcium (ATORVASTATIN CALCIUM) 40 Mg Tab, 40 MG PO DAILY for 90 Days, #90 TAB Prov:SAMARIA HALL MD 03/30/24 Metoprolol Succinate (Metoprolol Succinate Er) 50 Mg Tab, 50 MG PO DAILY for 90 Days, #90 TAB Prov:SAMARIA HALL MD 03/30/24 Aspirin (Aspirin Low Dose) 81 Mg Tab, 81 MG PO DAILY for 90 Days, #90 TAB Prov:SAMARIA HALL MD 03/30/24 Reported Medications Furosemide (Furosemide) 20 Mg Tab, 20 MG PO DAILY, MG 04/03/24 Baclofen (Baclofen) 20 Mg Tab, 1 TAB PO QPM for 90 Days, #90 03/25/24 Discontinued Reported Medications Semaglutide (Wegovy) 2.4 Mg/0.75 Ml Inj, 1 INJ SC QWEEKLY for 28 Days, #3 INJECT 0.75 MILILITERS SUBCUTANEOUSLY EVERY WEEK 03/25/24 Atenolol (Atenolol) 50 Mg Tab, 1 TAB PO DAILY for 15 Days, #15 03/25/24 Information Source: Patient Mode of Arrival: Ambulatory Timing: Weeks Duration: Since onset Quality: Sharp Vomitus: None Stool: Loose Severity: Moderate Recent: None Recent Hx of: Other Pain Location: RUQ Modifying Factors: Nothing Associated sign and symptoms: Diarrhea, Abdominal Pain Past Medical History PAST MEDICAL HISTORY: Asthma, High Lipids, HTN Surgical History: Denies all surgeries Family History Family History: Reviewed,noncontributory to illness, No family hx of Cancer, No family hx of DM, No family hx of Heart jenny, No family hx of HTN, No family hx ofKidney jenny, No family hx of Liver jenny, No family hx of Lung jenny, No family hx of Stroke Social History Smoker: Non-Smoker, Secondhand Alcohol: Denies ETOH Use Drugs: Denies Drug Use Lives In: Home Constitutional: denies: chills, diaphoresis, fatigue, fever, malaise, sweats, weakness, others EENTM: denies: blurred vision, double vision, ear bleeding, ear discharge, ear drainage, ear pain, ear ringing, eye pain, eye redness, hearing loss, mouth pain, mouth swelling, nasal discharge, nose bleeding, nose congestion, nose pain, photophobia, tearing, throat pain, throat swelling, voice changes, others Respiratory: denies: cough, hemoptysis, orthopnea, SOB at rest, shortness of breath, SOB with excertion, stridor, wheezing, others Cardiovascular: denies: chest pain, dizzy spells, diaphoresis, Dyspnea on exertion, edema, irregular heart beat, left arm pain, lightheadedness, palpitations, PND, syncope, others Gastrointestinal: reports: abdominal pain, diarrhea; denies: abdomen distended, blood streaked bowels, constipated, dysphagia, difficulty swallowing, hematemesis, melena, nausea, poor appetite, poor fluid intake, rectal bleeding, rectal pain, vomiting, others Genitourinary: denies: burning, dysuria, flank pain, frequency, hematuria, incontinence, penile discharge, penile sore, pain, testicle pain, testicle swelling, urgency, others Neurological: denies: dizziness, fainting, headache, left sided numbness, left sided weakness, numbness, paresthesia, pre-existing deficit, right sided num bness, right sided weakness, seizure, speech problems, tingling, tremors, weakness, others Musculoskeletal: denies: back pain, gout, joint pain, joint swelling, muscle pain, muscle stiffness, neck pain, others Integumetry: denies: bruises, change in color, change in hair/nails, dryness, laceration, lesions, lumps, rash, wounds, others Allergic/Immunocompromised: denies: Difficulty Healing, Frequent Infections, Hives, Itching, others Hematologic/Lymphatic: denies: anemia, blood clots, easy bleeding, easy bruising, swollen glands, others Endocrine: denies: excessive hunger, excessive sweating, excessive thirst, excessive urination, flushing, intolerance to cold, intolerance to heat, unexplained weight gain, unexplained weight loss, others Psychiatric: denies: anxiety, bipolar disorder, depression, hopeless, panic disorder, schizophrenia, sleepless, suicidal, others All Other Systems: Reviewed and Negative Physical Exam General Appearance: No Apparent Distress, Normal HEENT: Normal ENT Inspection, Pharynx Normal, TMs Normal Neck: Full Range of Motion, Non-Tender, Normal, Normal Inspection Respiratory: Chest Non-Tender, Lungs Clear, No Accessory Muscle Use, No Respiratory Distress, Normal Breath Sounds Cardiovascular: No Edema, No JVD, No Murmur, No Gallop, Normal Peripheral Pulses, Regular Rate/Rhythm Breast Exam: Deferred Gastrointestinal: RUQ, Tenderness Genitalia: Deferred Pelvic: Deferred Rectal: Deferred Extremities: No calf tenderness, Normal capillary refill, Normal inspection, Normal range of motion, Non-tender, No pedal edema Musculoskeletal : Apperance: Normal Neurologic: Alert, endless steamer tender II-XII nml as Tested, No Motor Deficits, Normal Affect, Normal Mood, No Sensory Deficits Cerebellar Function: Normal Reflexes: Normal Skin: Dry, Normal Color, Warm Lymphatic: No Adenopathy Was a procedure done? Was a procedure done?: No GI differential Dx Differential Diagnosis: Cholangitis, Cholecystitis, Diverticular disease, Electrolyte Imbalance, Bacterial, Viral X-Ray, Labs, Meds, VS Vital Signs Date Time Temp Pulse Resp B/P (MAP) Pulse Ox O2 Delivery O2 Flow Rate FiO2 04/06/24 12:02 97.8 84 18 118/75 (89) 95 Lab Test 04/06/24 12:29 Range/Units White Blood Count 11.4 H 4.4-10.8 10^3/uL Red Blood Count 4.50 4.5-5.90 10^6/uL Hemoglobin 13.0 L 13.5-17.5 g/dL Hematocrit 38.8 L 41.0-53.0 % Mean Corpuscular Volume 86.3 80.0-100.0 fL Mean Corpuscular Hemoglobin 28.8 28.0-32.0 pg Mean Corpuscular Hemoglobin Concent 33.4 32.0-36.0 g/dL Red Cell Distribution Width 14.1 11.8-14.3 % Platelet Count 208 140-450 10^3/uL Mean Platelet Volume 8.3 6.9-10.8 fL Neutrophils (%) (Auto) 80.1 H 37.0-80.0 % Lymphocytes (%) (Auto) 9.8 L 10.0-50.0 % Monocytes (%) (Auto) 9.5 0.0-12.0 % Eosinophils (%) (Auto) 0.3 0.0-7.0 % Basophils (%) (Auto) 0.3 0.0-2.0 % Neutrophils # (Auto) 9.1 H 1.6-8.6 10 ^3/uL Lymphocytes # (Auto) 1.1 0.4-5.4 10 ^3/uL Monocytes # (Auto) 1.1 0-1.3 10 ^3/uL Eosinophils # (Auto) 0 0-0.8 10 ^3/uL Basophils # (Auto) 0 0-0.2 10 ^3/uL Nucleated Red Blood Cells 0.1 % Sodium Level 138 136-145 mmol/L Potassium Level 3.8 3.5-5.1 mmol/L Chloride Level 103 98-107 mmol/L Carbon Dioxide Level 28 20-31 mmol/L Anion Gap 7 5-15 Blood Urea Nitrogen 8 L 9-23 mg/dL Creatinine 1.12 0.700-1.30 mg/dL Glomerular Filtration Rate Calc 73 >90 mL/min BUN/Creatinine Ratio 7.1 L 10.0-20.0 Serum Glucose 103 74-106 mg/dL Calcium Level 9.6 8.7-10.4 mg/dL Total Bilirubin 0.9 0.2-1.0 mg/dL Aspartate Amino Transferase (AST) 48 H 13-40 U/L Alanine Aminotransferase (ALT) 50 H 7-40 U/L Alkaline Phosphatase 106 46-116 U/L Total Protein 7.0 5.7-8.2 g/dL Albumin 4.2 3.2-4.8 g/dL Lipase 55 H 12-53 U/L X-Ray, Labs, Meds, VS Comment Patient will be admitted for cholelithiasis, uncontrollable abdominal pain Recommend general surgery consult Patient was discharged home on April 02, he was had no relief in his pain since discharge. States the pain in the right upper quadrant has only been getting worse. Time of 1ST Reevaluation: 14:36 Reevaluation 1ST: Unchanged Patient Education/Counseling: Diagnosis, Treatment, Prognosis Family Education/Counseling: No Family Present Departure 1 Departure Time of Disposition: 16:22 Impression: Primary Impression: Cholelithiasis Qualified Codes: K80.20 - Calculus of gallbladder without cholecystitis without obstruction Additional Impression: Abdominal pain Qualified Codes: R10.11 - Right upper quadrant pain Disposition: ADMITTED INPATIENT Condition: Stable Critical Care Note Critical Care Time?: No Stability Stability form required: No I personally scribed for CHEL[facility]Y SYKES [facility] on 04/06/24 at 14:40. Electronically submitted by Kasia Bernal ([facility]). CHELSEY SYKES Apr 06, 2024 14:40
--- NOTE | 2024-04-06 15:54 | DVH ---
EXAM: US GALLBLADDER CLINICAL HISTORY: RUQ pain TECHNIQUE: Grayscale and limited color flow doppler ultrasound of the right upper quadrant is perfor med. COMPARISON: None Findings: Liver measures 15.4 cm in length with heterogeneous echotexture and contour. No evidence of focal hep atic lesions or intra- or extrahepatic ductal dilatation. Common bile duct not visualized. Normal hep atopedal flow noted within the portal vein. No perihepatic free fluid is noted. Gallbladder wall thickness measuring 0.6 cm. There is biliary sludge. No evidence of shadowing calcu li or pericholecystic fluid. Negative sonographic Lott's sign. Pancreas not well-visualized due to overlying bowel gas. Right kidney measures 11.9 cm with normal contours, echotexture and cortical thickness. No evidence o f hydronephrosis, calculi, cystic or solid renal lesions. Partially visualized inferior vena cava unremarkable. Impression: 1. No evidence of acute right upper quadrant abnormalities. 2. Coarsened hepatic echotexture, nonspecific. 3. Thickened gallbladder wall with biliary sludge, nonspecific and may be due to hepatic disease. Con quarter lining smoother a nuclear medicine hepatobiliary scan as clinically indicated.
[2024-04-06 17:10] LABS: Urine Bacteria None Seen /hpf (None Seen)
[2024-04-06 17:33] VITALS: BP 135/70; PULSE 84; RESP 16; TEMP 98.8; O2SAT 94
[2024-04-06 17:37] LABS: Urine Blood Negative /uL (Negative); Urine Clarity Clear (Clear); Urine Color Light-Yellow (Yellow); Urine Mucus FEW (None Seen); Urine Protein, UAD Negative (Negative); Urine Specific Gravity 1.013 (1.001-1.035); Urine Squamous Epithelial Cell None Seen /hpf (<5); Urine Urobilinogen Normal (Negative); Urine WBC <1 /hpf (0 - 3); Urine pH 5.5 (5.0-9.0)
[2024-04-06] MEDS ORDERED: ONDANSETRON HCL 4 MG/2 ML VIAL IV PRN (19:00)
[2024-04-06] MEDS ORDERED: HYDROcodone-ACET 5/325MG TAB PO PRN (19:00)
[2024-04-06] MEDS: PANTOPRAZOLE 40 MG/10 ML VIAL INJ IV ONE (19:00)
[2024-04-06] MEDS ORDERED: MORPHINE SULFATE INJ 2 MG/ml SYRG IV PRN (19:00)
[2024-04-06] MEDS ORDERED: ACETAMINOPHEN 325 MG TAB PO PRN (19:00)
[2024-04-06 19:40] VITALS: BP 156/83; PULSE 94; RESP 18; TEMP 97.8; O2SAT 96
[2024-04-06 22:02] VITALS: BP 156/83; PULSE 94; RESP 18; TEMP 97.8; O2SAT 96
--- NOTE | 2024-04-07 00:47 | DVHHP2 ---
History of Present Illness Reason for Visit: Abdominal pain History of Present Illness 63-year-old male presents for evaluation of abdominal pain. The patient reports a two week history of worsening right upper quadrant abdominal pain. He was seen by Dr. Bobo his office yesterday who recommended to be seen in the emergency department for possible admission for cholecystectomy. He reports sharp right upper quadrant abdominal pain that radiates to his epigastric region. Reports occasional nausea. He has been having watery diarrhea as well. No fever or chills. No other acute complaints reported. Past Medical History Hypertension, dyslipidemia, asthma Past Surgical History Denies Family History Noncontributory Smoke: No ALCOHOL: none Drugs: None Lives: with Family Review of Systems Review of Systems Review of systems are currently negative otherwise addressed in HPI. Allergies: Coded Allergies: NO KNOWN ALLERGIES (Unverified , 06/04/21) Medications Current Medications Medications Dose Ordered Sig/Pilar Route Start Time Stop Time Status Last Admin Dose Admin Acetaminophen/ Hydrocodone Bitart 1 tab Q4HP PRN PO 04/06/24 19:00 Ondansetron HCl 4 mg Q4HP PRN IV 04/06/24 19:00 Acetaminophen 650 mg Q6HP PRN PO 04/06/24 19:00 Morphine Sulfate 2 mg Q6HPRN PRN IV 04/06/24 19:00 Ceftriaxone Sodium 50 ml @ 100 mls/hr DAILY@09 IV 04/07/24 09:00 Pantoprazole Sodium 40 mg DAILY IV 04/07/24 10:00 Exam Vital Signs Vital Signs Date Time Temp Pulse Resp B/P (MAP) Pulse Ox O2 Delivery O2 Flow Rate FiO2 04/06/24 22:07 Room Air* 0 21 04/06/24 22:02 97.8 94 18 156/83 (107) 96 97.8 Exam Gen: 63-year-old in mild distress Skin: Warm, dry, normal color and texture, no rash. HEENT: Normocephalic atraumatic, mucous membranes moist and pink. Neck: Cervical and supraclavicular nodes normal without enlargement, trachea is midline, thyroid gland is normal without masses. Pulmonary: Clear to auscultation and percussion bilaterally. Cardiac: Regular rate and rhythm. No murmur Abdomen: Soft, right upper quadrant tenderness, nondistended, bowel sounds present all 4 quadrants, no guarding, no rigidity, no organomegaly. Extremities: No cyanosis, clubbing, no edema Neuro: Cranial nerves II through XII grossly intact, normal affect and speech, no focal motor deficits. Labs/Xrays ORDERING PHYSICIAN: CHELSEY SYKES PROCEDURE(s): GBUS - GALLBLADDER REASON: RUQ pain ORDER NUMBER(s): [id number], ACCESSION NUMBER(s): [id number] EXAM: US GALLBLADDER CLINICAL HISTORY: RUQ pain TECHNIQUE: Grayscale and limited color flow doppler ultrasound of the right upper quadrant is performed. COMPARISON: None Findings: Liver measures 15.4 cm in length with heterogeneous echotexture and contour. No evidence of focal hepatic lesions or intra- or extrahepatic ductal dilatation. Common bile duct not visualized. Normal hepatopedal flow noted within the portal vein. No perihepatic free fluid is noted. Gallbladder wall thickness measuring 0.6 cm. There is biliary sludge. No evidence of shadowing calculi or pericholecystic fluid. Negative sonographic Lott's sign. Pancreas not well-visualized due to overlying bowel gas. Right kidney measures 11.9 cm with normal contours, echotexture and cortical thickness. No evidence of hydronephrosis, calculi, cystic or solid renal lesions. Partially visualized inferior vena cava unremarkable. Impression: 1. No evidence of acute right upper quadrant abnormalities. 2. Coarsened hepatic echotexture, nonspecific. 3. Thickened gallbladder wall with biliary sludge, nonspecific and may be due to hepatic disease. Consider a nuclear medicine hepatobiliary scan as clinically indicated. Labs Test 04/06/24 17:00 04/06/24 12:29 Range/Units Urine Color Light-yellow Yellow Urine Clarity Clear Clear Urine pH 5.5 5.0-9.0 Urine Specific [place] 1.013 1.001-1.035 Urine Protein Negative Negative Urine Ketones Negative Negative Urine Blood Negative Negative /uL Urine Nitrite Negative Negative Urine Bilirubin Negative Negative Urine Urobilinogen Normal Negative mg/dL Urine Leukocyte Esterase Negative Negative /uL Urine RBC None seen 0 - 3 /hpf Urine WBC <1 0 - 3 /hpf Urine Squamous Epithelial Cells None seen <5 /hpf Urine Bacteria None seen None Seen /hpf Urine Mucus Few None Seen Urine Glucose Normal Normal mg/dL White Blood Count 11.4 H 4.4-10.8 10^3/uL Red Blood Count 4.50 4.5-5.90 10^6/uL Hemoglobin 13.0 L 13.5-17.5 g/dL Hematocrit 38.8 L 41.0-53.0 % Mean Corpuscular Volume 86.3 80.0-100.0 fL Mean Corpuscular Hemoglobin 28.8 28.0-32.0 pg Mean Corpuscular Hemoglobin Concent 33.4 32.0-36.0 g/dL Red Cell Distribution Width 14.1 11.8-14.3 % Platelet Count 208 140-450 10^3/uL Mean Platelet Volume 8.3 6.9-10.8 fL Neutrophils (%) (Auto) 80.1 H 37.0-80.0 % Lymphocytes (%) (Auto) 9.8 L 10.0-50.0 % Monocytes (%) (Auto) 9.5 0.0-12.0 % Eosinophils (%) (Auto) 0.3 0.0-7.0 % Basophils (%) (Auto) 0.3 0.0-2.0 % Neutrophils # (Auto) 9.1 H 1.6-8.6 10 ^3/uL Lymphocytes # (Auto) 1.1 0.4-5.4 10 ^3/uL Monocytes # (Auto) 1.1 0-1.3 10 ^3/uL Eosinophils # (Auto) 0 0-0.8 10 ^3/uL Basophils # (Auto) 0 0-0.2 10 ^3/uL Nucleated Red Blood Cells 0.1 % Sodium Level 138 136-145 mmol/L Potassium Level 3.8 3.5-5.1 mmol/L Chloride Level 103 98-107 mmol/L Carbon Dioxide Level 28 20-31 mmol/L Anion Gap 7 5-15 Blood Urea Nitrogen 8 L 9-23 mg/dL Creatinine 1.12 0.700-1.30 mg/dL Glomerular Filtration Rate Calc 73 >90 mL/min BUN/Creatinine Ratio 7.1 L 10.0-20.0 Serum Glucose 103 74-106 mg/dL Calcium Level 9.6 8.7-10.4 mg/dL Total Bilirubin 0.9 0.2-1.0 mg/dL Aspartate Amino Transferase (AST) 48 H 13-40 U/L Alanine Aminotransferase (ALT) 50 H 7-40 U/L Alkaline Phosphatase 106 46-116 U/L Total Protein 7.0 5.7-8.2 g/dL Albumin 4.2 3.2-4.8 g/dL Lipase 55 H 12-53 U/L Assessment/Plan Assessment/Plan Assessment Acute abdominal pain Rule out cholecystitis Mild transaminitis Plan Admit the patient to Med surge to the hospitalist Surgical consultation HIDA scan pending Rocephin Pain management Continue treatment per orders. Plan discussed with: Patient My Orders Orders - RASHI QUINTANA Procedure Category Date Status Time Sodium Chloride 0.9% PHA 04/06/24 In Process 19:00 Admit ADMIT 04/06/24 Transmitted 18:54 Hydrocodone-Acet PHA 04/06/24 In Process 5/325mg Tab ([place] 19:00 Ondansetron Hcl PHA 04/06/24 In Process (Zofran) 19:00 Complete Blood Count LAB 04/07/24 Logged 04:00 Comprehensive LAB 04/07/24 Logged Metabolic Panel 04:00 Npo (Nothing By DIET 04/07/24 Transmitted Mouth) Diet Breakfast Condition: Stable CELI 04/06/24 In Process 18:54 Acetaminophen Tablet PHA 04/06/24 In Process (Tylenol Tablet) 19:00 Bedrest With Bathroom CELI 04/06/24 In Process Privileg 18:54 Morphine Sulfate PHA 04/06/24 In Process Injection 19:00 Ceftriaxone 1gm/50ml PHA 04/07/24 In Process D5w (Rocephin) 09:00 Pantoprazole PHA 04/07/24 In Process (Protonix) 10:00 Mrsa Screen JAZ 04/06/24 Uncollected 22:00 * Surgical Consult CONS 04/07/24 Verified 00:42 Date of Service: Apr 06, 2024 Billing Provider: RASHI QUINTANA Common Visit Codes: [id number] INP/OBS CARE (HIGH) RASHI QUINTANA Apr 07, 2024 00:47
[2024-04-07 01:00] VITALS: BP 130/75; PULSE 82; RESP 18; TEMP 97.6; O2SAT 92
[2024-04-07 05:00] VITALS: BP 115/62; PULSE 70; RESP 18; TEMP 98.3; O2SAT 100
[2024-04-07] MEDS: SODIUM CHLORIDE 0.9% 1,000 ML IV ONE (06:00)
[2024-04-07 06:25] LABS: Basophils # (auto) 0 10 ^3/uL (0-0.2); Basophils % (auto) 0.3 % (0.0-2.0); Eosinophils # (auto) 0.1 10 ^3/uL (0-0.8); Eosinophils % (auto) 0.9 % (0.0-7.0); Hematocrit 34.5 % (41.0-53.0); Hemoglobin 11.6 g/dL (13.5-17.5); Lymphocytes # (auto) 1.1 10 ^3/uL (0.4-5.4); Mean Corpuscular Hemoglobin 29.1 pg (28.0-32.0); Mean Corpuscular Hgb Conc. 33.4 g/dL (32.0-36.0); Monocytes # (auto) 1.2 10 ^3/uL (0-1.3); Monocytes % (auto) 12.1 % (0.0-12.0); Neutrophils # (auto) 7.8 10 ^3/uL (1.6-8.6); Neutrophils % (auto) 75.7 % (37.0-80.0); Platelet Count (auto) 184 10^3/uL (140-450); Red Blood Cells 3.97 10^6/uL (4.5-5.90); Red Cell Distribution Width 14.1 % (11.8-14.3); White Blood Cell 10.2 10^3/uL (4.4-10.8)
[2024-04-07 06:29] LABS: Albumin 3.9 g/dL (3.2-4.8); Alkaline Phosphatase 108 U/L (46-116); Anion Gap 11 (5-15); Aspartate Aminotransferase 38 U/L (13-40); BUN/Creatinine Ratio 7.6 (10.0-20.0); Bilirubin, Total 0.9 mg/dL (0.2-1.0); Calcium 9.3 mg/dL (8.7-10.4); Carbon Dioxide 25 mmol/L (20-31); Chloride 102 mmol/L (98-107); Glucose 95 mg/dL (74-106); Sodium 138 mmol/L (136-145); Total Protein 6.4 g/dL (5.7-8.2)
[2024-04-07 06:32] LABS: Alanine Aminotransferase 47 U/L (7-40); Blood Urea Nitrogen 9 mg/dL (9-23); Potassium 3.4 mmol/L (3.5-5.1)
[2024-04-07 08:00] VITALS: PULSE 84; RESP 18; O2SAT 93
[2024-04-07 09:00] VITALS: BP 144/75; PULSE 84; RESP 18; TEMP 98.5; O2SAT 93
[2024-04-07] MEDS: cefTRIAXone 1GM/50ML D5W 50 ML IV SCH (10:07)
[2024-04-07] MEDS: PANTOPRAZOLE 40 MG/10 ML VIAL INJ IV SCH (10:07)
[2024-04-07 13:00] VITALS: BP 144/74; PULSE 87; RESP 19; TEMP 98; O2SAT 93
[2024-04-07] MEDS ORDERED: LEVO500T91 PO (14:49)
[2024-04-07] MEDS ORDERED: METR-344 PO (14:49)
--- NOTE | 2024-04-07 14:52 | DVHDS2 ---
Discharge Summary Date of Admission Apr 06, 2024 at 18:54 Date of Discharge: Apr 07, 2024 Labs/Diagnostic Data: Laboratory Results Test 04/07/24 05:10 04/06/24 17:00 04/06/24 12:29 White Blood Count 10.2 10^3/uL (4.4-10.8) Red Blood Count 3.97 10^6/uL (4.5-5.90) Hemoglobin 11.6 g/dL (13.5-17.5) Hematocrit 34.5 % (41.0-53.0) Mean Corpuscular Volume 87.0 fL (80.0-100.0) Mean Corpuscular Hemoglobin 29.1 pg (28.0-32.0) Mean Corpuscular Hemoglobin Concent 33.4 g/dL (32.0-36.0) Red Cell Distribution Width 14.1 % (11.8-14.3) Platelet Count 184 10^3/uL (140-450) Mean Platelet Volume 8.7 fL (6.9-10.8) Neutrophils (%) (Auto) 75.7 % (37.0-80.0) Lymphocytes (%) (Auto) 11.0 % (10.0-50.0) Monocytes (%) (Auto) 12.1 % (0.0-12.0) Eosinophils (%) (Auto) 0.9 % (0.0-7.0) Basophils (%) (Auto) 0.3 % (0.0-2.0) Neutrophils # (Auto) 7.8 10 ^3/uL (1.6-8.6) Lymphocytes # (Auto) 1.1 10 ^3/uL (0.4-5.4) Monocytes # (Auto) 1.2 10 ^3/uL (0-1.3) Eosinophils # (Auto) 0.1 10 ^3/uL (0-0.8) Basophils # (Auto) 0 10 ^3/uL (0-0.2) Nucleated Red Blood Cells 0.0 % Sodium Level 138 mmol/L (136-145) Potassium Level 3.4 mmol/L (3.5-5.1) Chloride Level 102 mmol/L (98-107) Carbon Dioxide Level 25 mmol/L (20-31) Anion Gap 11 (5-15) Blood Urea Nitrogen 9 mg/dL (9-23) Creatinine 1.18 mg/dL (0.700-1.30) Glomerular Filtration Rate Calc 69 mL/min (>90) BUN/Creatinine Ratio 7.6 (10.0-20.0) Serum Glucose 95 mg/dL (74-106) Calcium Level 9.3 mg/dL (8.7-10.4) Total Bilirubin 0.9 mg/dL (0.2-1.0) Aspartate Amino Transferase (AST) 38 U/L (13-40) Alanine Aminotransferase (ALT) 47 U/L (7-40) Alkaline Phosphatase 108 U/L (46-116) Total Protein 6.4 g/dL (5.7-8.2) Albumin 3.9 g/dL (3.2-4.8) Urine Color Light-yellow (Yellow) Urine Clarity Clear (Clear) Urine pH 5.5 (5.0-9.0) Urine Specific [place] 1.013 (1.001-1.035) Urine Protein Negative (Negative) Urine Ketones Negative (Negative) Urine Blood Negative /uL (Negative) Urine Nitrite Negative (Negative) Urine Bilirubin Negative (Negative) Urine Urobilinogen Normal mg/dL (Negative) Urine Leukocyte Esterase Negative /uL (Negative) Urine RBC None seen /hpf (0 - 3) Urine WBC <1 /hpf (0 - 3) Urine Squamous Epithelial Cells None seen /hpf (<5) Urine Bacteria None seen /hpf (None Seen) Urine Mucus Few (None Seen) Urine Glucose Normal mg/dL (Normal) Lipase 55 U/L (12-53) Other Laboratory Tests 04/07/24 05:10 Brief Hx & Hospital Course: 63-year-old male presents for evaluation of abdominal pain. The patient reports a two week history of worsening right upper quadrant abdominal pain. Patient was admitted for Acute Cholecystitis. Patient reports his pain has resolved, does NOT want any surgery. Patient will be discharged home with Dequan to see surgery clinic as outpatient. Condition at Discharge: Poor Final Diagnosis/Problems List Acute Cholecystitis Discharge Disposition: Home Discharge Instruct/Medications Diet: See Comment Diet comment: Low Fat, FULL LIQUID Activity: Light activity Follow Up/Referral: Surgery Clinic Medications: Levaquin and Flagyl Discharge Statement: "Patient was advised to return to the ER or call 911 if any headaches, dizziness, shortness of breath, chest pain, abdominal pain, bleeding, fevers, or worsening of medical condition. Patient was counseled about treatment plan, medications, possible side effects, patientverbalized understanding. All questions were answered to the best of my ability. This discharge took greater then 30 minutes in planning, reviewing documentation, counseling the patient, and discussing with other team members." ASSESSMENT ASSESSMENT Assessment Date of Service: Apr 07, 2024 Billing Provider: PADMA LOVE MD Common Visit Codes: [id number] DISCH DAY <30MIN PADMA LOVE MD Apr 07, 2024 14:52
== END 2024-04-07 16:55 | disposition home or self-care (01) | DRG 446 ==
LOC: ER 11:39 → OVERFLOW 18:54 → WEST WING 18:58
PROVIDERS: ADMIT Nurse Practitioner; ATTEND Internal Medicine
DX: K80.00 Calculus of gallbladder with acute cholecystitis without obstruction (principal); E78.5 Hyperlipidemia, unspecified; I10 Essential (primary) hypertension; J45.909 Unspecified asthma, uncomplicated; R74.01 Elevation of levels of liver transaminase levels
CPT/HCPCS: 36415; 76705; 80053; 81001; 83690; 85025; G0378; J2470

== ENCOUNTER 2024-10-12 06:20 | Inpatient (IN) | payer MEDICAID ==
[2024-10-09 10:20] LABS: Urine Protein, UAD Negative (Negative)
[2024-10-09 10:28] LABS: Alanine Aminotransferase 23 U/L (7-40); Albumin 4.6 g/dL (3.2-4.8); Alkaline Phosphatase 68 U/L (46-116); Anion Gap 7 (5-15); BUN/Creatinine Ratio 13.9 (10.0-20.0); Blood Urea Nitrogen 16 mg/dL (9-23); Calcium 9.8 mg/dL (8.7-10.4); Carbon Dioxide 27 mmol/L (20-31); Chloride 104 mmol/L (98-107); Glucose 100 mg/dL (74-106); INR 0.97 (0.9-1.15); Partial Thromboplastin Time 26.8 SEC (24.5-34.5); Potassium 4.3 mmol/L (3.5-5.1); Prothrombin Time 10.3 sec (9.3-11.8); Sodium 138 mmol/L (136-145); Total Protein 6.9 g/dL (5.7-8.2)
[2024-10-09 10:29] LABS: Bilirubin, Total 0.8 mg/dL (0.2-1.0)
[2024-10-09 10:51] LABS: Hematocrit 43.9 % (41.0-53.0); Hemoglobin 14.8 g/dL (13.5-17.5); Mean Corpuscular Hemoglobin 29.3 pg (28.0-32.0); Mean Corpuscular Volume 86.6 fL (80.0-100.0); Nucleated Red Blood Cells % 0.1 %
[2024-10-12] VITALS (21 sets, daily range): BP systolic 113–148; BP diastolic 37–100; PULSE 55–98; RESP 12–20; TEMP 96.4–98.2; O2SAT 86–98
[~2024-10-12] VITALS: Ht 190.5 cm; Wt 149.0 kg
[~2024-10-12 06:20] MED LIST changes: +APPL300T4 PO; -ASPI-325 PO; -ATOR40TA52 PO; -AUG875T PO; -BACL20TA PO; -FAMO20TA10 PO; +GARL200T PO; +GING250C2 PO; -METO-289 PO; -SUCR1TAB PO; +TURM500C3 OR; -ZOFR4T PO; +[UNRECOGNIZED DRUG - CODE] PO; +[UNRECOGNIZED DRUG - CODE] XX
[2024-10-12] MEDS: TRANEXAMIC ACID 20 ML ONE (07:13)
[2024-10-12] MEDS ORDERED: LACTATED RINGER'S 1,000 ML IV SCH (07:30)
[2024-10-12] MEDS ORDERED: ONDANSETRON HCL 4 MG/2 ML VIAL IV PRN ×2 (07:30→10:15)
[2024-10-12] MEDS ORDERED: NITROGLYCERIN 0.4 MG SL TAB SL PRN ×2 (07:30→10:30)
[2024-10-12] MEDS ORDERED: MORPHINE SULFATE INJ 2 MG/ml SYRG IV PRN ×2 (07:30→10:30)
[2024-10-12] MEDS ORDERED: HYDROmorphone HCL 2 MG/ML VL/or syr IV PRN (07:30)
[2024-10-12] MEDS: BUPIVACAINE 0.5% P/F INJ 10 ML VIAL ONE ×2 (07:36)
[2024-10-12] MEDS ORDERED: GLYCOPYRROLATE 0.2 MG/ML 1ML VIAL ONE (07:38)
[2024-10-12] MEDS ORDERED: KETAMINE 50mg/ML 10ml Vial 10 ML ONE (07:38)
[2024-10-12] MEDS ORDERED: ONDANSETRON HCL 4 MG/2 ML VIAL ONE (07:38)
[2024-10-12] MEDS ORDERED: MIDAZOLAM HCL 2MG/2ML 2ml VIAL (1mg/ml) ONE (07:38)
[2024-10-12] MEDS ORDERED: KETOROLAC TROMETH 30 MG/ML 1ML VIAL ONE (07:38)
[2024-10-12] MEDS ORDERED: fentaNYL CITRATE 100 MCG/2 ML VL ONE (07:38)
[2024-10-12] MEDS: ceFAZolin 2 GM/D5W50ml 50 ML IV ONE (08:15)
[2024-10-12] MEDS: CEFEPIME 1GM/ 50ML 50 ML IV ONE (08:15)
[2024-10-12] MEDS: VANCOMYCIN HCL 1000 MG VL ONE (08:44)
[2024-10-12] MEDS: BUPIVACAINE 0.25% INJ 50ML VIAL ONE (08:50)
[2024-10-12] MEDS: KETOROLAC TROMETH 30 MG/ML 1ML VIAL ONE (08:51)
[2024-10-12] MEDS ORDERED: diphenhdrAMINE HCL 50 MG/1 ML VL ONE (08:53)
[2024-10-12] MEDS: MORPHINE SULF PF 5 MG/10 ML VIAL ONE (08:58)
[2024-10-12] MEDS ORDERED: NALOXONE HCL 0.4 MG/ML VIAL IV PRN (10:15)
[2024-10-12] MEDS ORDERED: diphenhdrAMINE HCL 50 MG/1 ML VL IV PRN (10:15)
[2024-10-12] MEDS ORDERED: KETOROLAC TROMETH 30 MG/ML 1ML VIAL IV PRN (10:15)
[2024-10-12] MEDS: CEFEPIME 1GM/ 50ML 50 ML IV SCH (11:32)
[2024-10-12] MEDS: DOCUSATE SOD 100 MG CAP PO SCH (11:32)
--- NOTE | 2024-10-12 11:32 | DVH ---
EXAM: XY L KNEE 3V XRAY CLINICAL INDICATION: S/P SURGERY TECHNIQUE: XY L KNEE 3V XRAY Comparison: None FINDINGS/IMPRESSION: Status post left total knee arthroplasty.
[2024-10-12] MEDS: FUROSEMIDE 20 MG TAB PO SCH (11:33)
[2024-10-12] MEDS ORDERED: KETOROLAC TROMETH 30 MG/ML 1ML VIAL IV SCH (12:00)
[2024-10-12] MEDS: SODIUM CHLOR 0.9% PF (SALINE LOCK) 10ML VIAL/SYR IV SCH (14:00)
[2024-10-12] MEDS: ACETAMINOPHEN IV 1000 MG/100ML (10MG/ML) IV ONE (15:21)
[2024-10-12] MEDS: ceFAZolin 2 GM/D5W50ml 50 ML IV SCH (15:49)
[2024-10-12] MEDS: PANTOPRAZOLE 40 MG TAB PO SCH (16:52)
[2024-10-13] VITALS (17 sets, daily range): BP systolic 111–149; BP diastolic 55–104; PULSE 57–79; RESP 15–18; TEMP 97.5–97.9; O2SAT 90–99
[2024-10-13 07:33] LABS: Alanine Aminotransferase 18 U/L (7-40); Albumin 4.1 g/dL (3.2-4.8); Alkaline Phosphatase 59 U/L (46-116); Anion Gap 10 (5-15); BUN/Creatinine Ratio 17.1 (10.0-20.0); Bilirubin, Total 0.5 mg/dL (0.2-1.0); Blood Urea Nitrogen 22 mg/dL (9-23); Calcium 9.8 mg/dL (8.7-10.4); Carbon Dioxide 27 mmol/L (20-31); Chloride 102 mmol/L (98-107); Potassium 4.5 mmol/L (3.5-5.1); Sodium 139 mmol/L (136-145); Total Protein 6.1 g/dL (5.7-8.2)
[2024-10-13 07:36] LABS: Glucose 120 mg/dL (74-106)
--- NOTE | 2024-10-13 08:05 | DVHPN2 ---
Progress Note Date Seen: Oct 13, 2024 Has the PT tested + for MRSA If YES, has PT been informed?: No Medical Necessity Reason Pt with a Central, PICC or Fol: No Subjective Patient reports: No new complaints Objective vital signs Vital Sign Date Time Temp Pulse Resp B/P (MAP) Pulse Ox O2 Delivery O2 Flow Rate FiO2 10/13/24 06:41 57 15 97 10/13/24 05:00 97.9 126/62 (83) 97.9 10/12/24 19:55 Room Air* 0 21 Total Intake and Output 10/12/24 10/12/24 10/13/24 15:00 23:00 07:00 Intake Total 100 ml 1000 ml 850 ml Output Total 1200 ml Balance 100 ml 1000 ml -350 ml medications Current Medications Medications Dose Ordered Sig/Pilra Route Start Time Stop Time Status Last Admin Dose Admin Furosemide 20 mg DAILY PO 10/12/24 10:00 10/12/24 11:33 20 MG Cefepime HCl 50 ml @ 12.5 mls/hr DAILY IV 10/12/24 10:00 10/12/24 11:32 12.5 MLS/HR Pantoprazole Sodium 40 mg BID@0600,1700 PO 10/12/24 17:00 10/13/24 06:32 40 MG Ketorolac Tromethamine 15 mg Q6HR IV 10/12/24 12:00 10/13/24 18:01 Cancel Aspirin 81 mg BID PO 10/13/24 10:00 Sodium Chloride 10 ml Q8HR IV 10/12/24 14:00 10/13/24 06:32 10 ML Oxycodone/ Acetaminophen 1 tab Q4HP PRN PO 10/12/24 07:30 Hydromorphone HCl 1 mg Q2HP PRN IV 10/12/24 07:30 Ondansetron HCl 4 mg Q6HP PRN IV 10/12/24 07:30 Cancel Docusate Sodium 100 mg Q12HR PO 10/12/24 10:00 10/12/24 21:15 100 MG Nitroglycerin 0.4 mg Q5MINP PRN SL 10/12/24 07:30 Cancel Morphine Sulfate 2 mg Q30M PRN IV 10/12/24 07:30 Cancel Diphenhydramine HCl 25 mg Q4HP PRN IV 10/12/24 10:15 Ondansetron HCl 4 mg Q4HP PRN IV 10/12/24 10:15 Ketorolac Tromethamine 30 mg Q6HP PRN IV 10/12/24 10:15 10/17/24 10:14 Nitroglycerin 0.4 mg Q5MINP PRN SL 10/12/24 10:30 Morphine Sulfate 2 mg Q30M PRN IV 10/12/24 10:30 Examination: GENERAL:Normal, MSK:Abnormal laboratory and microbiology Laboratory Tests 10/13/24 05:45 10/09/24 09:40 Test 10/13/24 05:45 Range/Units Serum Glucose 120 H 74-106 mg/dL Problem List/Assessment/Plan Problem List/Assessment/Plan 64 year old male who is s/p Left TKA POD 1 1. Pain control 2. DVT ppx 3. CPM as ordered 4. physical therapy 5. follow up in 2 weeks at [facility] ortho clinic 6. prescriptions for pain narcotic, DVT ppx and antibiotic sent electronically via [facility] ortho clinic by Don moctezuma 7.d/c planning for home today as patient adamant about going home today with the following discharge recommendations: Total Knee Arthroplasty Discharge Instructions Wound Care 1. You will likely have a gel-type dressing over your wound, you may keep this on for 7-14 days after leaving the hospital until your first post-op visit, unless it becomes soiled or your skin becomes irritated. If a wound vac dressing is placed on your knee this is to be left in place for one week and will be changed as needed. After your remove the dressing or wound vac, the home health nurse may place clean dry dressing over your wound. Keep wound covered, clean and dry for two weeks. 2. Daniella will be removed during your initial post-op visit. If you have concerns about our wound, please call the office immediately. If nervous about staple removal can take pain pill one hour prior to appointment. 3. If there is drainage from your wound, change the dressing daily until it stops. If drainage lasts more than 10 days, call our office. 4. Low grade (up to 100 degrees) fever is common for the first week after surgery. You should take your temperature daily. If you have fevers of 101 or more, please call the office. Medication Management 1. You will be discharged with pain medication, a blood thinner (unless you were previously on a blood thinner prior to surgery) and stool softener. Please follow the instructions regarding these medications as provided by your nurse at the hospital upon discharge. 2. Blood clots in the leg are a known complication of surgery. It is very important that you take the medication to protect against clots. Depending on what you are discharged on typically it is Lovenox 40mg daily for 2 weeks or Aspirin 81mg twice daily for 4 weeks. After you finish this, you should then take baby Aspirin (81mg) once daily for 2 weeks. 3. You should restart all of your prescription medications once discharged from the hospital/surgery center unless specifically instructed otherwise. 4. Herbal supplements may be restarted 2 weeks after surgery. 5. If you have been given Coumadin as a blood thinner, please follow up with your actuarial consultant during the first two weeks after surgery to review medications and overall medical well-being. 6. Please note that narcotic pain medication may cause constipation. Please remember to take stool softeners (Colace) when using narcotics to help reduce the change of constipation. You should not use alcohol together with narcotic medication. Activity 1. CPM as ordered, goal is for 6 hours per day. Can break it up in to increments of 2-3 hours at a time. Goal is to be at 90 degrees by first postop visit in 2 weeks. 2. No pool, jacuzzi, beach, yin or bath for 6 weeks. Once all scabbing has fallen off patient can begin soaking and submerging knee under water for prolonged periods. 3. Physical therapy is critical in the first 2 weeks. If having issues with scheduling please inform office. 4. No running or jumping for 6 weeks. 5. Can walk and bear as much weight on the surgical leg as tolerated. No restrictions in regards to walking or standing. [facility] [place] Instructions 1. Driving is not permitted within the first 2 weeks. 2. Your first postoperative visit will take place 2 weeks after discharge. Please call the office once you are home from the hospital to arrange this appointment. 3. Antibiotic preventative treatment is required before dental or other invasive procedures. Please ask your surgeon about this at your first postoperative visit. If you experience chest pain, shortness of breath or severe painful calf swelling, go to the nearest emergency room to be evaluated. Please call our office once your situation is stabilized. Plan discussed with: Patient Date of Service: Oct 13, 2024 Billing Provider: DON LAUREN MD Common Visit Codes: NOT BILLABLE BREANN CHANDLER NP Oct 13, 2024 08:05
[2024-10-13] MEDS: ASPirin-EC 81 mg tab PO SCH (09:12)
--- NOTE | 2024-10-13 09:38 | DVHOP2 ---
Operative Report - 2 Report Details Date: 10/12/24 Preop Diagnosis: Left knee osteoarthritis Postop Diagnosis: as above Surgeon: Christo Lauren MD Lift Manager: Marciano SHAFER Anesthesiologist: Giovanny MAGALLON Anesthesia: Regional Implant: [employer] Cemented PS knee Consent: The patient was informed of the risks and benefits of the procedure. These include but are not limited to complications of anesthesia, postoperative infection, incomplete relief of symptoms, recurrence of symptoms, damage to blood vessels, nerves and tendons, deep venous thrombosis, pulmonary embolism and possible need for repeat surgery in the future. Estimated Blood Loss: 50 cc Name of Procedure Performed 1. Left total knee arthroplasty with computer navigation Procedure Details Procedure Details: INDICATION: This patient has failed non-operative treatments for knee arthritis and is now indicated for a total knee replacement. Preoperatively in the waiting area as well as in the office, I had a long discussion with the patient regarding the plan, the expected outcome, the risks, benefits, and alternatives of surgery. The risks include, but are not limited to, infection (which may require future surgery and removal of implants) , bleeding (which may require a transfusion), damage to nerves, arteries, veins, tendons, muscles and other adjacent structures. Also discussed the possibilities of intraoperative fractures, implant loosening, heterotopic bone formation, and revision for variety of reasons, and medical complications etc. This was discussed at length and consent has been obtained. DESCRIPTION OF PROCEDURE: In the preoperative holding area, the consent was reviewed and the appropriate extremity was verified by the patient and marked with my initials. The patient was then transferred to the operating theatre. Appropriate anesthesia was induced. All bony prominences were well padded. A time out was performed verifying the side and site of surgery according to standard protocol. Preoperative antibiotics were given 10 minutes prior to tourniquet inflation. Tranexamic acid was given. A well padded thigh tourniquet was applied. The extremity was then prepped and draped in the usual sterile fashion. The extremity was exsanguinated and the tourniquet was inflated. We then made a mid-line incision, which we continued to the underlying capsular tissue. We performed a medial parapatellar arthrotomy. We periosteally exposed the proximal tibia, excised the anterior fat pad and synovium from the distal aspect of the femur. We then subluxed the patella and brought the knee up into flexion. The lateral meniscus, ACL, and PCL were released. We used the appropriate guide with attached computer navigation to secure the distal femoral cutting block to the femur with pins and completed the distal femoral cut in 0 degrees to the mechanical axis with an oscillating saw. We removed the distal femoral cutting block and turned our attention to the tibia. We used the extramedullary tibial alignment guide with computer navigation to secure the proximal tibial cutting block to the tibia with pins, setting it for a 2 mm cut from the more involved side, and completed the proximal tibial cut. We then used the spacer block and alignment rohan to check the varus-valgus angle of our cuts and the extension gap. The knee was then balanced in extension to varus/valgus stress. We marked our femoral anatomy, including Pamela's line and the epicondylar axis. Using that as a rotational guide, we used the sizing guide to size our femur properly, using a stylus to ensure there would be no notching. We then used the AP cutting guide to make our anterior and posterior cuts and chamfer cuts with an oscillating saw. We again checked the flexion and extension gaps and coronal balancing. Next, we sized our tibia and secured a baseplate with appropriate rotation with pins. We placed a trial femur in position and completed preparation of the notch with reamers and box osteotome and placed a trial notch in position. We used trials to choose our liner size and then placed the liner in place and reduced the knee. We used an oscillating saw to resurface the patella, and used a guide to choose the button size and completed patella preparation with the drill. We then placed a trial button in place. At this point, we checked our seven parameters: 1) Limb alignment 2) Extension 3) Flexion against gravity 4) Flexion stability 5) Varus-valgus balancing 6) Component rotation 7) Patella tracking We were satisfied with these and removed all trials with the exception of the baseplate. We completed preparation of the tibia with the appropriate reamer and keel impactor and then removed the baseplate. We placed a bone plug in the distal femur and then irrigated and dried all bony surfaces and injected our pain cocktail. impacted our tibial, femoral and patellar components into position. We impacted our liner and reduced the knee and held it with axial loading. We released the tourniquet and achieved hemostasis where necessary. A dilute betadine solution (17.5mL in 500mL saline) was used to wash the joint and left to sit for 3 minutes. This was then irrigated out with copious amounts of pulse lavage. We sprinkled 1g vancomycin powder below the fascia and 1g above the fascia. We copiously irrigated the knee. We re-checked our seven parameters. We closed our capsular incision with a PDS style suture. We irrigated further. We closed the subcutaneous tissue with Vicryl suture and re-approximated the skin with aaron. We verified all lower extremity compartments were soft and compressible and that we had intact distal pulses. We wrapped the extremity in sterile Webril and humphrey bandage. The patient was transferred to the recovery room in stable condition. Specimen: Condition Good Disposition Still a Patient CHRISOT LAUREN MD Oct 13, 2024 09:38
--- NOTE | 2024-10-13 10:20 | DVHHP2 ---
Review of Systems Allergies: Coded Allergies: NO KNOWN ALLERGIES (Unverified , 06/04/21) Medications Current Medications Medications Dose Ordered Sig/Pilar Route Start Time Stop Time Status Last Admin Dose Admin Furosemide 20 mg DAILY PO 10/12/24 10:00 10/13/24 09:13 20 MG Cefepime HCl 50 ml @ 12.5 mls/hr DAILY IV 10/12/24 10:00 10/13/24 09:13 12.5 MLS/HR Pantoprazole Sodium 40 mg BID@0600,1700 PO 10/12/24 17:00 10/13/24 06:32 40 MG Ketorolac Tromethamine 15 mg Q6HR IV 10/12/24 12:00 10/13/24 18:01 Cancel Aspirin 81 mg BID PO 10/13/24 10:00 10/13/24 09:12 81 MG Sodium Chloride 10 ml Q8HR IV 10/12/24 14:00 10/13/24 06:32 10 ML Oxycodone/ Acetaminophen 1 tab Q4HP PRN PO 10/12/24 07:30 Hydromorphone HCl 1 mg Q2HP PRN IV 10/12/24 07:30 Ondansetron HCl 4 mg Q6HP PRN IV 10/12/24 07:30 Cancel Docusate Sodium 100 mg Q12HR PO 10/12/24 10:00 10/13/24 09:12 100 MG Nitroglycerin 0.4 mg Q5MINP PRN SL 10/12/24 07:30 Cancel Morphine Sulfate 2 mg Q30M PRN IV 10/12/24 07:30 Cancel Diphenhydramine HCl 25 mg Q4HP PRN IV 10/12/24 10:15 Ondansetron HCl 4 mg Q4HP PRN IV 10/12/24 10:15 Ketorolac Tromethamine 30 mg Q6HP PRN IV 10/12/24 10:15 10/17/24 10:14 Nitroglycerin 0.4 mg Q5MINP PRN SL 10/12/24 10:30 Morphine Sulfate 2 mg Q30M PRN IV 10/12/24 10:30 Exam Vital Signs Vital Signs Date Time Temp Pulse Resp B/P (MAP) Pulse Ox O2 Delivery O2 Flow Rate FiO2 10/13/24 09:13 126/104 10/13/24 09:00 97.6 64 18 98 97.6 10/12/24 19:55 Room Air* 0 21 Labs/Xrays Labs Test 10/13/24 05:45 10/09/24 09:40 Range/Units Sodium Level 139 136-145 mmol/L Potassium Level 4.5 3.5-5.1 mmol/L Chloride Level 102 98-107 mmol/L Carbon Dioxide Level 27 20-31 mmol/L Anion Gap 10 5-15 Blood Urea Nitrogen 22 9-23 mg/dL Creatinine 1.29 0.700-1.30 mg/dL Glomerular Filtration Rate Calc 62 >90 mL/min BUN/Creatinine Ratio 17.1 10.0-20.0 Serum Glucose 120 H 74-106 mg/dL Calcium Level 9.8 8.7-10.4 mg/dL Total Bilirubin 0.5 0.2-1.0 mg/dL Aspartate Amino Transferase (AST) 24 13-40 U/L Alanine Aminotransferase (ALT) 18 7-40 U/L Alkaline Phosphatase 59 46-116 U/L Total Protein 6.1 5.7-8.2 g/dL Albumin 4.1 3.2-4.8 g/dL White Blood Count 5.3 4.4-10.8 10^3/uL Red Blood Count 5.06 4.5-5.90 10^6/uL Hemoglobin 14.8 13.5-17.5 g/dL Hematocrit 43.9 41.0-53.0 % Mean Corpuscular Volume 86.6 80.0-100.0 fL Mean Corpuscular Hemoglobin 29.3 28.0-32.0 pg Mean Corpuscular Hemoglobin Concent 33.8 32.0-36.0 g/dL Red Cell Distribution Width 14.3 11.8-14.3 % Platelet Count 168 140-450 10^3/uL Mean Platelet Volume 8.7 6.9-10.8 fL Neutrophils (%) (Auto) 51.8 37.0-80.0 % Lymphocytes (%) (Auto) 35.9 10.0-50.0 % Monocytes (%) (Auto) 10.5 0.0-12.0 % Eosinophils (%) (Auto) 1.1 0.0-7.0 % Basophils (%) (Auto) 0.7 0.0-2.0 % Neutrophils # (Auto) 2.7 1.6-8.6 10 ^3/uL Lymphocytes # (Auto) 1.9 0.4-5.4 10 ^3/uL Monocytes # (Auto) 0.6 0-1.3 10 ^3/uL Eosinophils # (Auto) 0.1 0-0.8 10 ^3/uL Basophils # (Auto) 0 0-0.2 10 ^3/uL Nucleated Red Blood Cells 0.1 % Prothrombin Time 10.3 9.3-11.8 sec Prothrombin Time INR 0.97 0.9-1.15 Activated Partial Thromboplast Time 26.8 24.5-34.5 SEC Urine Color Light-yellow Yellow Urine Clarity Clear Clear Urine pH 7.5 5.0-9.0 Urine Specific [place] 1.008 1.001-1.035 Urine Protein Negative Negative Urine Ketones Negative Negative Urine Blood Negative Negative /uL Urine Nitrite Negative Negative Urine Bilirubin Negative Negative Urine Urobilinogen Normal Negative mg/dL Urine Leukocyte Esterase Negative Negative /uL Urine RBC None seen 0 - 3 /hpf Urine Microscopic WBC < 1 0-3 /HPF Urine Squamous Epithelial Cells None seen <5 /hpf Urine Bacteria None seen None Seen /hpf Urine Glucose Normal Normal mg/dL SEPSIS Sepsis Screen Physician Orders Communication Order (10/13/24 08:06) Discharge (10/13/24 10:18) * Firmware Software Verification Engineer Consult (10/13/24 ) Vital Signs Date Time Temp Pulse Resp B/P (MAP) Pulse Ox O2 Delivery O2 Flow Rate FiO2 10/13/24 09:13 126/104 10/13/24 09:00 97.6 64 18 126/104 (111) 98 97.6 10/13/24 06:41 57 15 97 10/13/24 05:41 59 16 95 10/13/24 05:00 97.9 71 18 126/62 (83) 97 97.9 10/13/24 04:41 58 15 96 10/13/24 03:41 78 18 99 10/13/24 02:41 68 16 96 Medications Medications Dose Ordered Sig/Pilar Route Start Time Stop Time Status Last Admin Dose Admin Aspirin 81 mg BID PO 10/13/24 10:00 10/13/24 09:12 81 MG Assessment/Plan Assessment/Plan see dictated note Plan discussed with: Patient My Orders Orders - RASHI VASQUEZ MD Procedure Category Date Status Time Discharge DISCHARGE 10/13/24 Transmitted 10:18 * Firmware Software Verification Engineer CONS 10/13/24 Transmitted Consult Date of Service: Oct 13, 2024 Billing Provider: RASHI VASQUEZ MD Common Visit Codes: 26662-DTELNOP INP/OBS CARE (HIGH) Secondary Visit Codes: 97695-PZPRITYH CARE PLAN 30 MINUTES RASHI VASQUEZ MD Oct 13, 2024 10:20
--- NOTE | 2024-10-13 10:21 | DVHDS2 ---
Discharge Summary Date of Admission Oct 12, 2024 at 07:23 Date of Discharge: Oct 13, 2024 Labs/Diagnostic Data: Laboratory Results Test 10/13/24 05:45 10/09/24 09:40 Sodium Level 139 mmol/L (136-145) Potassium Level 4.5 mmol/L (3.5-5.1) Chloride Level 102 mmol/L (98-107) Carbon Dioxide Level 27 mmol/L (20-31) Anion Gap 10 (5-15) Blood Urea Nitrogen 22 mg/dL (9-23) Creatinine 1.29 mg/dL (0.700-1.30) Glomerular Filtration Rate Calc 62 mL/min (>90) BUN/Creatinine Ratio 17.1 (10.0-20.0) Serum Glucose 120 mg/dL (74-106) Calcium Level 9.8 mg/dL (8.7-10.4) Total Bilirubin 0.5 mg/dL (0.2-1.0) Aspartate Amino Transferase (AST) 24 U/L (13-40) Alanine Aminotransferase (ALT) 18 U/L (7-40) Alkaline Phosphatase 59 U/L (46-116) Total Protein 6.1 g/dL (5.7-8.2) Albumin 4.1 g/dL (3.2-4.8) White Blood Count 5.3 10^3/uL (4.4-10.8) Red Blood Count 5.06 10^6/uL (4.5-5.90) Hemoglobin 14.8 g/dL (13.5-17.5) Hematocrit 43.9 % (41.0-53.0) Mean Corpuscular Volume 86.6 fL (80.0-100.0) Mean Corpuscular Hemoglobin 29.3 pg (28.0-32.0) Mean Corpuscular Hemoglobin Concent 33.8 g/dL (32.0-36.0) Red Cell Distribution Width 14.3 % (11.8-14.3) Platelet Count 168 10^3/uL (140-450) Mean Platelet Volume 8.7 fL (6.9-10.8) Neutrophils (%) (Auto) 51.8 % (37.0-80.0) Lymphocytes (%) (Auto) 35.9 % (10.0-50.0) Monocytes (%) (Auto) 10.5 % (0.0-12.0) Eosinophils (%) (Auto) 1.1 % (0.0-7.0) Basophils (%) (Auto) 0.7 % (0.0-2.0) Neutrophils # (Auto) 2.7 10 ^3/uL (1.6-8.6) Lymphocytes # (Auto) 1.9 10 ^3/uL (0.4-5.4) Monocytes # (Auto) 0.6 10 ^3/uL (0-1.3) Eosinophils # (Auto) 0.1 10 ^3/uL (0-0.8) Basophils # (Auto) 0 10 ^3/uL (0-0.2) Nucleated Red Blood Cells 0.1 % Prothrombin Time 10.3 sec (9.3-11.8) Prothrombin Time INR 0.97 (0.9-1.15) Activated Partial Thromboplast Time 26.8 SEC (24.5-34.5) Urine Color Light-yellow (Yellow) Urine Clarity Clear (Clear) Urine pH 7.5 (5.0-9.0) Urine Specific [place] 1.008 (1.001-1.035) Urine Protein Negative (Negative) Urine Ketones Negative (Negative) Urine Blood Negative /uL (Negative) Urine Nitrite Negative (Negative) Urine Bilirubin Negative (Negative) Urine Urobilinogen Normal mg/dL (Negative) Urine Leukocyte Esterase Negative /uL (Negative) Urine RBC None seen /hpf (0 - 3) Urine Microscopic WBC < 1 /HPF (0-3) Urine Squamous Epithelial Cells None seen /hpf (<5) Urine Bacteria None seen /hpf (None Seen) Urine Glucose Normal mg/dL (Normal) Other Laboratory Tests 10/13/24 05:45 10/09/24 09:40 Brief Hx & Hospital Course: see dictated note Condition at Discharge: Good Final Diagnosis/Problems List left knee surgery Discharge Disposition: Home Discharge Instruct/Medications Diet: Regular Activity: No Restrictions, As Tolerated Follow Up/Referral: fu with pcp/ortho Medications: resume home meds rest meds per ortho Scheduled Furosemide (Furosemide), 20 MG PO DAILY, (Reported) Miscellaneous Medications Allium Sativan Extract (Garlic), 200 MG PO, (Reported) Apple Cider Vinegar (Apple Cider Vinegar), 300 MG PO, (Reported) Cayenne/Garlic Powder (Cayenne Plus Garlic), 500 MG PO, (Reported) Curcuma Longa (Turmeric) Extra (Turmeric), 500 MG OR, (Reported) Paris (Paris Root), 250 MG PO, (Reported) Grapefruit Extract (Grapefruit Flavor [place]), 1 XX, (Reported) Discharge Statement: "Patient was advised to return to the ER or call 911 if any headaches, dizziness, shortness of breath, chest pain, abdominal pain, bleeding, fevers, or worsening of medical condition. Patient was counseled about treatment plan, medications, possible side effects, patientverbalized understanding. All questions were answered to the best of my ability. This discharge took greater then 30 minutes in planning, reviewing documentation, counseling the patient, and discussing with other team members." ASSESSMENT ASSESSMENT Assessment left knee surgery Date of Service: Oct 13, 2024 Billing Provider: RASHI VASQUEZ MD Common Visit Codes: 48510-NQY/OBS DISCH DAY >30min RASHI VASQUEZ MD Oct 13, 2024 10:21
--- NOTE | 2024-10-13 10:32 | DVHHP ---
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 The patient at this time denies any significant pain. No chest pain, no shortness of breath, no nausea or vomiting. REVIEW OF SYSTEMS: Otherwise currently negative. PAST MEDICAL HISTORY: Significant for questionable hypertension. MEDICATIONS: He takes herbal medications, although Lasix is also in his record. ALLERGIES: No known drug allergies. SOCIAL HISTORY: Denies smoking or alcohol. He lives at home with his . FAMILY HISTORY: Negative. PHYSICAL EXAMINATION: GENERAL: The patient is awake and alert. VITAL SIGNS: Temperature of 97.9, pulse 59 per minute, blood pressure 126/62. SHEENT: Unremarkable. NECK: There is no JVD. No pedal edema. LUNGS: Equal bilaterally. No added sounds. CARDIOVASCULAR: S1 and S2 is regular. No murmurs. ABDOMEN: Soft. There is no organomegaly. NEUROLOGIC: Nonfocal. MUSCULOSKELETAL: Left knee is currently in a dressing. ASSESSMENT AND PLAN: * Morbid obesity. * Questionable hypertension. * Status post left knee surgery for DJD of the knee for which he will receive pain medication and physical therapy. * Advanced care planning: The patient is a full code-Time spent is 18 minutes. MD WENDY Junior/LAWRENCE TID: [id number] RECEIPT: [id number] MTDD
--- NOTE | 2024-10-13 10:41 | DVHDS ---
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 HOSPITAL COURSE: The patient did well postoperatively. His pain is under control and he has been ambulating. The patient will now be discharged home once arrangements are made for home therapy. He will be on medications as per Orthopedics. He will follow up with his primary and orthopedic clinic. FINAL DIAGNOSES: * Morbid obesity. * Questionable hypertension. * Status post left knee surgery for DJD of the knee. Time spent in discharge planning and review of plan with the patient and nursing was 36 minutes. MD WENDY Junior/JAVON TID: [id number] RECEIPT: [id number]
[2024-10-13] MEDS: OXYCODONE W/ ACETAMINOPHEN 5/325MG TABLET PO PRN (13:54)
== END 2024-10-13 14:15 | disposition home or self-care (01) | DRG 470 ==
LOC: SUR 06:20 → OVERFLOW 07:23 → TELE-CENTR 11:09
PROVIDERS: ADMIT Internal Medicine; ATTEND Internal Medicine
PROC: 0SRD0J9 Replacement of Left Knee Joint with Synthetic Substitute, Cemented, Open Approach (ICD-10-PCS; principal; 2024-10-12 07:50)
DX: M17.12 Unilateral primary osteoarthritis, left knee (principal); E66.01 Morbid (severe) obesity due to excess calories; I10 Essential (primary) hypertension; Z79.899 Other long term (current) drug therapy; Z68.38 Body mass index [BMI] 38.0-38.9, adult
CPT/HCPCS: 36415; 73562; 80053; 81001; 85025; 85610; 85730; 86850; 86900; 86901; 97110; 97116; 97163; G0378; J1100; J1885; J2250; J2405; J3490